=== PATIENT | male | born 1935 | race Caucasian/White ===

== ENCOUNTER → 2016-11-14 | Outpatient (CLI) | payer OTHER ==
[~2016-11-14] MED LIST: ACET-1256 PO; CEPH500C2 PO; HYDRTAB8 PO
[2016-11-14 13:17] LABS: BASO % 0.5 %; BASO ABS # 0.03 K/uL (0-0.2); COMPLETE YES; EOS % 1.6 %; HEMATOCRIT 47.8 % (42-52); IG% 0.2 %; LYMPH % 29.8 %; LYMPH ABS # 1.72 K/uL (1.2-3.4); MEAN CELL VOLUME 91.2 fL (80-100); MEAN CORPUSCULAR HEMOGLOBIN 30.3 pg (25-34); MEAN CORPUSCULAR HGB CONC 33.3 g/dl (32-36); MEAN PLATELET VOLUME 12.1 fL (7.4-10.4); MONO % 10.4 %; NEUT % 57.5 %; PLATELET COUNT 211 K/uL (130-400); RED BLOOD COUNT 5.24 M/uL (4.7-6.1); WHITE BLOOD COUNT 5.77 K/uL (4.8-10.8)
[2016-11-14 13:31] LABS: ALT/SGPT 19 U/L (12-78); BLOOD UREA NITROGEN 30 mg/dl (7-18); BUN/CREATININE RATIO 30.3 (10-20); CALCIUM 9.4 mg/dl (8.5-10.1); CARBON DIOXIDE 27 mmol/L (21-32); CHLORIDE 106 mmol/L (98-107); ESTIMATED AVERAGE GLUCOSE 123 mg/dl; GLUCOSE 147 mg/dl (70-99); HA1C FLAG Normal (Normal); POTASSIUM 4.5 mmol/L (3.5-5.1); SODIUM 142 mmol/L (136-145)
[2016-11-14 13:34] LABS: ALB/GLOB RATIO 1.3 (0.9-2); ALKALINE PHOSPHATASE 66 U/L (45-117); AST/SGOT 13 U/L (15-37)
== END | disposition home or self-care (01) ==
LOC: C.LABSPEC 12:40
PROVIDERS: ATTEND Internal Medicine
DX: R73.9 Hyperglycemia, unspecified (principal); M25.511 Pain in right shoulder

== ENCOUNTER → 2016-11-15 | Outpatient (CLI) | payer OTHER ==
--- NOTE | 2016-11-15 10:09 | DIAGNOSTIC IMAGING REPORT ---
RIGHT SHOULDER MIN 2 VIEWS ROUTINE CLINICAL HISTORY: Right shoulder pain. COMPARISON: None FINDINGS: Alignment of the right shoulder is anatomic. There is moderate AC joint arthritis and mild glenohumeral joint arthritis. No fracture or suspicious lesion is identified on this examination. IMPRESSION: 1. Moderate arthritis of the right acromioclavicular joint and mild arthritis of the glenohumeral joint. 2. No acute fracture or dislocation of the right shoulder. Electronically signed by: Ector Westfall M.D. 11/15/2016 10:07 AM Dictated Date/Time: 11/15/2016 10:06 AM
== END | disposition home or self-care (01) ==
LOC: C.RAD 09:17
PROVIDERS: ATTEND Internal Medicine
DX: M19.011 Primary osteoarthritis, right shoulder (principal)

== ENCOUNTER → 2016-11-28 | Day surgery (SDC) | payer OTHER ==
[2016-11-14 14:17] VITALS: Ht 177.8 cm; Wt 109.1 kg
--- NOTE | 2016-11-15 07:39 | CONSULTATION REPORT ---
DATE OF CONSULTATION: 11/14/2016 PREOPERATIVE CONSULTATION NOTE An 81-year-old male scheduled to undergo a right cataract surgery on 11/28/2016. He came in today for preoperative examination. MEDICAL PROBLEMS: Include: 1. 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 2. Left inguinal hernia repair on 12/23/2011. 3. Appendectomy in the remote past. 4. Nephrolithiasis with a stone at the right ureterovesicular junction, requiring intervention. 5. Osteoarthritis. 6. Crush injury of the left foot with IP dislocation and fracture of the distal phalanx. 7. History of colonic polyp. Last colonoscopy in 2011. 8. Left cataract surgery in 2011. CURRENT MEDICATIONS: Include Aleve on a p.r.n. basis. He is doing quite well. He denied any headache. No dizziness, no lightheadedness. Decreased vision right eye, scheduled for cataract surgery; he is status post left. He does have dentures. No earache, sore throat or neck pain. No chest pain, pressure or tightness. No shortness of breath. No abdominal pain, no nausea, no vomiting. No problem with his bowel movements. No problem urinating. He is complaining of right shoulder pain, this has been going on since last fall, he was doing a lot of raking. Denied any ankle edema. PHYSICAL EXAMINATION: GENERAL: Well developed, in no distress. Weight 242 pounds, height 70 inches, BMI 34.72. VITAL SIGNS: Blood pressure 148/86, pulse 80 and regular, temperature 97.9. SKIN: Warm and dry. No rash. HEENT: Wears glasses. Decreased vision right eye. Has dentures. No mucosal abnormalities in his nose, mouth or throat. NECK: Supple. Nontender. No adenopathy, no thyromegaly. No JVD. No bruit. HEART: Regular heart sounds without any murmur, rub or gallop. LUNGS: Clear. No wheezing, no rhonchi. ABDOMEN: Soft, nontender, without organomegaly or masses. Surgical scars. BACK: No spinal tenderness. EXTREMITIES: No edema, clubbing or cyanosis. Right shoulder tenderness with range of motion but the range of motion is not limited. Absent left dorsalis pedis pulse. NEUROLOGIC: He is alert and oriented. There is no evidence of any deficit. LABORATORY TESTS: 1. Electrocardiogram showed a normal sinus rhythm. First-degree AV block. No other abnormalities noted. 2. Laboratory tests which were done today included CBC with WBC count 5770, hemoglobin 15.9, hematocrit 47.8, platelet count 211,000. Sodium 142, potassium 4.5, chloride 106, CO2 of 27, BUN 30, creatinine 1.0, glucose 147, this is not fasting, hemoglobin A1c 5.9%, calcium 9.4, total bilirubin 0.5, AST 13, ALT 19, alkaline phosphatase 66, total protein 7.0, albumin 3.9. ASSESSMENT: 1. Right cataract. Scheduled for surgery. 2. Right shoulder pain, most likely osteoarthritic in nature. 3. History of left cataract surgery. 4. History of nephrolithiasis. 5. History of retropubic prostatectomy. 6. Osteoarthritis. 7. History of colonic polyp which was hyperplastic. PLAN: 1. Overall, he is doing well. 2. All his laboratory tests were done and reviewed. 3. I did order an x-ray of his right shoulder. We will get that done. 4. I do not see any contraindication to his anticipated right cataract surgery.
[~2016-11-28] VITALS: Ht 177.8 cm; Wt 109.1 kg
[~2016-11-28] MED LIST changes: +500ML BSS 0.3ML EPI 1:1000PF IRRIG ONE; -ACET-1256 PO; +ACETAMINOPHEN 325 MG TAB PO PRN; +AMVISC PLUS 0.8ML SYRINGE INT OCU ONE; +ATROPINE SULFATE 0.1 MG/ML 5ML SYR IV PRN; +BSS FLUSH ONE; -CEPH500C2 PO; +EpHEDrine SULFATE INJ 50 MG/ML AMP IV PRN; +EpINEphrine INJ 1MG/ML AMP 1 MG/ML AMP ONE; -HYDRTAB8 PO; +LACTATED RINGER'S 1000ML 500 ML IV SCH; +LIDOCAINE 3.5% OPH GEL PER APPLICATION CHARGE ONE; +LIDOCAINE HCL 1% MPF 2 ML VIAL ONE; +MIDAZOLAM HCL 1 MG/ML 2ML VIAL ONE; +MIX: 4ML BSS 1ML EPI 1:1000 PF INSTIL ONE; +NURSING VERBAL MED ORDER ONE; +OCUCOAT 1 ML SOLN IO ONE; +PHENYLEPHRINE HCL 10% OP SOLN PER DROP CHARGE OPR SCH; +POVIDONE-IODINE OP SOLN 30 ML BTL ONE; +PROPARACAINE 0.5% OP SOLN PER DROP CHARGE OPR SCH; +TOBRAMYCIN/DEXAMETHASONE OPH OINT PER APPLN CHARGE ONE
[2016-11-28] MEDS: PHENYLEPHRINE HCL 2.5% OP SOLN PER DROP CHARGE OPR SCH ×2 (06:51→06:56)
[2016-11-28] MEDS: TROPICAMIDE 1% OP SOLN PER DROP CHARGE OPR SCH ×2 (06:52→06:57)
[2016-11-28] MEDS: CYCLOPENTOLATE HCL 1% OP SOLN PER DROP CHARGE OPR SCH ×2 (06:53→06:58)
[2016-11-28] MEDS: KETOROLAC 0.5% OP SOLN PER DROP CHARGE OPR SCH ×2 (06:54→06:59)
[2016-11-28] MEDS: GATIFLOXACIN OP SOLN PER DROP CHARGE OPR SCH ×2 (06:55→07:05)
--- NOTE | 2016-11-28 06:57 | History & Physical Bridge - [place] ---
H&P Re-Evaluation Bridge Note: I have examined the patient, reviewed the History & Physical and in the interval since the performance of the History & Physical I have noted the following changes of clinical significance: No changes noted
--- NOTE | 2016-11-28 07:52 | Discharge Instructions-SurgCtr ---
Discharge Instructions Visit Reason for Visit: Cataract Right Eye Discharge Discharge Diagnosis / Problem: cataract Discharge Goals Goal(s): Improve function Activity Recommendations Activity Limitations: per Instructions/Follow-up section Anesthesia . Post Anesthesia Instructions: If you have had General Anesthesia or IV Sedation: * Do not drive today. * Resume driving when surgeon permits. * Do not make important decisions or sign legal documents today. * Call surgeon for: 1. Temperature elevations greater than 101 degrees F. 2. Uncontrollable pain. 3. Excessive bleeding. 4. Persistent nausea and vomiting. 5. Medication intolerance (nausea, vomiting or rash). * For nausea and vomiting use only clear liquids such as: tea, soda, bouillon until nausea subsides, then gradually increase diet as tolerated. * If you have any concerns or questions, call your surgeon's office. If physician is unavailable and it is an emergency, call 911 or go to the nearest emergency room. . Instructions / Follow-Up Instructions / Follow-Up ACTIVITY RECOMMENDATIONS: * No strenuous lifting, jogging or running for 4 days * No swimming or yard work for 1 week. * Limited bending is permitted, such as putting on shoes. RETURN TO SCHOOL/WORK: No work until seen by physician in office. MEDICATIONS: Resume previous medications unless instructed otherwise by your surgeon. This includes eye drops for glaucoma. Zymaxid/Gatifloxacin (hernandez cap) - one drop every 2 hours until bedtime Nevanac/Ilevro/Prolensa/Ketorolac (tarango cap) - one drop every 4 hours until bedtime Prednisolone (white/pink cap, SHAKE WELL) - one drop every 2 hours until bedtime Starting tomorrow - all 3 drops every 4 hours until seen in the office Optive drops - as needed for discomfort SPECIAL CARE INSTRUCTIONS: * Wear eyeshield when sleeping, for four nights. * You may wear your own glasses or sunglasses while awake. * You may read or watch TV * You may shower and wash your face, but be gentle around the eye and pat dry. * Blurry vision and mild irritation are normal. * Call office if pain is more severe or vision becomes dark at . FOLLOW UP VISIT: Follow-up with Dr Nelson tomorrow. Diet Recommendations Home Diet: resume previous diet Procedures Procedures Performed: Right Cataract Phacoemulsification With Intraocular Lens Implant Pending Studies Studies pending at discharge: no Medical Emergencies . Who to Call and When: Medical Emergencies: If at any time you feel your situation is an emergency, please call 911 immediately. . Non-Emergent Contact Non-Emergency issues call your: Administrator Pesticide . . "Provider Documentation" section prepared by Guilherme Nelson.
--- NOTE | 2016-11-28 07:53 | [facility] Operative Report ---
Operative Report 1. PREOPERATIVE DIAGNOSIS: Cataract of the right eye. 2. POSTOPERATIVE DIAGNOSIS: Same. 3. PROCEDURE: Phacoemulsification with intraocular lens implantation of the right eye. SURGEON: Dr. Guilherme Nelson. ANESTHESIA: Topical Lidocaine gel, 1% Non- Preserved intracameral Lidocaine, and monitored intravenous sedation. INDICATIONS FOR THE PROCEDURE: The patient is a 81 - year-old male with a history of cataract of the right eye causing significant visual impairment. The details of the proposed procedure were explained to the patient who asked appropriate questions and following discussion of all risks, benefits and alternatives agreed to have the procedure done. The patient had a know history of taking of flomax. 4. OPERATION AND FINDINGS: DESCRIPTION OF PROCEDURE: After informed consent was obtained, the patient was brought to the Operating Room at the [facility]. The patient was placed in a supine position and then the right eye was prepped and draped in the usual sterile fashion for intraocular surgery. A drop of topical Lidocaine gel was placed in the operative eye. A wire lid speculum was then placed in the fornices. A corneal paracentesis was then created temporally. The Non-Preserved Lidocaine was then instilled into the anterior chamber. Epinephrine with a 1:4 dilution was instilled into the anterior chamber. The anterior chamber was then pressurized with viscoelastic. A 2.0 mm clear corneal incision was then created temporally. A cystotome was inserted into the anterior chamber and used to create a tear in the anterior lens capsule. This capsular tear was then used to create a small flap and the flap was dragged in a counterclockwise direction in order to create a continuous curvilinear capsulorrhexis. Hydrodissection was accomplished with balanced salt solution. Phacoemulsification of the lens nucleus was then performed in a standard [id number] technique. The phaco time was 28 seconds with an average power of 10 %. The remaining cortical material was removed using irrigation aspiration. The capsular bag was then filled with viscoelastic. A Bausch [employer] Lomb MI60L +22.0 diopters lens was then loaded into the injector and injected into the capsular bag. The remaining viscoelastic was removed with the irrigation aspiration handpiece. The wound was hydrated and then checked and found to be watertight. The intraocular pressure was checked and found to be adequate. The wire lid speculum was removed and the patient's face was cleaned and dried. TobraDex ointment was placed in the inferior fornix. The patient was discharged to the Recovery Room having tolerated the procedure well. There were no complications. The patient will be seen tomorrow in the office for follow-up. I attest to the content of the Intraoperative Record and any orders documented therein. Any exceptions are noted below.
[2016-11-28 08:03] VITALS: TEMP 36.4
--- NOTE | 2016-11-28 08:03 | Anesthesia Progress Nt - [facility] ---
Anesthesia Post Op Note Date & Time Nov 28, 2016 at 08:03 Vital Signs Pain Intensity: 0 Vital Signs Past 12 Hours Date Time Temp Pulse Resp B/P Pulse Ox O2 Delivery O2 Flow Rate FiO2 11/28/16 06:40 36.8 77 18 170/91 94 Room Air Notes Mental Status: alert / awake / arousable, participated in evaluation Pt Amnestic to Procedure: Yes Nausea / Vomiting: adequately controlled Pain: adequately controlled Airway Patency, RR, SpO2: stable & adequate BP & HR: stable & adequate Hydration State: stable & adequate Anesthetic Complications: no major complications apparent
[2016-11-28 08:13] VITALS: BP 149/87; PULSE 64; O2SAT 97
== END | disposition home or self-care (01) ==
LOC: X.SURG 06:36
PROVIDERS: ATTEND Ophthalmology
DX: H26.9 Unspecified cataract (principal); H54.7 Unspecified visual loss

== ENCOUNTER → 2017-02-07 | Outpatient (CLI) | payer OTHER ==
--- NOTE | 2017-02-07 15:26 | DIAGNOSTIC IMAGING REPORT ---
ORBIT RADIOGRAPHS 3 VIEWS HISTORY: pre-MRI screening. COMPARISON: None. FINDINGS: There are no radiopaque foreign bodies identified within the orbits. IMPRESSION: No radiopaque foreign bodies identified within the orbits. Electronically signed by: Leighton Masterson M.D. 02/07/2017 3:24 PM Dictated Date/Time: 02/07/2017 3:24 PM
--- NOTE | 2017-02-07 17:26 | DIAGNOSTIC IMAGING REPORT ---
MRI right shoulder pain CLINICAL HISTORY: RIGHT SHOULDER Pain; r/o ROTATOR TEAR Right TECHNIQUE: Multiaxial MRI acquisition COMPARISON STUDY: None FINDINGS: Generalized atrophy and deterioration of the glenohumeral and acromioclavicular joints. Moderate hypertrophic change of the acromioclavicular joint with mild impingement. Hill-Sachs type deformity of the posterior lateral aspect humeral head. Degenerative change of the articular services of the glenohumeral joint. Full-thickness tear supraspinatus tendon. General maceration and deterioration of the supraspinatus musculotendinous complex. No significant musculotendinous retraction. Moderate subscapularis tendinitis. The infraspinatus tendon is intact. Moderate edematous change with superimposed biceps tendinitis. Focal tear anterior glenoid labrum. Remainder the glenoid labrum shows mild degenerative substance change. IMPRESSION: 1. Full-thickness tear supraspinatus tendon with no significant musculotendinous retraction. 2. Subscapularis tendinitis with considerable biceps tendinitis. 3. Tear anterior glenoid labrum. 4. Generalized degenerative changes of the articular services the glenohumeral region with hypertrophic change acromioclavicular joint. 5. Hill-Sachs type deformity posterior lateral aspect humeral head Electronically signed by: Reji Morse M.D. 02/07/2017 5:23 PM Dictated Date/Time: 02/07/2017 5:20 PM
== END | disposition home or self-care (01) ==
LOC: C.RADBC 15:05
PROVIDERS: ATTEND Orthopaedic Surgery
DX: M75.91 Shoulder lesion, unspecified, right shoulder (principal); M19.011 Primary osteoarthritis, right shoulder; M75.21 Bicipital tendinitis, right shoulder; M75.101 Unspecified rotator cuff tear or rupture of right shoulder, not specified as traumatic

== ENCOUNTER → 2017-07-18 | Outpatient (CLI) | payer OTHER ==
[2017-07-18 17:51] LABS: BASO % 0.5 %; BASO ABS # 0.03 K/uL (0-0.2); COMPLETE YES; EOS % 2.2 %; HEMATOCRIT 46.3 % (42-52); IG% 0.3 %; LYMPH % 25.8 %; LYMPH ABS # 1.64 K/uL (1.2-3.4); MEAN CORPUSCULAR HEMOGLOBIN 30.8 pg (25-34); MEAN CORPUSCULAR HGB CONC 33.9 g/dl (32-36); MEAN PLATELET VOLUME 11.9 fL (7.4-10.4); MONO % 10.5 %; NEUT % 60.7 %; PLATELET COUNT 230 K/uL (130-400); RED BLOOD COUNT 5.09 M/uL (4.7-6.1); WHITE BLOOD COUNT 6.36 K/uL (4.8-10.8)
[2017-07-18 18:07] LABS: ALT/SGPT 19 U/L (12-78); AST/SGOT 13 U/L (15-37); BLOOD UREA NITROGEN 19 mg/dl (7-18); CALCIUM 8.8 mg/dl (8.5-10.1); CARBON DIOXIDE 29 mmol/L (21-32); CHLORIDE 106 mmol/L (98-107); CHOLESTEROL 173 mg/dl (0-200); GLUCOSE 95 mg/dl (70-99); POTASSIUM 4.4 mmol/L (3.5-5.1); SODIUM 140 mmol/L (136-145)
[2017-07-18 18:18] LABS: ALB/GLOB RATIO 1.1 (0.9-2); ALKALINE PHOSPHATASE 69 U/L (45-117); CHOLESTEROL/HDL RATIO 3.9; HDL CHOLESTEROL 44 mg/dl; TRIGLYCERIDES 134 mg/dl (0-150); VERY LOW DENSITY LIPOPROT CALC 27 mg/dl
[2017-07-19 07:21] LABS: ESTIMATED AVERAGE GLUCOSE 126 mg/dl; HA1C FLAG Normal (Normal)
== END | disposition home or self-care (01) ==
LOC: C.LABSPEC 17:28
PROVIDERS: ATTEND Internal Medicine
DX: E78.5 Hyperlipidemia, unspecified (principal); R53.83 Other fatigue; R73.9 Hyperglycemia, unspecified

== ENCOUNTER → 2017-07-21 | Outpatient (CLI) | payer OTHER | END | disposition home or self-care (01) | LOC: C.LABSPEC 14:56 | PROVIDERS: ATTEND Internal Medicine | DX: Z12.11 Encounter for screening for malignant neoplasm of colon (principal) ==

== ENCOUNTER 2023-08-27 08:26 | Observation (INO) ==
--- NOTE | 2023-08-21 14:39 | Anesthesiology Consultation ---
Date of Service August 21, 2023 Assessment & Plan (1) Encounter for pre-operative examination: - Infectious disease screening: Per professor of law on 08/21/23: No known infectious disease contacts or current infectious disease symptoms. - Outpatient joint assessment: Pt currently scheduled for inpatient pathway. If surgeon requests review for outpatient joint pathway, patient is not recommended candidate for outpatient joint program from anesthesia standpoint. - Surgery was originally scheduled for 08/20/23 but postponed as patient arrived for surgery but did not follow NPO guidelines per communication note from that day (per , he ate few pieces of dry cereal approximately 0530 prior to noticing/instructing him to stop). Spoke with patient's (Nupur) 08/21/23- reinforced NPO after midnight before surgery instructions. She indicates that she/patient are aware to follow NPO guidelines strictly prior to rescheduled surgery. Chart Review Chart Review: Acceptable Risk for Surgery and Patient seen in Pre Admission Testing (07/25/23) History Surgery Operation Date: 08/27/23 13:15 Proposed Procedures p Right Total Knee Arthroplasty - Sean Moreno MD Height/Weight Height: 5 ft 10 in Weight: 111.584 kg Allergies Allergy/AdvReac Type Severity Reaction Status Date / Time No Known Allergies Allergy Verified 08/21/23 14:17 Medications Home Medications Medication Instructions Recorded Confirmed Last Taken aspirin 81 mg tablet,delayed 81 mg PO DAILY 03/19/21 08/21/23 Unknown release furosemide 40 mg tablet 40 mg PO BID 03/19/21 08/21/23 Unknown lisinopril 10 mg tablet 10 mg PO QAM 03/19/21 08/21/23 Unknown potassium chloride 10 mEq 10 meq PO DAILY 03/19/21 08/21/23 Unknown capsule,extended release allopurinol 200 mg tablet 200 mg PO QAM 07/23/23 08/21/23 Unknown naproxen sodium 220 mg tablet 220 mg PO BID PRN Pain 07/23/23 08/21/23 Unknown Past Medical History Medical History Pre-diabetes CKD (chronic kidney disease), stage III HTN (hypertension) Gout Right knee DJD History of melanoma in situ History of SCC (squamous cell carcinoma) of skin History of basal cell carcinoma Past Family History Family History Other No pertinent family history Past Surgical History Surgical History Hx of squamous cell carcinoma excision Hx of basal cell carcinoma excision Hx of melanoma excision Hx of colonoscopy History of prostate surgery History of hernia repair Multiple (including Right inguinal) History of cataract surgery R/L Social History Smoking Status: Never smoker Do You Dip or Chew Tobacco: Yes (advised) Hx Alcohol Use: No Hx Substance Use: No substance use type: does not use Lab Results Anesthesia Preop Results Results Anesthesia Widget: WBC 4.24 K/ul (4.8-10.8) L 07/25/23 Hgb 13.9 g/dl (14.0-18.0) L 07/25/23 Hct 42.7 % (42.0-52.0) 07/25/23 Plt 209 K/uL (130-400) 07/25/23 Na 138 mmol/L (136-145) 07/25/23 K 4.8 mmol/L (3.5-5.1) 07/25/23 Cl 105 mmol/L (98-107) 07/25/23 CO2 30 mmol/L (21-32) 07/25/23 BUN 22 mg/dl (6-23) 07/25/23 Creat 1.10 mg/dl (0.6-1.4) 07/25/23 Glucose Level 112 mg/dl (70-99(Fasting)) H 07/25/23 PT 10.7 Seconds (9.0-12.0) 07/25/23 PTT 27.8 Seconds (21.0-31.0) 07/25/23 INR 1.0 (0.9-1.1) 07/25/23 Urine Color Yellow 07/25/23 Urine Appearance Clear (Clear) 07/25/23 Urine pH 6.0 (4.5-7.5) 07/25/23 Urine Specific Grant 1.019 (1.000-1.030) 07/25/23 Urine Protein Negative (Negative) 07/25/23 Urine Glucose (UA) Negative (Negative) 07/25/23 Urine Ketones Negative (Negative) 07/25/23 Urine Blood Negative (Negative) 07/25/23 Urine Nitrite Negative (Negative) 07/25/23 Urine Bilirubin Negative (Negative) 07/25/23 Urine Urobilinogen Negative (Negative) 07/25/23 Urine Leukocyte Esterase Negative (Negative) 07/25/23 Blood Type A Positive 07/25/23 Antibody Screen NEGATIVE 07/25/23 Testing Electrocardiogram Date: 07/25/23 SB with first degree AVB at 55bpm. "Otherwise normal ECG" Chest X-Ray Date: 07/25/23 FINDINGS: PA and lateral chest radiographs are compared to study dated 03/19/2021. The heart is enlarged noting atherosclerotic calcification of the thoracic aorta. The pulmonary vasculature is noncongested. Chronic interstitial thickening similar to previous. Scarring/atelectasis is noted at the lung bases. The lungs and pleural spaces are otherwise clear. There is no pneumothorax. The skeletal structures are osteopenic. The bony thorax appears intact. IMPRESSION: Cardiomegaly with no active disease in the chest. Echocardiogram Date: 10/25/20 EF 55-60%. No regional wall motion abnormality. Borderline concentric LVH. No significant valvular disease. Grade I DD.
--- NOTE | 2023-08-25 17:39 | History & Physical Report ---
Date of Service August 25, 2023 Assessment & Plan (1) Primary osteoarthritis of right knee: Plan: Treatment options discussed with the patient. He has failed conservative measures and would like to proceed with surgery. Risks, benefits and alternatives to surgery including but not limited to infection, DVT, pain, stiffness, need for revision surgery, damage to blood vessels, damage to nerves, PE, , were discussed with the patient and they wish to proceed. Plan on right total knee arthroplasty scheduled for 08/27/23 at [facility] with Dr. Moreno. Plan on aspirin 81mg twice daily for 1 mo post op for DVT prophylaxis. Plan on outpatient physical therapy. All questions answered. Patient will follow up post op. History of Present Illness Chief Complaint: Right knee pain Primary Care Provider: Brian Ramirez MD 88yo male with PMHx significant for HTN, gout, CKD who presents with ongoing right knee pain. Pain is interfering with his daily activity. He has failed conservative measures and would like to proceed with surgery. Patient denies headaches, sweats, fevers, chills, double vision, blurred vision, cough, sore throat, dysphagia, chest pain, sob, wheezing, n/v/d/c, numbness, tingling, fatigue, urinary symptoms, mood disorders. ROS positive for right knee pain and stiffness. Allergies Allergy/AdvReac Type Severity Reaction Status Date / Time No Known Allergies Allergy Verified 08/21/23 14:17 Home Medications Medication Instructions Recorded Confirmed Type aspirin 81 mg tablet,delayed 81 mg PO DAILY 03/19/21 08/21/23 History release furosemide 40 mg tablet 40 mg PO BID 03/19/21 08/21/23 History lisinopril 10 mg tablet 10 mg PO QAM 03/19/21 08/21/23 History potassium chloride 10 mEq 10 meq PO DAILY 03/19/21 08/21/23 History capsule,extended release allopurinol 200 mg tablet 200 mg PO QAM 07/23/23 08/21/23 History naproxen sodium 220 mg tablet 220 mg PO BID PRN Pain 07/23/23 08/21/23 History Past Med/Surg History Medical History Pre-diabetes CKD (chronic kidney disease), stage III HTN (hypertension) Gout Right knee DJD History of melanoma in situ History of SCC (squamous cell carcinoma) of skin History of basal cell carcinoma Surgical History Hx of squamous cell carcinoma excision Hx of basal cell carcinoma excision Hx of melanoma excision Hx of colonoscopy History of prostate surgery History of hernia repair Multiple (including Right inguinal) History of cataract surgery R/L Family History Other No pertinent family history Social History Smoking Status: Never smoker Tobacco Type: Smokeless Tobacco (Dip or Chew) Second Hand Exposure: No; Do You Dip or Chew Tobacco: Yes (advised); Tobacco Cessation Education Requested by Patient: No Hx Alcohol Use: No Hx Substance Use: No Preferred Language: Thai Communication Ability: Effective 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 Beliefs That Will Affect Care: None Current Living Situation: Spouse Other Information That Helps Us Care for You: No Feels Safe at Home: Yes Safety Concerns: Feels Safe At This Time Assistive Devices: Brace/Splint/Immobilizer, Cane, Denture - Upper, Denture - Lower and Glasses Assistive Devices Comment: reading glasses prn Review of Systems All systems reviewed & are unremarkable except as noted in HPI & below Physical Exam Constitutional: well developed and well nourished; no acute distress Eyes: PERRL, conjunctivae normal, anicteric sclerae ENMT: external ear and nose normal, oropharynx normal Neck: trachea midline, no thyromegaly Respiratory: normal respiratory effort, lungs clear to auscultation Cardiovascular: RRR, no murmur, no edema Musculoskeletal: Right knee: Varus alignment. Medial joint line tenderness. Positive Zachary's. ROM 10-110 degrees. Stable to valgus and varus stress. Skin: no rashes, warm and dry Neurologic: patellar DTR's 2+ bilat, sensation intact Psychiatric: A+Ox3, euthymic affect Results & Data Diagnostic Findings Right knee radiographs: End-stage osteoarthritis right knee, [id number] medial compartment. There is defect of the medial femoral condyle, could be area of osteonecrosis versus collapse insufficiency fracture.
[~2023-08-27 08:26] MED LIST changes: -500ML BSS 0.3ML EPI 1:1000PF IRRIG ONE; -ACETAMINOPHEN 325 MG TAB PO PRN; +ACETAMINOPHEN 500 MG TAB PO SCH; -AMVISC PLUS 0.8ML SYRINGE INT OCU ONE; -ATROPINE SULFATE 0.1 MG/ML 5ML SYR IV PRN; -BSS FLUSH ONE; +CeleBREX 200 MG CAP PO SCH; -EpHEDrine SULFATE INJ 50 MG/ML AMP IV PRN; -EpINEphrine INJ 1MG/ML AMP 1 MG/ML AMP ONE; +FAMOTIDINE 20 MG TAB PO SCH; +GABAPENTIN 300 MG CAP PO SCH; -LACTATED RINGER'S 1000ML 500 ML IV SCH; -LIDOCAINE 3.5% OPH GEL PER APPLICATION CHARGE ONE; -LIDOCAINE HCL 1% MPF 2 ML VIAL ONE; +LR 500ML BOLUS, THEN 15ML/HR IV SCH; +LR 60ML/HR IV SCH; +METOCLOPRAMIDE HCL 10 MG TABLET PO SCH; -MIDAZOLAM HCL 1 MG/ML 2ML VIAL ONE; -MIX: 4ML BSS 1ML EPI 1:1000 PF INSTIL ONE; -NURSING VERBAL MED ORDER ONE; -OCUCOAT 1 ML SOLN IO ONE; -PHENYLEPHRINE HCL 10% OP SOLN PER DROP CHARGE OPR SCH; -POVIDONE-IODINE OP SOLN 30 ML BTL ONE; -PROPARACAINE 0.5% OP SOLN PER DROP CHARGE OPR SCH; +ROPIVACAINE 0.5% 5 MG/ML 30 ML VIAL ONE; +ROPIVACAINE 0.5% HCL/PF 150 MG, BUPIVACAINE 0.75% MPF 20 ML, EPINEPHrine 30MG/30ML (OR ... INSTIL SCH; -TOBRAMYCIN/DEXAMETHASONE OPH OINT PER APPLN CHARGE ONE; +TRANEXAMIC ACID 1,000 MG **IV Intra-op IV SCH; +TRANEXAMIC ACID 1,000 MG **IV Pre-op IV SCH; +ceFAZolin 2000MG 2,000 MG/15 ML SYR IV SCH; +dexAMETHasone 4 MG TAB PO SCH
[2023-08-27] MEDS ORDERED: PROPOFOL IV EMULSION 10 MG/ML 20 ML VIAL IV ONE ×3 (09:02→12:56)
[2023-08-27] MEDS ORDERED: LIDOCAINE 2% 2 ML VIAL/AMP(20MG/ML) INFIL ONE (09:02)
[2023-08-27] MEDS ORDERED: ePHEDrine sulfate 50 MG/ML AMP IV PRN (09:08)
[2023-08-27] MEDS ORDERED: ONDANSETRON INJ 2 MG/ML 2 ML VIAL IV PRN ×2 (09:08→17:06)
[2023-08-27] MEDS ORDERED: HYDROmorphone INJ 1 MG/ML SYRINGE IV PRN (09:08)
[2023-08-27] MEDS ORDERED: ATROPINE SULFATE 0.1 MG/ML 10ML SYR IV PRN (09:08)
[2023-08-27] MEDS ORDERED: fentaNYL citrate PF 100 MCG/2 ML VIAL ONE (09:41)
[2023-08-27] MEDS ORDERED: MIDAZOLAM HCL 1 MG/ML 2ML VIAL ONE (09:41)
--- NOTE | 2023-08-27 09:59 | History & Physical Bridge Note ---
Date of Service August 27, 2023 History & Physical Bridge Note I have examined the patient, reviewed the History & Physical and in the interval since the performance of the History & Physical I have noted the following changes of clinical significance: no changes noted
[2023-08-27] MEDS ORDERED: ORTHO JOINT ANESTHETIC ONE (10:01)
--- NOTE | 2023-08-27 13:18 | Post Operative Brief Note ---
Immediate Post Op Note v1 Date of Surgery August 27, 2023 Pre & Post Diagnosis Operation Date: 08/27/23 10:05 Pre-Op Diagnosis: Right Knee Osteoarthritis Post-Op Diagnosis: Right Knee Osteoarthritis I identified the patient and participated in the time-out.: Yes Procedure Operation Date: 08/27/23 10:05 Actual Procedures p Right Total Knee Arthroplasty(Right), roly and Acticoat superficial wound VAC application- Sean Moreno MD Surgeon Sean Moreno MD Rnfa Junaid MIRAMONTES Estimated Blood Loss 5 Findings Consistent with Post-Op Diagnosis Specimens Bone cuts Drains Davila Catheter (16F placed, 10cc balloon) Anesthesia Type MAC Spinal Regional Complications none Disposition Disposition: Recovery Room Overlapping Procedure I was immediately available: during the entire case.
--- NOTE | 2023-08-27 13:32 | Operative Report ---
Post Operative Report Pre & Post Diagnosis Operation Date: 08/27/23 10:05 Pre-Op Diagnosis: Right Knee Osteoarthritis Post-Op Diagnosis: Right Knee Osteoarthritis I identified the patient and participated in the time-out.: Yes Procedure Operation Date: 08/27/23 10:05 Actual Procedures p Right Total Knee Arthroplasty(Right) application manisha and Acticoat superficial wound VAC- Sean Moreno MD Surgeon Sean Moreno MD Wiping Rag Washer Junaid MIRAMONTES Estimated Blood Loss 5 Findings Consistent with Post-Op Diagnosis Specimens Bone cuts Drains 2 Hemovac and a Davila catheter Anesthesia Type MAC Spinal Regional Complications none Disposition Disposition: Recovery Room Indications Very active 88-year-old male with severe end-stage osteoarthritis right knee with varus knee some bone loss in the medial compartment. Description of Procedure Patient taken to the operating room the size under spinal MAC regional block anesthesia. Patient was placed supine on the operating table. A pneumatic tourniquet was placed about the right upper thigh. The right lower extremity was prepped and draped in sterile fashion. Knee exam demonstrated moderately large knee effusion a 10 degree flexion contracture with flexion to 120 degrees with no pseudolaxity tight varus knee and some chronic edema below the knee pretibial and ankle area . The leg was elevated exsanguinated with an Esmarch bandage and pneumatic tourniquet was raised to 325 millimeters of mercury. Skin incised sharply in longitudinal fashion. Subcutaneous flaps elevated. Incision was made through the medial retinaculum extending up in the mid third of the quadriceps tendon and down to the medial tibial tubercle. Intra-articular findings demonstrated severe medial compartment osteoarthritis with bone loss some of the medial tibial plateau with grade 4 arthritic changes medial compartment. Chronic medial meniscus tear. Moderate patellofemoral osteoarthritis. Some relatively scarred synovium in the suprapatellar pouch. The Floqlon total knee arthroplasty system was used. To expose the knee the infrapatellar fat pad was resected. The meniscal remnants and cruciate ligaments were resected. The anterior fat pad over the femur in the area of the location of the anterior flange of the femoral component was resected. The lateral synovial bands were released. The femur was exposed. An intramedullary drill hole was made into the canal. A guide denise was placed. Distal femoral cutting guide was adjusted to resect a 5 degree valgus cut with 10 millimeters distal femur resected. Bone quality was extremely hard and this was noted throughout the rest of the cuts throughout the the procedure. The knee was extended and a subperiosteal peel lateral release was performed around the patella. Patella width was measured and width was reproduced using a freehand cut technique and a 36 x 10 symmetrical patella component. The 3 drill holes were made and the excess lateral facet was beveled off to prevent any impingement. Attention was taken back to the femur which was exposed with retractors and the femoral sizing guide was pinned in position. The drill holes were placed in 3 of external rotation to match the epicondylar axis. The femur sized for a 7 component. The 4-in-1 cutting block was placed and then the anterior posterior and chamfer cuts are made. The tibia was then subluxed. The external tibial cutting guide was adjusted to make a perpendicular cut to the long axis of the tibia below the most deficient bone loss side. Cut was adjusted for slope. A lamina speech therapist technician was used and the flexion extension gaps were balanced. Medial releases were required including pie crusting MCL. All posterior osteophytes removed. All meniscal remnants were resected. The tibia exposed and the trial tibial component size 6 was externally rotated in line with the tibial tubercle and pinned in position. The punch for stem was used. The notch cutting device was centered appropriately and the femoral notch cut was made. The femoral trial was inserted. Trial tibial inserts were placed and size 13 gave balanced ligaments through flexion and extension. Patella tracking was assessed. The patella tracked centrally. The trial components were then removed and the orthomix anesthetic cocktail was injected per protocol. The knee was then copiously irrigated with pulsatile lavage saline solution. Final components were then cemented with Refobacin cement. Final components were triathlon size 7 right posterior stabilized femoral component, 6 primary tibial baseplate, 13 mm X.3 polyethylene tibial posterior stabilized bearing insert, 36 x 10 mm symmetrical polyethylene patella X.3 polyethylene. After the cement cur ed the Betadine soak was used for 3 minutes. Further pulsatile lavage irrigation was then performed and 2 Hemovac drains were brought out laterally. The quadriceps tendon and medial retinaculum were closed with figure of 8 #1 Vicryl sutures. The knee was taken through full range of motion and the repair was secure. Knee range of motion was 0 through 130 degrees. The subcutaneous tissues were closed with 2-0 Vicryl sutures. Skin was closed with maribell. Manisha and Acticoat superficial wound VAC was applied. The patient tolerated the procedure well. Junaid MIRAMONTES was my physician radiology physician assistant who participated as residential living assistant and was involved in all aspects of the procedure including patient positioning prepping and draping,leg positioning ,soft tissue retraction and instrument management and participated in the closing and application of superficial wound VAC and will participate in postoperative care of the patient. The patient tolerated the procedure well. I attest to the content of the Intraoperative Record and any orders documented therein. Any exceptions are noted below.
--- NOTE | 2023-08-27 14:05 | Anesthesiology Progress Note ---
Date of Service August 27, 2023 Anesthesia Post Procedure Vital Signs Vital Signs: Temp Pulse Pulse Resp BP Pulse Ox O2 Del Method 08/27/23 13:45 50 L 14 138/66 100 Nasal Cannula 08/27/23 13:35 54 L 14 134/72 100 Nasal Cannula 08/27/23 13:25 64 14 145/63 H 98 Nasal Cannula 08/27/23 13:16 36.4 C L 61 16 115/66 99 Nasal Cannula 08/27/23 08:53 37 C 68 18 174/79 H 98 Room Air O2 Flow Rate 08/27/23 13:45 2 08/27/23 13:35 3 08/27/23 13:25 3 08/27/23 13:16 3 08/27/23 08:53 Transfer of Care Handoff Completed per policy Notes Mental Status: alert / awake / arousable Patient Amnestic to Procedure: Yes Nausea / Vomiting: adequately controlled Pain: adequately controlled Airway Patency, RR, SpO2: stable & adequate BP & HR: stable & adequate Hydration State: stable & adequate Anesthetic Complications: no major complications apparent
--- NOTE | 2023-08-27 14:18 | XRay Report ---
TWO VIEWS RIGHT KNEE CLINICAL HISTORY: Postoperative examination. FINDINGS: AP and crosstable lateral portable views of the right knee are obtained. A right knee arthr oplasty is in near anatomic alignment. There has been undersurface remodeling of the patella. No acut e fracture is seen. There are expected postoperative changes around the knee including skin clips, a surgical drain, soft tissue edema, and subcutaneous gas. There is atherosclerotic calcification of th e popliteal artery. IMPRESSION: Expected postoperative changes status post right knee arthroplasty. No acute fracture is seen. ACT 112: Negative or not required by law. Electronically signed by: August Al M.D. 08/27/2023 2:16 PM
[2023-08-27] MEDS ORDERED: METOCLOPRAMIDE HCL INJ 5 MG/ML 2 ML VIAL IV PRN (17:06)
[2023-08-27] MEDS ORDERED: MAGNESIUM HYDROXIDE SUSP 30 ML UDC PO PRN (17:06)
[2023-08-27] MEDS ORDERED: bisacodyL 10 MG SUPP PR PRN (17:06)
[2023-08-27] MEDS ORDERED: HYDROmorphone INJ 0.5 MG/0.5 ML SYR IV PRN (17:06)
[2023-08-27] MEDS ORDERED: NALOXONE HCL 0.4 MG/1 ML VIAL/CARP IV PRN (17:06)
[2023-08-27] MEDS: SODIUM CHLORIDE 0.9% 1,000 ML IV SCH (17:14)
[2023-08-27] MEDS: ACETAMINOPHEN 500 MG TAB PO SCH (17:45)
[2023-08-27] MEDS: ceFAZolin 2000MG 2,000 MG/15 ML SYR IV SCH (19:46)
--- NOTE | 2023-08-27 20:15 | Hospitalist Consultation ---
Date of Consultation August 27, 2023 Assessment & Plan (1) S/P total knee arthroplasty: 88 M with PMH hypertension, CKD 3, gout, and severe right osteoarthritis, now POD#0 s/p right TKA. S/p right TKA/right knee osteoarthritis -Tolerated well without complications. Currently stable. * Continue pain control regimen: Scheduled Tylenol 1000 mg every 8 hours, p.o. oxycodone 5 mg every 4 hours as needed, IV hydromorphone 0.5 mg every 4 hours as needed * Continue cefazolin 2 g every 8 hours * Trend a.m. labs. Replete electrolytes as indicated CKD 3 -Chronic. On lisinopril 10 mg. * Continue Gout -Chronic. On allopurinol 200 mg. * Continue Code: Full code Dispo: Med-Surg FEN/GI: Regular DVT Prophylaxis: Holding, postop (2) Primary osteoarthritis of right knee: (3) CKD (chronic kidney disease), stage III: (4) HTN (hypertension): (5) Gout: Supervising Physician Co-Signing Physician Notes Attending addendum: I have physically seen this patient, have supervised the medical residents activities, and agree with the H&P unless as otherwise noted. Assessment and Plan: Status post right total knee arthroplasty- Seen postoperatively is medically stable Pain control per primary service CKD stage III/chronic lower extremity edema- On lisinopril as outpatient, Can continue as long as renal profile remains stable Continue furosemide and potassium for Renal function panel and magnesium every morning History of Present Illness Attending Physician: Sean Moreno MD History of Present Illness Star is an 88-year-old man with a history of hypertension, CKD 3, gout (on allopurinol) and severe right knee osteoarthritis, is now s/p right TKA. Hospitalist service consulted for med management. Allergies Allergy/AdvReac Type Severity Reaction Status Date / Time No Known Allergies Allergy Verified 08/27/23 08:45 Home Medications Medication Instructions Recorded Confirmed Type furosemide 40 mg tablet 40 mg PO BID 03/19/21 08/27/23 History lisinopril 10 mg tablet 10 mg PO QAM 03/19/21 08/27/23 History potassium chloride 10 mEq 10 meq PO DAILY 03/19/21 08/27/23 History capsule,extended release allopurinol 200 mg tablet 200 mg PO QAM 07/23/23 08/27/23 History acetaminophen 500 mg tablet 1,000 mg (2 x 500 mg) PO Q8 #60 08/29/23 Rx (Tylenol Extra Strength) tabs aspirin 81 mg tablet,delayed 81 mg PO BID #60 tabs 08/29/23 Rx release oxycodone 5 mg tablet 5 - 10 mg (1 - 2 x 5 mg) PO 08/29/23 Rx .Q4h-6h PRN pain #30 tabs Patient History Medical History (Updated 08/27/23 @ 20:31 by Josh Alamo MD) Pre-diabetes CKD (chronic kidney disease), stage III HTN (hypertension) Gout Right knee DJD History of melanoma in situ History of SCC (squamous cell carcinoma) of skin History of basal cell carcinoma Surgical History (Updated 08/27/23 @ 20:18 by Josh Alamo MD) Hx of squamous cell carcinoma excision Hx of basal cell carcinoma excision Hx of melanoma excision Hx of colonoscopy History of prostate surgery History of hernia repair Multiple (including Right inguinal) History of cataract surgery R/L Family History Other No pertinent family history Social History Smoking Status: Never smoker Tobacco Type: Smokeless Tobacco (Dip or Chew) Second Hand Exposure: No; Do You Dip or Chew Tobacco: Yes (advised); Hx Alcohol Use: No Hx Substance Use: No Preferred Language: Congolese Communication Ability: Effective Switchboard Clerk Required: No Beliefs That Will Affect Care: None Current Living Situation: Spouse Feels Safe at Home: Yes Assistive Devices: Cane Review of Systems Review of Systems: All systems reviewed & are unremarkable except as noted in HPI & below Physical Exam Physical Exam: General: No acute distress Respiratory: Normal respiratory effort, CTABL. Cardiovascular: RRR without murmurs, gallops, or rubs. No pedal edema. GI: Soft abdomen with normal bowel sounds heard on auscultation. Nontender x4 quadrants Extremity (right): knee is covered in dressing. Dressing is clean, dry and intact. Neuro: Alert and oriented x3. Results & Data Results & Data Vital Signs (Past 12 Hours) Vital Signs Temp Pulse Pulse Resp BP Pulse Ox O2 Del Method 08/27/23 18:27 36.6 C 71 16 165/71 H 96 Room Air 08/27/23 17:33 75 16 157/79 H 94 Room Air 08/27/23 17:15 Room Air 08/27/23 17:04 36.5 C 67 16 158/76 H 95 Room Air 08/27/23 16:40 36.5 C 77 17 158/71 H 96 Room Air 08/27/23 15:45 36.4 C L 61 16 148/71 H 100 Room Air 08/27/23 14:45 36.4 C L 67 15 157/91 H 100 Nasal Cannula 08/27/23 14:15 36.4 C L 48 L 18 135/66 100 Nasal Cannula 08/27/23 13:45 50 L 14 138/66 100 Nasal Cannula 08/27/23 13:35 54 L 14 134/72 100 Nasal Cannula 08/27/23 13:25 64 14 145/63 H 98 Nasal Cannula 08/27/23 13:16 36.4 C L 61 16 115/66 99 Nasal Cannula 08/27/23 08:53 37 C 68 18 174/79 H 98 Room Air O2 Flow Rate 08/27/23 18:27 08/27/23 17:33 08/27/23 17:15 08/27/23 17:04 08/27/23 16:40 08/27/23 15:45 0 08/27/23 14:45 2 08/27/23 14:15 2 08/27/23 13:45 2 08/27/23 13:35 3 08/27/23 13:25 3 08/27/23 13:16 3 08/27/23 08:53 Resident Activity Tracking Resident Involvement: Resident Care Provided Care Provided: Adult Hospital Medicine (1) S/P total knee arthroplasty Laterality: right Qualified Code(s): Z96.651 - Presence of right artificial knee joint (3) CKD (chronic kidney disease), stage III Chronic kidney disease stage 3 subtype: unspecified whether 3a or 3b Qualified Code(s): N18.30 - Chronic kidney disease, stage 3 unspecified (4) HTN (hypertension) Hypertension type: unspecified Qualified Code(s): I10 - Essential (primary) hypertension (5) Gout Chronicity: unspecified Laterality: unspecified laterality
[2023-08-27] MEDS: CeleBREX 200 MG CAP PO SCH (20:22)
[2023-08-27] MEDS: FUROSEMIDE 40 MG TAB PO SCH (20:22)
[2023-08-27] MEDS: ASPIRIN 81 MG ECTAB PO SCH (20:22)
[2023-08-27] MEDS ORDERED: DOCUSATE SODIUM 100 MG CAP PO SCH (21:00)
[2023-08-27] MEDS ORDERED: SENNA 8.6 MG TAB PO SCH (21:00)
[2023-08-28] MEDS: ceFAZolin 2000MG 2,000 MG/15 ML SYR IV SCH (03:16)
[2023-08-28] MEDS: SODIUM CHLORIDE 0.9% 1,000 ML IV SCH (04:19)
[2023-08-28] MEDS: ACETAMINOPHEN 500 MG TAB PO SCH ×3 (05:54→21:32)
--- NOTE | 2023-08-28 07:40 | Orthopedic Progress Note ---
Date of Service August 28, 2023 Assessment & Plan (1) Primary osteoarthritis of right knee: Plan: Postop day #1 right total knee arthroplasty -PT/OT -Pain management as written -DVT prophylaxis: SCDs, teds, aspirin 81 mg twice daily -A.m. labs are pending -Discharge planning: Plan on discharge home with home health when stable. Currently Hemovac over 200 last shift. Will monitor Hemovac output throughout the day and likely discharge home tomorrow. Admission and Anticipated Discharge Date Admission Date: August 27, 2023 Subjective Patient is postop day 1 right total knee. He is doing well this morning. Pain is controlled. No other complaints. Denies chest pain, shortness of breath, nausea/vomiting/diarrhea, headaches or dizziness. He did have an episode overnight in which she attempted to go to the bathroom by himself with a cane. Nursing staff assisted him back to bed. Review of Systems Review of Systems: All systems reviewed & are unremarkable except as noted in Subjective Physical Exam Physical Exam: Right knee: Dressing is clean, dry, intact. Toes are mobile with good dorsiflexion. No calf tenderness. Patient is able to straight leg raise With no extensor lag. Constitutional: WD/WN, vitals as above Results & Data Vital Signs (Past 12 Hours) Vital Signs Temp Pulse Resp BP Pulse Ox O2 Del Method 08/28/23 07:14 36.7 C 62 16 161/81 H 95 Room Air 08/28/23 02:54 36.5 C 67 18 160/75 H 96 Room Air 08/28/23 01:30 36.5 C 75 20 160/82 H 95 Room Air 08/27/23 23:15 36.5 C 66 18 133/66 96 Room Air 08/27/23 20:00 Room Air 08/27/23 20:00 36.4 C L 78 20 174/89 H 96 Room Air
[2023-08-28] MEDS: CeleBREX 200 MG CAP PO SCH (07:51)
[2023-08-28] MEDS: ASPIRIN 81 MG ECTAB PO SCH ×2 (07:51→21:32)
[2023-08-28] MEDS: FUROSEMIDE 40 MG TAB PO SCH ×2 (07:51→17:19)
[2023-08-28] MEDS: allopurinoL 100 MG TAB PO SCH (07:52)
[2023-08-28] MEDS: lisinopril 10 MG TAB PO SCH (07:52)
[2023-08-28] MEDS: POTASSIUM CHLORIDE 10 MEQ TABCR PO SCH (07:53)
[2023-08-28] MEDS: MULTIVITAMIN TAB PO SCH (07:53)
[2023-08-28 08:13] LABS: Hemoglobin 13.4 g/dl (14.0-18.0); Mean Corpuscular Hemoglobin 30.5 pg (25.0-34.0); Mean Corpuscular Hgb Conc 33.5 g/dL (32.0-36.0); Mean Corpuscular Volume 91.1 fL (80.0-100.0); Mean Platelet Volume 10.8 fL (9.4-12.4); Platelet Count 202 K/uL (130-400); RDW Coefficient of Variation 12.9 % (11.5-14.5); RDW Standard Deviation 42.5 fL (36.4-46.3); Red Blood Count 4.39 M/uL (4.70-6.10); White Blood Count 11.37 K/ul (4.8-10.8)
[2023-08-28 08:43] LABS: BUN Creatinine Ratio 20.2 (10-20); Calcium 8.5 mg/dl (8.6-10.3); Creatinine Clr Calc Pharmacy 49.2 ml/min; Est GFR (African American) 57.4 ml/min; Est GFR (Non-African American) 49.5 ml/min; Magnesium 1.7 mg/dl (1.7-2.4); Phosphorus 2.8 mg/dl (2.5-4.9); Potassium 4.3 mmol/L (3.5-5.1)
--- NOTE | 2023-08-28 19:11 | Hospitalist Progress Note ---
Date of Service August 28, 2023 Assessment & Plan (1) Primary osteoarthritis of right knee: Plan: Postop day #1right total knee arthroplasty Pain is fairly managed, possible discharge tomorrow according to orthopedic note - (2) Gout: Plan: Continue allopurinol (3) HTN (hypertension): Plan: Blood pressure is fairly managed with the current treatment (4) CKD (chronic kidney disease), stage III: Plan: Stable Admission and Anticipated Discharge Date Admission Date: August 27, 2023 Subjective I spoke to the patient, the pain is fairly managed, patient has a LEIGHANN drain, complaining of dribbling, stating that this has been going on since he had prostatectomy Physical Exam Physical Exam: Right knee: Dressing is clean, dry, intact. Toes are mobile with good dorsiflexion. No calf tenderness. Patient is able to straight leg raise With no extensor lag. Constitutional: WD/WN, vitals as above well developed and well nourished; no acute distress Eyes: PERRL, conjunctivae normal, anicteric sclerae ENMT: Mouth: + dentures Mallampati Class: I Neck: trachea midline, no thyromegaly normal visual inspection Respiratory: normal respiratory effort, lungs clear to auscultation normal respiratory effort Auscultation: lungs clear to auscultation bilaterally Cardiovascular: RRR, no murmur, no edema Rate/Rhythm: regular rate and regular rhythm Skin: no rashes, warm and dry Neurologic: patellar DTR's 2+ bilat, sensation intact Psychiatric: A+Ox3, euthymic affect Results & Data Results & Data Vital Signs (Past 12 Hours) Vital Signs Temp Pulse Resp BP Pulse Ox O2 Del Method 08/28/23 14:41 36.6 C 63 16 127/68 97 Room Air 08/28/23 08:21 Room Air 08/28/23 07:14 36.7 C 62 16 161/81 H 95 Room Air PG Care Time/CCT Total # of Minutes Spent Total Time Spent with Patient: Total time spent is greater than 50% in coordination of care (as documented) at patient's floor/unit and/or counseling patient: Coding Level of Care Code 31844 SUB INP/OBS CARE 2/35MIN Diagnoses Primary osteoarthritis of right knee M17.11 Gout M10.9 Chronicity: unspecified Laterality: unspecified laterality Hypertension, unspecified type I10 Hypertension type: unspecified Stage 3 chronic kidney disease, unspecified whether stage 3a or 3b CKD N18.30 Chronic kidney disease stage 3 subtype: unspecified whether 3a or 3b (2) Gout Chronicity: unspecified Laterality: unspecified laterality (3) HTN (hypertension) Hypertension type: unspecified Qualified Code(s): I10 - Essential (primary) hypertension (4) CKD (chronic kidney disease), stage III Chronic kidney disease stage 3 subtype: unspecified whether 3a or 3b Qualified Code(s): N18.30 - Chronic kidney disease, stage 3 unspecified
[2023-08-28] MEDS: POLYETHYLENE (MIRALAX) 17 GM PACK PO PRN (21:36)
[2023-08-29] MEDS: oxyCODONE HCL IR 5 MG TAB (IMMEDIATE RELEASE) PO PRN ×2 (00:03→10:54)
[2023-08-29] MEDS: ACETAMINOPHEN 500 MG TAB PO SCH (06:06)
--- NOTE | 2023-08-29 07:09 | Orthopedic Progress Note ---
Date of Service August 29, 2023 Assessment & Plan (1) Primary osteoarthritis of right knee: Plan: Postop day #2 right total knee arthroplasty -PT/OT -Pain management as written -DVT prophylaxis: SCDs, teds, aspirin 81 mg twice daily -AM labs from POD#1 demonstrate mild leukocytosis likely reactive due to surgical stress vs perioperative steroids. Patient is asymptomatic. Only mild drop in Hgb from 13.9 preop to 13.4. -Discharge planning: Plan on discharge home with home health today. Admission and Anticipated Discharge Date Admission Date: August 27, 2023 Subjective Patient resting in bed, easily awoken. Doing well. Pain controlled. Hemovac d/c early this AM. Ambulating well. No current complatins. Denies chest pain, sob, dizziness, headaches. Review of Systems Review of Systems: All systems reviewed & are unremarkable except as noted in Subjective Physical Exam Physical Exam: Right knee: Manisha dressing is clean, dry, intact. Mild post operative swelling, no erythema. Toes are mobile with good dorsiflexion. No calf tenderness. Distally n/v status and sensation grossly intact. Constitutional: WD/WN, vitals as above Results & Data Vital Signs (Past 12 Hours) Vital Signs Temp Pulse Resp BP Pulse Ox O2 Del Method 08/28/23 20:42 36.5 C 66 18 128/53 L 95 Room Air Laboratory Results Lab Results 08/28/23 Range/Units 07:54 WBC 11.37 H (4.8-10.8) K/ul RBC 4.39 L (4.70-6.10) M/uL Hgb 13.4 L (14.0-18.0) g/dl Hct 40.0 L (42.0-52.0) % MCV 91.1 (80.0-100.0) fL MCH 30.5 (25.0-34.0) pg MCHC 33.5 (32.0-36.0) g/dL RDW Std Deviation 42.5 (36.4-46.3) fL RDW Coeff of Herbie 12.9 (11.5-14.5) % Plt Count 202 (130-400) K/uL MPV 10.8 (9.4-12.4) fL Sodium 137 (136-145) mmol/L Potassium 4.3 (3.5-5.1) mmol/L Chloride 103 (98-107) mmol/L Carbon Dioxide 30 (21-32) mmol/L Anion Gap 4 (3-11) BUN 26 H (6-23) mg/dl Creatinine 1.29 (0.6-1.4) mg/dl Est Cr Clr Drug Dosing 49.2 ml/min Est GFR ( Amer) 57.4 ml/min Est GFR (Non-Af Amer) 49.5 ml/min BUN/Creatinine Ratio 20.2 H (10-20) Glucose 130 H (70-99(Fasting)) mg/dl Calcium 8.5 L (8.6-10.3) mg/dl Phosphorus 2.8 (2.5-4.9) mg/dl Magnesium 1.7 (1.7-2.4) mg/dl
--- NOTE | 2023-08-29 07:15 | Discharge Summary ---
Date of Service August 29, 2023 Admission HPI Per Admitting Provider 88yo male with PMHx significant for HTN, gout, CKD who presents with ongoing right knee pain. Pain is interfering with his daily activity. He has failed conservative measures and would like to proceed with surgery. Patient denies headaches, sweats, fevers, chills, double vision, blurred vision, cough, sore throat, dysphagia, chest pain, sob, wheezing, n/v/d/c, numbness, tingling, fatigue, urinary symptoms, mood disorders. ROS positive for right knee pain and stiffness. Admission Exam Per Admitting Provider Constitutional: well developed and well nourished; no acute distress Eyes: PERRL, conjunctivae normal, anicteric sclerae ENMT: external ear and nose normal, oropharynx normal Neck: trachea midline, no thyromegaly Respiratory: normal respiratory effort, lungs clear to auscultation Cardiovascular: RRR, no murmur, no edema Musculoskeletal: Right knee: Varus alignment. Medial joint line tenderness. Positive Zachary's. ROM 10-110 degrees. Stable to valgus and varus stress. Skin: no rashes, warm and dry Neurologic: patellar DTR's 2+ bilat, sensation intact Psychiatric: A+Ox3, euthymic affect Principal Diagnosis Right knee osteoarthritis Discharge Exam Right knee: Manisha dressing is clean, dry, intact. Mild post operative swelling, no erythema. Toes are mobile with good dorsiflexion. No calf tenderness. Distally n/v status and sensation grossly intact. Constitutional WD/WN, vitals as above Discharge Data Allergies Allergy/AdvReac Type Severity Reaction Status Date / Time No Known Allergies Allergy Verified 08/27/23 08:45 Consultations 08/22/23 16:08 Consult Hospitalist Routine Procedures Performed Operation Date: 08/27/23 10:05 Actual Procedures p Right Total Knee Arthroplasty(Right) - Sean Moreno MD Ordered Studies 08/27/23 05:00 US - OR guided needle placemen Routine Hospital Course (1) Primary osteoarthritis of right knee: Postop day #2 right total knee arthroplasty -PT/OT -Pain management as written -DVT prophylaxis: SCDs, teds, aspirin 81 mg twice daily -AM labs from POD#1 demonstrate mild leukocytosis likely reactive due to surgical stress vs perioperative steroids. Patient is asymptomatic. Only mild drop in Hgb from 13.9 preop to 13.4. -Discharge planning: Plan on discharge home with home health today. Postop day #1 right total knee arthroplasty -PT/OT -Pain management as written -DVT prophylaxis: SCDs, teds, aspirin 81 mg twice daily -A.m. labs are pending -Discharge planning: Plan on discharge home with home health when stable. Currently Hemovac over 200 last shift. Will monitor Hemovac output throughout the day and likely discharge home tomorrow. Lab Results 08/28/23 Range/Units 07:54 WBC 11.37 H (4.8-10.8) K/ul RBC 4.39 L (4.70-6.10) M/uL Hgb 13.4 L (14.0-18.0) g/dl Hct 40.0 L (42.0-52.0) % MCV 91.1 (80.0-100.0) fL MCH 30.5 (25.0-34.0) pg MCHC 33.5 (32.0-36.0) g/dL RDW Std Deviation 42.5 (36.4-46.3) fL RDW Coeff of Herbie 12.9 (11.5-14.5) % Plt Count 202 (130-400) K/uL MPV 10.8 (9.4-12.4) fL Sodium 137 (136-145) mmol/L Potassium 4.3 (3.5-5.1) mmol/L Chloride 103 (98-107) mmol/L Carbon Dioxide 30 (21-32) mmol/L Anion Gap 4 (3-11) BUN 26 H (6-23) mg/dl Creatinine 1.29 (0.6-1.4) mg/dl Est Cr Clr Drug Dosing 49.2 ml/min Est GFR ( Amer) 57.4 ml/min Est GFR (Non-Af Amer) 49.5 ml/min BUN/Creatinine Ratio 20.2 H (10-20) Glucose 130 H (70-99(Fasting)) mg/dl Calcium 8.5 L (8.6-10.3) mg/dl Phosphorus 2.8 (2.5-4.9) mg/dl Magnesium 1.7 (1.7-2.4) mg/dl Total Time Total Time Spent Total Time Spent (In Minutes): 20 Discharge Plan Discharge Items Patient Disposition: Home - Home Health Services Reason For Visit: POST OP Discharge Diagnosis: Right knee osteoarthritis Activity: Per Instructions section Non-emergency contact: Surgeon Call non-emergency contact if: you have any medication questions, your pain is concerning for you, you have a fever, your temperature is above 101, your wound has increased redness and your wound has increased drainage Follow-up/Referrals: Brian Ramirez MD [Primary Care Provider] - Diet: Regular Addtl Attending Provider Instructions: ACTIVITY RECOMMENDATIONS: SELF CARE INSTRUCTIONS AFTER TOTAL KNEE REPLACEMENT A. You may need to continue a physical therapy program after discharge from the hospital. There are several options available to you. Your doctor will assist you in selecting the best one for you. 1. An out-patient facility 2 to 3 times a week for therapy or home therapy. 2. Continue working on all exercises taught to you in the hospital. Your goals should be to increase bending of your knee to 90 degrees and beyond and to fully straighten your knee. B. You may progress at your own pace from walking with a walker or crutches to a cane; then to no assistive devices. C. Make walking a part of your daily routine. Be up as much as comfortable with rest periods throughout the day. Rest with leg elevation is very important. Use the ice wrap frequently for the first 3-4 weeks. D. There are no restrictions on activities. 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 E. Wear the long elastic stockings (PEYTON hose) 20 hours a day for 2 weeks after surgery. They can be removed several times a day for laundering and for a bath. F. You may shower, no tub baths until cleared by your doctor. SPECIAL CARE INSTRUCTIONS: VERY IMPORTANT TO READ AND REVIEW A. There are a few signs you need to watch for after you are home. Call [facility] if you notice any of the followin. Increased severe knee pain. Some pain is expected especially when you exercise. 2. Increased swelling in your leg or knee; pain or swelling of the calf mu scle in either lower leg. 3. Any fluid drainage from the incision. 4. Shortness of breath or chest pain. B. Please call [facility] at if you have any concerns or questions about your operation or recovery. The doctor or his nurse will return your call promptly. C. You must take antibiotics before dental work, bladder, bowel or other surgery. Your doctor will provide you with a permanent care to carry describing this precaution. IMPORTANT: * REMEMBER TO TAKE ASPIRIN, 81 MG, TWICE DAILY FOR 4 WEEKS UNLESS OTHERWISE DIRECTED. THIS IS YOUR BLOOD THINNER. * HIGH RISK PATIENTS MAY BE PRESCRIBED A STRONGER BLOOD THINNER. THIS WILL BE PROVIDED AT DISCHARGE. * CALL IF INCREASED PAIN, REDNESS, DRAINAGE OR FEVER GREATER THAT 101. * WEAR PEYTON HOSE 20 HOURS PER DAY FOR 2 WEEKS. There is a large suction dressing covering your incision. This will help pull any excess drainage from the wound and allow your incision to heal properly. You may shower with this if you can keep the unit outside of the shower. If any bleeding or leakage is noted please call your doctor's office. This will remain on your incision for 7 days and then should be removed. This can be done yourself or by the home nursing staff if applicable. The entire unit is disposable once removed. Once removed, keep incision clean and dry. If redness or drainage is noted, please call your surgeon. IF INCISION IS LEAKING THROUGH DRESSING, CALL THE OFFICE . FOLLOW UP VISIT: If appointment is not already scheduled: Please call [facility] to make a follow-up appointment for 2 weeks after your surgery at . Stand-Alone Forms: My [facility] [employer], Smoking Cessation Medications and DC Order Prescriptions: New acetaminophen [Tylenol Extra Strength] 500 mg Tablet 1,000 mg PO Q8 Qty: 60 0RF aspirin 81 mg Tablet,Delayed Release (Dr/Ec) 81 mg PO BID Qty: 60 0RF oxycodone 5 mg Tablet 5 - 10 mg PO .Q4h-6h MDD 6 PRN (Reason: pain) Qty: 30 0RF Rx Instructions: Ongoing therapy, Dr. Moreno supervising Continued furosemide 40 mg tablet 40 mg PO BID lisinopril 10 mg tablet 10 mg PO QAM potassium chloride 10 mEq capsule, extended release 10 meq PO DAILY allopurinol 200 mg Tablet 200 mg PO QAM Discontinued aspirin [Aspir-Low] 81 mg Tablet,Delayed Release (Dr/Ec) 81 mg PO DAILY naproxen sodium 220 mg Tablet 220 mg PO BID PRN (Reason: Pain) Admission Data Admit Date/Time: 08/27/23 13:20 Attending Provider: Sean Moreno Admit Provider: Sean Moreno Primary Care Provider: Brian Ramirez Other Providers: Mejia Penaloza; Garth Ferguson; [facility]
[2023-08-29] MEDS: ASPIRIN 81 MG ECTAB PO SCH (08:10)
[2023-08-29] MEDS: allopurinoL 100 MG TAB PO SCH (08:11)
[2023-08-29] MEDS: MULTIVITAMIN TAB PO SCH (08:12)
[2023-08-29] MEDS: FUROSEMIDE 40 MG TAB PO SCH (08:12)
[2023-08-29] MEDS: lisinopril 10 MG TAB PO SCH (08:12)
[2023-08-29] MEDS: POTASSIUM CHLORIDE 10 MEQ TABCR PO SCH (08:12)
[2023-08-29] MEDS: POLYETHYLENE (MIRALAX) 17 GM PACK PO PRN (08:17)
--- NOTE | 2023-08-30 19:11 | Billing Data ---
Date of Service August 30, 2023 Coding Level of Care Code 12310 INT INP/OBS CARE
--- OUTSIDE RECORDS SUMMARY | 2023-08-31 10:28 | External Medical Summary | Summary of Care ---
Author Name Unknown Organization [facility] Address [address] [place] [address] Phone [phone] Care Team Providers Care Lathe Tender Name Role Phone Jam Loo DO Primary Care Provider [phone] Reason for Referral * Precert (Within 10 days (routine)) - Authorized Specialty Diagnoses / Procedures Referred By Contac t Referred To Contact Cardiac Studies Diagnoses Enlarged thoracic aorta (HCC) Procedures ECHO, COMPLETE (2D), TRANS-THORACIC Jam Loo DO [address] [place] [address] Referral ID Status Reason Start Date Expiration Date V isits Requested Visits Authorized [id number] Authorized Precert 08/11/2024 999 999 Reason for Visit * Reason Onset Date Comments Appointment 08/11/2023 Encounter Details Date Type Department Care Team (Late st Contact Info) Description 08/11/2023 Telephone Family Practice [address] [place] [address] [place] [address] Jam Loo DO [address], [place] [id number] Appointment Allergies No known active allergiesdocumented as of this encounter (statuses as of 08/20/2023) Medications Medication Sig Dispensed Refills Start Date End Date Status Aspirin 81 MG Tablet Take 1 Tablet by mouth in the morning. 0 Active Diclofenac Sodium 1 % External Gel (Voltaren) Apply topically to affected area 2 g in the morning AND 2 g before bedtime. Apply to bilateral knees. 100 g 3 05/07/2022 Active Allopurinol 100 MG Oral Tablet (Zyloprim)Indication s:Gouty arthropathy Take 2 Tablets by mouth in the morning. 200 Tablet 3 04/01/2023 Active Lisinopril 10 MG Oral Tablet (Prinivil)Indication s:Hypertensive kidney disease with stage 3a chronic kidney disease (HCC),HTN, goal below 140/90 Take 1 Tablet by mouth in the morning. 90 Tablet 3 04/29/2023 Active Potassium Chloride ER 10 MEQ Oral Capsule Extended ReleaseIndications:H ypertensive kidney disease with stage 3a chronic kidney disease (HCC),HTN, goal below 140/90 Take 1 Capsule by mouth in the morning. 90 Capsule 3 04/29/2023 Active Acetaminophen 500 MG Oral Tablet (Tylenol) Take 2 Tablets by mouth every 6 hours as needed for Pain, Moderate. 0 08/04/2023 Active Furosemide 40 MG Oral Tablet (Lasix)Indications:H ypertensive kidney disease with stage 3a chronic kidney disease (HCC) Take 1 Tablet by mouth in the morning. 90 Tablet 1 08/04/2023 Active documented as of this encounter (statuses as of 08/20/2023) Active Problems Problem Noted Date Diagnosed Date Aneurysm of ascending aorta without rupture 07/21 Hypertensive kidney disease with stage 3a chronic kidney disease 12/30/2022 Prediabetes 08/28/2022 Primary osteoarthritis of both knees 04/26/2022 Gouty arthropathy 03/22/2022 Chronic kidney disease, stage 3a 02/25/2022 Overview: Per CKD protocol HTN, goal below 140/90 01/30/2022 Pure hypercholesterolemia 01/30/2022 Inguinal hernia, left 01/07/2012 ADVANCE DIRECTIVE INFORMATION 03/27/2007 Overview: Yes, Patient instructed to provide copy of advance directive for provider to review and to be scanned into Electronic Medical Record Malignant neoplasm of skin 09/30/2002 Overview: ICD-10 update of inactive term Sensorineural hearing loss, bilateral 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 documented as of this encounter (statuses as of 08/20/2023) Resolved Problems Problem Noted Date Diagnosed Date Resolved Date Seborrheic dermatitis 09/30/20022021 Overview: ICD-10 update of inactive term Presbyacusis 01/30/2022 documented as of this encounter (statuses as of 08/20/2023) Immunizations Name Administration Dates Next Due COVID-19 mRNA, LNP-s, No Pre serve, 2-Dose Series (Moderna) 12/27/2020,11/29/2020 COVID-19, mRNA, LNP-s, PF, B ooster, 100mcg/0.5mg (Moderna) 10/10/2021 Pneumococcal Conjugate Vaccine, 20-valent (Prevn ar20) 12/30/2022 Seasonal Influenza Virus Vac cine, Unspecified Formulation 12/09/2015 Seasonal Influenza, Quadrivalent Hd (Fluzone Hd) 08/04/2023,08/28/2022 TDAP (age 10 and older)(Boostrix) 03/12/2022 Zoster Vaccine Recombinant (Shingrix) 08/28/2022 ,03/12/2022 documented as of this encounter Social History Tobacco Use Types Packs/Day Years Used Date Smoking Tobacco: Never Passive Smoke Exposure: Past Smokeless Tobacco: Current Snuff Comments:chew-one can a week Alcohol Use Standard Drinks/Week Comments Yes 0 (1 standard drink = 0.6 oz pur e alcohol) rarely PHQ-2 Answer Date Recorded PHQ Adult Total Score 0 04/29/2023 Hunger Vital Sign Answer Date Recorded Within the past 12 months, y ou worried that your food would run out before you got the money to buy more. Never true 04/29/20 23 Within the past 12 months, t he food you bought just didn't last and you didn't have money to get more. Never true 04/29/2023 Sex and Gender Information Value Date Recorded Sex Assigned at Male 01/30/2022 7:58 AM EDT Gender Identity Male 01/30/2022 7:58 AM EDT Sexual Orientation Straight 01/30/2022 7: 58 AM EDT Job Start Date Occupation Industry Not on file Not on file Not on file documented as of this encounter Miscellaneous Notes * Telephone Encounter - Verenice Stephens OSA - 08/11/2023 3:54 PM EDT Apt scheduled next year. Pt will be contacted closer to that date w details. * Telephone Encounter - Josiane Slater LPN - 08/11/2023 3:13 PM EDT Spoke to , aware and will comply. Please schedule in one year * Telephone Encounter - Josiane Slater LPN - 08/11/2023 3:10 PM EDT ----- Message from Jam Loo DO sent at 08/08/2023 12:56 PM EDT ----- Thoracic aorta is enlarged Repeat Echo in 1 year documented in this encounter Plan of Treatment Upcoming Encounters Date Type Department Care Team (Late st Contact Info) Description 09/01/2023 4:00 PM EST Office Visit Family Practice [address] [facility] [address] [place] [address] Jam Loo DO [address] [place] [address] 08/11/2024 8:30 AM EDT Cardiac Studies Cardiac Studies, [facility] [address] [facility] [place] [address] Scheduled Orders Name Type Priority Associated Diagnoses Orde r Schedule ECHO, COMPLETE (2D), TRANS-THORACIC Echocardiology Routine Enlarged thoracic aorta (HCC) Expected: 08/11/2024, Expires: 09/11/2025 Health Maintenance Due Date Last Done Comments COVID-19 Vaccine ( season) 2023 10/10/2021, 12/27/2020, 11/29/2020 Albumin/Creatinine Ratio 08/28/2023 08/28/2022 CKD HGB USE SMARTSET 28148 04/29/202404/29, 04/29/2023, 03/06/2022, Additional history exists CKD PHOS USE SMARTSET 94393 04/29/2024 04/29/2023, 0 03/22/2022 Depression Screening 04/29/2024 04/29/2023 HbA1c 04/29/2024 04/29/2023, 12/18, 08/28/2022, Additional history exists DTaP,Tdap,and Td Vaccines (2 - Td or Tdap) 03/12/2032 03/12/2022, 10/20/2012 Zoster Vaccines Completed 08/28/2022, 03/12/2022 Pneumococcal Vaccine: 65+ Years Completed 12/30/2022 Influenza Vaccine (FLU shot) Completed , 08/28/2022, 12/09/2015 GARDASIL-HPV IMMUNIZATION SERIES Aged Out No longer eligible based on patient's age to complete this topic Hepatitis B Aged Out No longer eligi ble based on patient's age to complete this topic MENINGOCOCCAL (MENACTRA/MENVEO) Aged Out No longer eligible based on patient's age to complete this topic documented as of this encounter Medical Devices Not on filedocumented as of this encounter Visit Diagnoses Diagnosis Enlarged thoracic aorta (HCC)- Primary Thoracic aortic ectasia documented in this encounter Care Teams Lathe Tender Relationship Specialty Start Date End Date Jam Loo DO [address] [place] [address] PCP - General Internal Medicine 02/18/22 documented as of this encounter
--- OUTSIDE RECORDS SUMMARY | 2023-08-31 10:29 | External Medical Summary | Summary of Care ---
Author Name Unknown Organization [facility] Address [address] [place] [address] Phone [phone] Care Team Providers Care Shipping/Receiving Manager Name Role Phone Jam Loo DO Primary Care Provider [phone] Reason for Visit * Reason Comments Follow Up Encounter Details Date Type Department Care Team Description 04/29/2023 Office Visit Family Practice [address] [place] [address] [place] [address] Jam Loo DO [address] [place] [address] Hypertensive kidney disease with stage 3a chronic kidney disease (HCC)*; Prediabetes; Primary osteoarthritis of both knees; Gouty arthropathy; Sensorineural hearing loss, bilateral; HTN, goal below 140/90 Allergies No known active allergiesdocumented as of this encounter (statuses as of 04/29/2023) Medications Medication Sig Dispensed Refills Start Date End Date Status Naproxen Sodium 220 MG Oral Capsule Take 1 Capsule by mouth as needed. 0 Active Aspirin 81 MG Tablet Take 1 Tablet by mouth in the morning. 0 Active Diclofenac Sodium 1 % External Gel (Voltaren) Apply topically to affected area 2 g in the morning AND 2 g before bedtime. Apply to bilateral knees. 100 g 3 05/07/2022 Active Furosemide 40 MG Oral Tablet (Lasix) Take by mouth 1 Tablet in the morning. 90 Tablet 3 05/20/2022 Active Allopurinol 100 MG Oral Tablet (Zyloprim)Indica tions:Gouty arthropathy Take 2 Tablets by mouth in the morning. 200 Tablet 3 04/01/2023 Active Lisinopril 10 MG Oral Tablet (Prinivil)Indica tions:Hypertensi ve kidney disease with stage 3a chronic kidney disease (HCC),HTN, goal below 140/90 Take 1 Tablet by mouth in the morning. 90 Tablet 3 04/29/2023 Active Potassium Chloride ER 10 MEQ Oral Capsule Extended ReleaseIndicatio ns:Hypertensive kidney disease with stage 3a chronic kidney disease (HCC),HTN, goal below 140/90 Take 1 Capsule by mouth in the morning. 90 Capsule 3 04/29/2023 Active Lisinopril 10 MG Oral Tablet (Prinivil)Indica tions:HTN, goal below 140/90 Take by mouth 1 Tablet in the morning. 90 Tablet 3 04/10/2022 04/29/20 23 Discontinued(Ref ill) Potassium Chloride ER 10 MEQ Oral Capsule Extended ReleaseIndicatio ns:HTN, goal below 140/90 Take by mouth 1 Capsule in the morning. 90 Capsule 3 04/10/2022 04/29/20 23 Discontinued(Ref ill) Sodium Hyaluronate 60 MG/3ML Intra-articular Prefilled Syringe (NOLA J&B) Inject 1 syringe into the joint of right knee once 3 mL 0 12/25/2022 04/29/20 23 Discontinued documented as of this encounter (statuses as of 04/29/2023) Active Problems Problem Noted Date Hypertensive kidney disease with stage 3 a chronic kidney disease 12/30/2022 Prediabetes 08/28/2022 Primary osteoarthritis of both knees 05/2022 Gouty arthropathy 03/22/2022 Chronic kidney disease, stage 3a 022 Overview: Per CKD protocol HTN, goal below [...] as of this encounter (statuses as of 04/29/2023) Resolved Problems Problem Noted Date Resolved Date Seborrheic dermatitis 09/30/2002 01/30/2022 Overview: ICD-10 update of inactive term Presbyacusis 01/30/2022 documented as of this encounter (statuses as of 04/29/2023) Immunizations Name Administration Dates Next Due COVID-19 mRNA, LNP-s, No Pre serve, 2-Dose Series (Moderna) 12/27/2020,11/29/2020 Covid-19 Mrna, Lnp-s, No Preserve, Booster (Mode rna) 10/10/2021 Pneumococcal Conjugate Vaccine, 20-valent (Prevn ar20) 12/30/2022 Seasonal Influenza Virus Vac cine, Unspecified Formulation 12/09/2015 Seasonal Influenza, Quadrivalent Hd (Fluzone Hd) 08/28/2022 TDAP (age 10 and older)(Boostrix) 03/12/2022 Zoster Vaccine Recombinant (Shingrix) 08/28/2022 ,03/12/2022 documented as of this encounter Social History Tobacco Use Types Packs/Day Years Used Date Smoking Tobacco: Never Passive Smoke Exposure: Past Smokeless Tobacco: Current Snuff Tobacco Cessation:Ready to Q uit: No; Counseling Given: Yes Comments:chew-one can a week Alcohol Use Standard Drinks/Week Comments Yes 0 (1 standard drink = 0.6 oz pur e alcohol) rarely Food Insecurity Answer Date Recorded Within the past 12 months, y ou worried that your food would run out before you got money to buy more. Never true 04/29/2023 Within the past 12 months, t he food you bought just didn't last and you didn't have money to get more. Never true 04/29/2023 Sex Assigned at Date Recorded Male 01/30/2022 7:58 AM E DT Job Start Date Occupation Industry Not on file Not on file Not on file documented as of this encounter Last Filed Vital Signs Vital Sign Reading Time Taken Comments Blood Pressure 136/80 04/29/2023 3:44 PM EDT Pulse 90 04/29/2023 3:44 PM EDT Temperature 36.7 C (98.1 F) 04/29/2023 3:44 PM ED T Respiratory Rate 14 04/29/2023 3:44 PM EDT Oxygen Saturation 96% 04/29/2023 3:44 PM EDT Inhaled Oxygen Concentration - - Weight 111.9 kg (246 lb 9.6 oz) 04/29/2023 3:44 PM EDT Height 175.3 cm (5' 9") 04/29/2023 3:44 PM EDT Body Mass Index 36.42 04/29/2023 3:44 PM EDT documented in this encounter Progress Notes * Jam Loo, DO - 04/29/2023 3:57 PM EDT SUBJECTIVE: Star Macario is a 88 year old male. Chief Complaint Patient presents with Follow Up HPI: Patient is an 88 year old male with a history of HTN, Hyperlipidemia, CKD stage III, Prediabetes, Gout, bilateral leg edema and right knee osteoarthritis that is seen for follow up. No chest pain or shortness of breath is present. Appetite is good and weight is stable. He continues to work 40 hoursa week. Right knee pain has not improved he is wearing a knee brace and walking with a cane. Patient Active Problem List Diagnosis Code Malignant neoplasm of skin C44.90 ADVANCE DIRECTIVE INFORMATION Sensorineural hearing loss, bilateral H90.3 Pulsatile tinnitus H93.A9 Degeneration of cervical intervertebral disc M50.30 Inguinal hernia, left K40.90 HTN, goal below 140/90 I10 Pure hypercholesterolemia E78.00 Chronic kidney disease, stage 3a (HCC) N18.31 Gouty arthropathy M10.9 Primary osteoarthritis of both knees M17.0 Prediabetes R73.03 Hypertensive kidney disease with stage 3a chronic kidney disease (HCC) I12.9, N18.31 Current Outpatient Medications Medication Sig Dispense Refill Naproxen Sodium 220 MG Oral Capsule Take 1 Capsule by mouth as needed. Aspirin 81 MG Tablet Take 1 Tablet by mouth in the morning. Diclofenac Sodium 1 % External Gel (Voltaren) Apply topically to affected area 2 g in the morning AND 2 g before bedtime. Apply to bilateral knees. 100 g 3 Furosemide 40 MG Oral Tablet (Lasix) Take by mouth 1 Tablet in the morning. 90 Tablet 3 Allopurinol 100 MG Oral Tablet (Zyloprim) Take 2 Tablets by mouth in the morning. 200 Tablet 3 Lisinopril 10 MG Oral Tablet (Prinivil) Take 1 Tablet by mouth in the morning. 90 Tablet 3 Potassium Chloride ER 10 MEQ Oral Capsule Extended Release Take 1 Capsule by mouth in the morning. 90 Capsule 3 No current facility-administered medications for this visit. The patient's medication list was reviewed and updated as needed. Past Medical History: Diagnosis Date Degeneration of cervical intervertebral disc 2005 Gouty arthropathy 03/22/2022 HTN, goal below 140/90 01/30/2022 Other malignant neoplasm of skin, site unspecified Squamous Cell Carcinoma of Skin Prediabetes 08/28/2022 Presbyacusis 2005 Primary osteoarthritis of both knees 04/26/2022 Pulsatile tinnitus 2005 Pure hypercholesterolemia 01/30/2022 Seborrheic dermatitis, unspecified Seborrheic Dermatitis Sensorineural hearing loss, bilateral 2005 Past Surgical History: Procedure Laterality Date REMOVAL OF APPENDIX age 12-14 REMOVAL OF KIDNEY STONE 2006 REMOVE CATARACT, INSERT LENS PROSTH Bilateral Dr. Nelson REPAIR INITIAL INGUINAL HERNIA REDUCIBLE AGE 6 OR MORE Repair initial hernia ,left inguinal hernia [facility] Dr Galindo 12/23/11 Review of patient's allergies indicates: No Known Allergies Review of Systems Constitutional: Negative for appetite change, fatigue and unexpected weight change. Respiratory: Negative for cough, shortness of breath and wheezing. Cardiovascular: Negative for chest pain, palpitations and leg swelling. Gastrointestinal: Negative for abdominal pain, blood in stool, constipation, diarrhea, nausea and vomiting. Genitourinary: Negative for dysuria and hematuria. Musculoskeletal: Positive for arthralgias and gait problem. Right knee pain has worsened Neurological: Negative for dizziness, syncope and headaches. Psychiatric/Behavioral: Negative for confusion, decreased concentration and sleep disturbance. OBJECTIVE: BP 136/80 | Pulse 90 | Temp 36.7 C (98.1 F) | Resp 14 | Ht 1.753 m (5' 9") | Wt 111.9 kg (246 lb 9.6 oz) | SpO2 96% | BMI 36.42 kg/m | BSA 2.33 m Physical Exam Vitals and nursing note reviewed. Constitutional: General: He is not in acute distress. Appearance: Normal appearance. He is not toxic-appearing. HENT: Head: Normocephalic and atraumatic. Cardiovascular: Rate and Rhythm: Normal rate and regular rhythm. Heart sounds: Normal heart sounds. No murmur heard. No gallop. Pulmonary: Effort: Pulmonary effort is normal. Breath sounds: Normal breath sounds. No wheezing, rhonchi or rales. Abdominal: General: Bowel sounds are normal. There is no distension. Palpations: Abdomen is soft. Tenderness: There is no abdominal tenderness. Musculoskeletal: Right lower leg: No edema. Left lower leg: No edema. Neurological: Mental Status: He is alert and oriented to person, place, and time. Mental status is at baseline. Motor: No weakness. Gait: Gait abnormal. Psychiatric: Mood and Affect: Mood normal. Behavior: Behavior normal. Thought Content: Thought content normal. Results for orders placed or performed in visit on 12/30/22 HEMOGLOBIN A1C Result Value Ref Range Hemoglobin A1C 6.3 (H) 4.0 - 5.6 % Estimated Average Glucose 134 (H) <126 mg/dL PLAN AND ASSESSMENT: Hypertensive kidney disease with stage 3a chronic kidney disease (HCC) (Primary) - Renew Lisinopril 10 MG Oral Tablet (Prinivil); Take 1 Tablet by mouth in the morning. - Renew Potassium Chloride ER 10 MEQ Oral Capsule Extended Release; Take 1 Capsule by mouth in the morning. - BASIC METABOLIC PANEL; Future; Expected date: 04/29/2023 - CBC WITH WBC DIFFERENTIAL; Future; Expected date: 04/29/2023 - PHOSPHORUS; Future; Expected date: 04/29/2023 Prediabetes - HEMOGLOBIN A1C; Future; Expected date: 04/29/2023 Primary osteoarthritis of both knees Continue to follow with orthopedics Gouty arthropathy Continue Allopurinol Sensorineural hearing loss, bilateral HTN, goal below 140/90 - Lisinopril 10 MG Oral Tablet (Prinivil); Take 1 Tablet by mouth in the morning. - Potassium Chloride ER 10 MEQ Oral Capsule Extended Release; Take 1 Capsule by mouth in the morning. Follow Up: Return in about 4 months (around 08/30/2023), or if symptoms worsen or fail to improve. Jam Loo DO 3:57 PM 04/29/2023 documented in this encounter Nursing Notes * Josiane Slater LPN - 04/29/2023 3:43 PM EDT Patient presents for follow up, voices no complaints. documented in this encounter Plan of Treatment Upcoming Encounters Date Type Specialty Care Team Description 09/01/2023 Office Visit Family Medicine Jam Loo, DO [address] [facility] [place] [address] Pending Results Name Type Priority Associated Diagnoses Date /Time BASIC METABOLIC PANEL Lab Routine Hypertensive kidney disease with stage 3a chronic kidney disease (HCC) 04/29/2023 4:02 PM EDT CBC WITH WBC DIFFERENTIAL Lab Routine Hypertensive kidney disease with stage 3a chronic kidney disease (HCC) 04/29/2023 4:02 PM EDT HEMOGLOBIN A1C Lab Routine Prediabetes 04/29/2023 4:02 PM EDT PHOSPHORUS Lab Routine Hypertensive kidney disease with stage 3a chronic kidney disease (HCC) 04/29/2023 4:02 PM EDT CBC Lab Routine Hypertensive kidney disease with stage 3a chronic kidney disease (HCC) 04/29/2023 4:02 PM EDT DIFFERENTIAL, AUTOMATED Lab Routine Hypertensive kidney disease with stage 3a chronic kidney disease (HCC) 04/29/2023 4:02 PM EDT Scheduled Orders Name Type Priority Associated Diagnoses Orde r Schedule BASIC METABOLIC PANEL Lab Routine Hypertensive kidney disease with stage 3a chronic kidney disease (HCC) Expected: 04/29/2023 (Approximate), Expires: 04/28/2024 CBC WITH WBC DIFFERENTIAL Lab Routine Hypertensive kidney disease with stage 3a chronic kidney disease (HCC) Expected: 04/29/2023 (Approximate), Expires: 04/29/2024 HEMOGLOBIN A1C Lab Routine Prediabetes Expected: 04/29/2023 (Approximate), Expires: 04/28/2024 PHOSPHORUS Lab Routine Hypertensive kidney disease with stage 3a chronic kidney disease (HCC) Expected: 04/29/2023 (Approximate), Expires: 04/28/2024 Health Maintenance Due Date Last Done Comments COVID-19 Vaccine (4 - Moderna series) 12/05/2021 10/10/2021, 12/27/2020, 11/29/2020 CKD HGB USE SMARTSET 90816 03/06/202303/06, 03/06/2022, 02/07/2022, Additional history exists CKD PHOS USE SMARTSET 32062 03/22/2023 03/22/2022 Influenza Vaccine (FLU shot) (#1) 2023 08/28/2022, 12/09/2015 Albumin/Creatinine Ratio 08/28/2023 08/28/2022 Depression Screening, Annual for Pts 12 and Over 12/31/2023 12/30/2022 HbA1c 12/31/2023 12/30/2022, 11/06/2022, 04/26/2022 DTaP,Tdap,and Td Vaccines (2 - Td or Tdap) 03/12/2032 03/12/2022 Zoster Vaccines Completed 08/28/2022, 03/12/2022 Pneumococcal Vaccine: 65+ Years Completed 12/30/2022 GARDASIL-HPV IMMUNIZATION SERIES Aged Out No longer [...] as of this encounter Visit Diagnoses Diagnosis Hypertensive kidney disease with stage 3a chronic kidney disease (HCC)- Primary Prediabetes Other abnormal glucose Primary osteoarthritis of both knees Primary localized osteoarthrosis, lower leg Gouty arthropathy Gouty arthropathy, unspecified Sensorineural hearing loss, bilateral HTN, goal below 140/90 Unspecified essential hypertension documented in this encounter Care Teams Shipping/Receiving Manager Relationship Specialty Start Date End Date Jam Loo, [address] [place] [address] PCP - General Internal Medicine 02/18/22 documented as of this encounter
--- OUTSIDE RECORDS SUMMARY | 2023-08-31 10:29 | External Medical Summary | Summary of Care ---
Author Name Unknown Organization [facility] Address [address] [place] [address] Phone [phone] Care Team Providers Care Control Systems Designer Name Role Phone Jam Loo DO Primary Care Provider [phone] Reason for Visit * Reason Onset Date Comments Medication Refill 04/01/2023 Encounter Details Date Type Department Care Team Description 04/01/2023 Refill Family Practice [address], [place] [address] [place] [address] Jam Loo DO [address] [place] [address] Gouty arthropathy Allergies No known active allergiesdocumented as of this encounter (statuses as of 04/01/2023) Medications Medication Sig Dispensed Refills Start Date End Date Status Naproxen Sodium 220 MG Oral Capsule Take 1 Capsule by mouth as needed. 0 Active Aspirin 81 MG Tablet Take 1 Tablet by mouth in the morning. 0 Active Lisinopril 10 MG Oral Tablet (Prinivil)Indicat ions:HTN, goal below 140/90 Take by mouth 1 Tablet in the morning. 90 Tablet 3 04/10/2022 Active Potassium Chloride ER 10 MEQ Oral Capsule Extended ReleaseIndication s:HTN, goal below 140/90 Take by mouth 1 Capsule in the morning. 90 Capsule 3 04/10/2022 Active Diclofenac Sodium 1 % External Gel (Voltaren) Apply topically to affected area 2 g in the morning AND 2 g before bedtime. Apply to bilateral knees. 100 g 3 05/07/2022 Active Furosemide 40 MG Oral Tablet (Lasix) Take by mouth 1 Tablet in the morning. 90 Tablet 3 05/20/2022 Active Sodium Hyaluronate 60 MG/3ML Intra-articular Prefilled Syringe (Durolane) Inject 1 syringe into the joint of right knee once 3 mL 0 12/25/2022 Active Allopurinol 100 MG Oral Tablet (Zyloprim)Indicat ions:Gouty arthropathy Take 2 Tablets by mouth in the morning. 200 Tablet 3 04/01/2023 Active Allopurinol 100 MG Oral Tablet (Zyloprim)Indicat ions:Gouty arthropathy Take 2 Tablets by mouth in the morning. 200 Tablet 3 03/31/2023 04/01/2023 Discontinue d(Refill) documented as of this encounter (statuses as of 04/01/2023) Active Problems Problem Noted Date Hypertensive kidney [...] as of this encounter (statuses as of 04/01/2023) Resolved Problems Problem Noted Date Resolved Date Seborrheic dermatitis 09/30/2002 01/30/2022 Overview: ICD-10 update of inactive term Presbyacusis 01/30/2022 documented as of this encounter (statuses as of 04/01/2023) Immunizations Name Administration Dates Next Due COVID-19 [...] Packs/Day Years Used Date Smoking Tobacco: Never Smokeless Tobacco: Current Snuff Comments:chew-one can a week Alcohol Use Standard Drinks/Week Comments Yes 0 (1 standard drink = 0.6 oz pur e alcohol) rarely Food Insecurity Answer Date Recorded Within the past 12 months, y ou worried that your food would run out before you got money to buy more. Never true 12/30/2022 Within the past 12 months, t he food you bought just didn't last and you didn't have money to get more. Never true 12/30/2022 Sex Assigned at Date Recorded Male 01/30/2022 7:58 AM E DT Job Start Date Occupation Industry Not on file Not on file Not on file documented as of this encounter Miscellaneous Notes * Telephone Encounter - Jam Loo DO - 04/01/2023 4:56 PM EDTSigned Prescriptions: Disp Refills Allopurinol 100 MG Oral Tablet (Zyloprim) 200 Ta*3 Sig: Take 2 Tablets by mouth in the morning.Authorizing Provider: JAM LOO * Telephone Encounter - Josiane Slater LPN - 04/01/2023 4:54 PM EDTPending Prescriptions: Disp Refills Allopurinol 100 MG Oral Tablet (Zyloprim) 200 Ta*3 Sig: Take 2 Tablets by mouth in the morning. * Telephone Encounter - Josiane Slater LPN - 04/01/2023 4:54 PM EDT Please sign * Telephone Encounter - JUDE Oliver - 04/01/2023 4:21 PM EDT Pharmacy say they do not have Pending Prescriptions: Disp Refills Allopurinol 100 MG Oral Tablet (Zyloprim) 200 Ta*3 Sig: Take 2 Tablets by mouth in the morning. Last Visit: 12/30/2022 (in office), Visit date not found (telemedicine) Next Visit: 04/29/2023 Last date the medication was ordered: Patient Active Problem List Diagnosis Code Malignant [...] 3a chronic kidney disease (HCC) I12.9, N18.31 Labs: Lab Results Component Value Date/Time CREATININE - [facility] 1.5 (H) 08/28/2022 09:04 AM CREATININE - [facility] 0.8 12/12/2011 10:35 AM CREATININE, RANDOM URINE - [facility] 22 08/28/2022 09:04 AM CREATININE-[facility] 1.49 (A) 03/19/2021 12:00 AM Lab Results Component Value Date/Time POTASSIUM - [facility] 4.8 08/28/2022 09:04 AM POTASSIUM - [facility] 4.4 12/12/2011 10:35 AM POTASSIUM-[facility] 4.3 03/19/2021 12:00 AM No results found for: TSH Lab Results Component Value Date/Time LDL (DIRECT MEASURE)-[facility] 113 11/23/2019 12:00 AM LDL CHOLESTEROL (CALCULATED) - [facility] 138 (H) 08/28/2022 09:04 AM Lab Results Component Value Date/Time ALT - [facility] 15 08/28/2022 09:04 AM ALT - [facility] 11 12/12/2011 10:35 AM Hemoglobin AIC Results: Lab Results Component Value Date/Time HEMOGLOBIN A1C - [facility] 6.3 (H) 12/30/2022 09:08 AM HEMOGLOBIN A1C - [facility] 6.0 (H) 08/28/2022 09:04 AM HEMOGLOBIN A1C - [facility] 6.6 (H) 04/26/2022 08:34 AM documented in this encounter Plan of Treatment Upcoming Encounters Date Type Specialty Care Team Description 04/29/2023 Office Visit Family Medicine Jam Loo, DO [address] [place] [address] Health Maintenance Due Date Last Done Comments COVID-19 Vaccine (4 - Moderna series) 12/05/2021 10/10/2021, 12/27/2020, 11/29/2020 CKD HGB USE SMARTSET 50769 03/06/202303/06, 03/06/2022, 02/07/2022, Additional history exists CKD PHOS USE SMARTSET 19878 03/22/2023 03/22/2022 Albumin/Creatinine Ratio 08/28/2023 08/28/2022 Depression Screening, Annual for Pts 12 and Over 12/31/2023 12/30/2022 HbA1c 12/31/2023 12/30/2022, 11/0 06/2022, 04/26/2022 DTaP,Tdap,and Td Vaccines (2 - Td or Tdap) 03/12/2032 03/12/2022 Influenza Vaccine (FLU shot) Completed 08/28/2022, 12/09/2015 Zoster Vaccines Completed 08/28/2022, 03/12/2022 Pneumococcal Vaccine: [...] as of this encounter Visit Diagnoses Diagnosis Gouty arthropathy Gouty arthropathy, unspecified documented in this encounter Care Teams Control Systems Designer Relationship Specialty Start Date End Date Jam Loo, DO [address] [place] [address] PCP - General Internal Medicine 02/18/22 documented as of this encounter
--- OUTSIDE RECORDS SUMMARY | 2023-08-31 10:29 | External Medical Summary | Summary of Care ---
Author Name Unknown Organization [facility] Address [address] [place] [address] Phone [phone] Care Team Providers Care Cattle Manager Name Role Phone Jam Loo DO Primary Care Provider [phone] Reason for Visit * Reason Comments eRx-Medication Refill Encounter Details Date Type Department Care Team Description 03/31/2023 Refill Family Practice [address] [place] [address] [place] [address] Jam Loo DO [address] [place] [address] Gouty arthropathy Allergies No known active allergiesdocumented as of this encounter (statuses as of 04/01/2023) Medications Medication Sig Dispensed Refills Start Date End Date Status Naproxen Sodium 220 MG Oral Capsule Take 1 Capsule by mouth as needed. 0 Active Aspirin 81 MG Tablet Take 1 Tablet by mouth in the morning. 0 Active Lisinopril 10 MG Oral Tablet (Prinivil)Indication s:HTN, goal below 140/90 Take by mouth 1 Tablet in the morning. 90 Tablet 3 04/10/2022 Active Potassium Chloride ER 10 MEQ Oral Capsule Extended ReleaseIndications:H TN, goal below 140/90 Take by mouth 1 [...] 12/25/2022 Active Allopurinol 100 MG Oral Tablet (Zyloprim)Indication s:Gouty arthropathy Take 2 Tablets by mouth in the morning. 200 Tablet 3 03/31/2023 Active documented as of this encounter (statuses [...] encounter Miscellaneous Notes * Telephone Encounter - Tutu Coronado RPh - 04/01/2023 3:59 PM EDTRefused Prescriptions: Disp Refills Allopurinol 100 MG Oral Tablet (Zyloprim) 80 Tab*0 Sig: TAKE 2 TABLETS BY MOUTH IN THE MORNINGRefused By: TUTU CORONADO for Refusal: Duplicate Request---- documented in this encounter Plan of Treatment Upcoming Encounters Date Type Specialty Care Team Description 04/29/2023 Office Visit Family Medicine Jam Loo, DO [address] [facility] [place] [address] Health Maintenance Due Date Last Done Comments COVID-19 Vaccine (4 - Moderna series) 12/05/2021 10/10/2021, 12/27/2020, 11/29/2020 CKD HGB USE SMARTSET 08321 03/06/202303/06, 03/06/2022, 02/07/2022, Additional history exists CKD PHOS USE SMARTSET 36197 03/22/2023 03/22/2022 Albumin/Creatinine Ratio 08/28/2023 08/28/2022 Depression [...] unspecified documented in this encounter Care Teams Cattle Manager Relationship Specialty Start Date End Date Jam Loo, DO [address] [place] [address] PCP - General Internal Medicine 02/18/22 documented as of this encounter
--- OUTSIDE RECORDS SUMMARY | 2023-08-31 10:29 | External Medical Summary | Summary of Care ---
Author Name Unknown Organization [facility] Address [address] [place] [address] Phone [phone] Care Team Providers Care Rivet Tosser Name Role Phone Jam Loo DO Primary Care Provider Encounter Details Date Type Department Care Team Description 04/29/2023 Refill Family Practice [address], [place] [address] [place] [address] Jam Loo DO [address] [place] [address] HTN, goal below 140/90 Allergies No known [...] 05/20/2022 Active Allopurinol 100 MG Oral Tablet (Zyloprim)Indication [...] the morning. 90 Capsule 3 04/29/2023 Active documented as of this encounter (statuses [...] Miscellaneous Notes * Telephone Encounter - Verenice Stephens, JUDE - 04/29/2023 3:23 PM EDT Pending Prescriptions: Disp Refills Potassium Chloride ER 10 MEQ Oral Capsule*90 Cap*3 Sig: Take 1 Capsule by mouth in the morning. Lisinopril 10 MG Oral Tablet (Prinivil) 90 Tab*3 Sig: Take 1 Tablet by mouth in the morning. Last Visit: 12/30/2022 (in office), Visit date not found (telemedicine) Next Visit: 04/29/2023 Last date the medication was ordered: 04.10.23 Patient Active Problem List Diagnosis Code Malignant [...] Visit Family Medicine Jam Loo, DO [address] [place] [address] Health Maintenance Due Date Last Done Comments COVID-19 Vaccine (4 - Moderna series) 12/05/2021 10/10/2021, 12/27/2020, 11/29/2020 CKD HGB USE SMARTSET 01220 03/06/202303/06, 03/06/2022, 02/07/2022, Additional history exists CKD PHOS USE SMARTSET 23116 03/22/2023 03/22/2022 Influenza Vaccine (FLU shot) (#1) [...] as of this encounter Visit Diagnoses Diagnosis HTN, goal below 140/90 Unspecified essential hypertension documented in this encounter Care Teams Rivet Tosser Relationship Specialty Start Date End Date Jam Loo, DO [address] [place] [address] PCP - General Internal Medicine 02/18/22 documented as of this encounter
--- OUTSIDE RECORDS SUMMARY | 2023-08-31 10:29 | External Medical Summary | Summary of Care ---
Author Name Unknown Organization [facility] Address [address] [place] [address] Phone [phone] Care Team Providers Care Poiser Balance Name Role Phone Moriah Loo DO Primary Care Provider [phone] Reason for Visit * Reason Comments eRx-Medication Refill Encounter Details Date Type Department Care Team Description 06/16/2023 Refill Family Practice [address], [place] [address] [place] [address] Moriah Loo DO [address] [place] [address] Allergies No known active allergiesdocumented as of this encounter (statuses as of 06/17/2023) Medications Medication Sig Dispensed Refills Start Date [...] 05/07/2022 Active Allopurinol 100 MG Oral Tablet (Zyloprim)Indicat ions:Gouty arthropathy Take 2 Tablets by mouth in the morning. 200 Tablet 3 04/01/2023 Active Lisinopril 10 MG Oral Tablet (Prinivil)Indicat ions:Hypertensive kidney disease with stage 3a chronic kidney disease (HCC),HTN, goal below 140/90 Take 1 Tablet by mouth in the morning. 90 Tablet 3 04/29/2023 Active Potassium Chloride ER 10 MEQ Oral Capsule Extended ReleaseIndication s:Hypertensive kidney disease with stage 3a chronic kidney disease (HCC),HTN, goal below 140/90 Take 1 Capsule by mouth in the morning. 90 Capsule 3 04/29/2023 Active Furosemide 40 MG Oral Tablet (Lasix) TAKE 1 TABLET BY MOUTH IN THE MORNING 90 Tablet 1 06/17/2023 Active Furosemide 40 MG Oral Tablet (Lasix) Take by mouth 1 Tablet in the morning. 90 Tablet 3 05/20/2022 3 Discontinued documented as of this encounter (statuses as of 06/17/2023) Active Problems Problem Noted Date Hypertensive kidney [...] as of this encounter (statuses as of 06/17/2023) Resolved Problems Problem Noted Date Resolved Date Seborrheic dermatitis 09/30/2002 01/30/2022 Overview: ICD-10 update of inactive term Presbyacusis 01/30/2022 documented as of this encounter (statuses as of 06/17/2023) Immunizations Name Administration Dates Next Due COVID-19 [...] encounter Miscellaneous Notes * Telephone Encounter - Gillian Ferreira RPh - 06/17/2023 1:43 PM EDTSigned Prescriptions: Disp Refills Furosemide 40 MG Oral Tablet (Lasix) 90 Tab*1 Sig: TAKE 1 TABLET BY MOUTH IN THE MORNINGAuthorizing Provider: MORIAH LOO AOrdering User: GILLIAN FERREIRA------ documented in this encounter Plan of Treatment Upcoming Encounters Date Type Specialty Care Team Description 09/01/2023 Office Visit Family Medicine Moriah Loo, DO [address] [place] [address] Health Maintenance Due Date Last Done Comments COVID-19 Vaccine (4 - Moderna series) 12/05/2021 10/10/2021, 12/27/2020, 11/29/2020 Influenza Vaccine (FLU shot) (#1) 2023 08/28/2022, 12/09/2015 Albumin/Creatinine Ratio 08/28/2023 08/28/2022 CKD HGB USE SMARTSET 41077 04/29/202404/29, 04/29/2023, 03/06/2022, Additional history exists CKD PHOS USE SMARTSET 88866 04/29/2024 04/29/2023, 0 03/22/2022 Depression Screening, Annual for Pts 12 and Over 04/29/2024 04/29/2023 HbA1c 04/29/2024 04/29/2023, 12/18, 08/28/2022, [...] Not on filedocumented as of this encounter Care Teams Poiser Balance Relationship Specialty Start Date End Date Moriah Loo, [address] [place] [address] PCP - General Internal Medicine 02/18/22 documented as of this encounter
--- OUTSIDE RECORDS SUMMARY | 2023-08-31 10:29 | External Medical Summary ---
Author Name Unknown Address Unknown Organization K01:[facility] - [address] [place] [address] Laboratory Report Ordering Provider Test Date Status YONY MAJOR 04/29/2023 16:02:03 Final Observation Date Value Abnormality Reference (Units ) Status Phosphate 04/29/2023 16:02:03 2.6 2.5-4.8 (m g/dL) Final Performing Location [facility] - [address] [place] [address]
--- OUTSIDE RECORDS SUMMARY | 2023-08-31 10:29 | External Medical Summary ---
Author Name Unknown Address Unknown Organization K01:[facility] [place] - [address] [place] [address] Laboratory Report Ordering Provider Test Date Status YONY MAJOR 04/29/2023 16:02:03 Final Observation Date Value Abnormality Reference (Units ) Status BUN 04/29/2023 16:02:03 31 Above high normal 6-20 (mg/dL) Final Creatinine 04/29/2023 16:02:03 1.4 Above high normal 0.6-1.2 (mg/dL) Final Glomerular filtration rate/1.73 sq M.predicted [Volume Rate/Area] in Serum, Plasma or Blood by Creatinine-based formula (CKD-EPI) 04/29/2023 16:02:03 50 Below low normal >=60 (mL/min) Final eGFR is calculated based on the CKD-EPI 2020 equation SODIUM 04/29/2023 16:02:03 141 135-146 (m mol/L) Final Potassium 04/29/2023 16:02:03 4.8 3.5-5.1 (m mol/L) Final Cl 04/29/2023 16:02:03 103 98-107 (mm ol/L) Final CO2 04/29/2023 16:02:03 27 22-32 (mmo l/L) Final Anion gap 04/29/2023 16:02:03 11 7-15 (mmol /L) Final Glucose 04/29/2023 16:02:03 85 70-120 (mg /dL) Final Calcium 04/29/2023 16:02:03 9.7 8.4-10.2 ( mg/dL) Final Performing Location [facility] - [address] [place] [address]
--- OUTSIDE RECORDS SUMMARY | 2023-08-31 10:29 | External Medical Summary | Summary of Care ---
Author Name Unknown Organization [facility] Address [address] [place] [address] Phone [phone] Care Team Providers Care Biodiesel Processing Technician Name Role Phone Jam Loo DO Primary Care Provider Reason for Visit * Reason Comments Dosage Adjustment In Person (Anticoag Cl inic) Encounter Details Date Type Department Care Team Description 08/04/2023 Office Visit Family Practice [address] [address] [place], Pharmacist [address] [address] Encounter for pharmacogenetic testing* Allergies No known active allergiesdocumented as of this encounter (statuses as of 08/04/2023) Medications Medication Sig Dispensed Refills Start Date [...] as of this encounter (statuses as of 08/04/2023) Active Problems Problem Noted Date Hypertensive kidney [...] as of this encounter (statuses as of 08/04/2023) Resolved Problems Problem Noted Date Resolved Date Seborrheic dermatitis 09/30/2002 01/30/2022 Overview: ICD-10 update of inactive term Presbyacusis 01/30/2022 documented as of this encounter (statuses as of 08/04/2023) Immunizations Name Administration Dates Next Due COVID-19 [...] on file documented as of this encounter Progress Notes * Carrol Irvin RPh - 08/04/2023 2:07 PM EDT Medication Therapy [facility] - 65 Pharmacogenomics Project 2022 Star Macario is an 88 year old being seen to discuss enrollment in the 65 pharmacogenomics project. Control: If Jaye offered a pharmacogenomics test at no cost in the future, would you be interested? No Carrol Campbell RPh Clinical Pharmacist - Drywall Hanger Helper Medication [facility] 08/04/2023, 2:07 PM documented in this encounter Plan of Treatment Upcoming Encounters Date Type Specialty Care Team Description 08/06/2023 Cardiac Studies Cardiac Studies 08/07/2023 Office Visit Cardiology Bello Springer, [address] [place] [address] 09/01/2023 Office Visit Family Medicine Jam oLo DO [address] [facility] [address] Health Maintenance Due Date Last Done Comments COVID-19 Vaccine ( season) 2023 10/10/2021, 12/27/2020, 11/29/2020 Albumin/Creatinine Ratio 08/28/2023 08/28/2022 CKD HGB USE SMARTSET 90853 04/29/202404/29, 04/29/2023, 03/06/2022, Additional history exists CKD PHOS USE SMARTSET 09664 04/29/2024 04/29/2023, 0 03/22/2022 Depression Screening 04/29/2024 [...] as of this encounter Visit Diagnoses Diagnosis Encounter for pharmacogenetic testing- Primary documented in this encounter Care Teams Biodiesel Processing Technician Relationship Specialty Start Date End Date Jam Loo DO [address] [place] [address] PCP - General Internal Medicine 02/18/22 documented as of this encounter
--- OUTSIDE RECORDS SUMMARY | 2023-08-31 10:29 | External Medical Summary | Summary of Care ---
Author Name Unknown Organization [facility] Address [address] [place] [address] Phone [phone] Care Team Providers Care Supervisor Insulation Name Role Phone Jam Loo DO Primary Care Provider [phone] Reason for Referral * Evaluate & Treat - Unlimited Visits (Within 10 days (routine)) - Authorized Specialty Diagnoses / Procedures Referred By Contact Referred To Contact Cardiovascular Medicine / Cardiology Diagnoses Preoperative general physical examination Cardiomegaly Jam Loo DO [address] [place] [address] Referral ID Status Reason Start Date Expiration Date Visits Requested Visits Authorized [id number] Authorized Specialty Services Required 3 999 999 Question Answer Referral Priority Within 10 days (routine) Where should this appointment be scheduled? [facility] To which of the following clinics are you referring your patient? General Cardiology Clinic * Precert (Within 10 days (routine)) - Authorized Specialty Diagnoses / Procedures Referred By Contac t Referred To Contact Cardiac Studies Diagnoses Hypertensive kidney disease with stage 3a chronic kidney disease (HCC) Cardiomegaly Procedures ECHO, COMPLETE (2D), TRANS-THORACIC Jam Loo DO [address] [place] [address] Referral ID Status Reason Start Date Expiration Date V isits Requested Visits Authorized [id number] Authorized Precert 08/04/2023 999 999 Reason for Visit * Reason Onset Date Comments Medication Administration 08/04/2023 Flu an d/or Pneumo Inj Encounter Details Date Type Department Care Team Description 08/04/2023 Office Visit Family Practice [address], [place] [address] [place] [id number] Jam Loo, DO [address] [place] [address] Preoperative general physical examination*; Hypertensive kidney disease with stage 3a chronic kidney disease (HCC); Pure hypercholesterolemia; Gouty arthropathy; Primary osteoarthritis of both knees; Prediabetes; Sensorineural hearing loss, bilateral; Degeneration of cervical intervertebral disc; Need for prophylactic vaccination and inoculation against influenza; Cardiomegaly Allergies No known active allergiesdocumented as of this encounter (statuses as of 08/08/2023) Medications Medication Sig Dispensed Refills Start Date [...] 08/04/2023 Active Furosemide 40 MG Oral Tablet (Lasix)Indication s:Hypertensive kidney disease with stage 3a chronic kidney disease (HCC) Take 1 Tablet by mouth in the morning. 90 Tablet 1 08/04/2023 Active Naproxen Sodium 220 MG Oral Capsule Take 1 Capsule by mouth as needed. 0 08/04/2023 Discontinue d(Medicatio n List Clean Up) Furosemide 40 MG Oral Tablet (Lasix) TAKE 1 TABLET BY MOUTH IN THE MORNING 90 Tablet 1 06/17/2023 08/04/2023 Discontinue d(Refill) documented as of this encounter (statuses as of 08/08/2023) Active Problems Problem Noted Date Aneurysm of ascending aorta without rupt ure 08/08/2023 Hypertensive kidney disease with stage 3 a [...] as of this encounter (statuses as of 08/08/2023) Resolved Problems Problem Noted Date Resolved Date Seborrheic dermatitis 09/30/2002 01/30/2022 Overview: ICD-10 update of inactive term Presbyacusis 01/30/2022 documented as of this encounter (statuses as of 08/08/2023) Immunizations Name Administration Dates Next Due COVID-19 [...] on file documented as of this encounter Patient Instructions * Patient Instructions* Carrol Irvin RPh - 08/04/2023 1:24 PM EDT ~~PATIENT INSTRUCTIONS FOR FLU SHOT~~ Possible side effects of influenza vaccine, (flu shot), are usually mild and include: 1. Soreness or redness at injection site 2. Low grade fever 3. Body aches You may use Tylenol/Acetaminophen as needed for these symptoms. LET YOUR DOCTOR KNOW IMMEDIATELY IF YOU HAVE DIFFICULTY BREATHING OR SWALLOWING, EXPERIENCE ITCHINGOF FEET OR HANDS, HAVE SWELLING OF EYES, FACE OR INSIDE OF NOSE. documented in this encounter Progress Notes * Jam Loo DO - 08/04/2023 2:42 PM EDT SUBJECTIVE: Star Macario is a 88 year old male. Chief Complaint Patient presents with Medication Administration Flu and/or Pneumo Inj HPI: Patient is an 88 year old male with history of HTN, Hyperlipidemia, CKD Stage III, Prediabetes, Gout, bilateral leg edema that is seen for worsening right knee pain. He is scheduled for right TKA. 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 No chest pain is present. Chronic shortness of breath with exertion is stable. Weight is down and appetite is fair. Cardiomegaly present on CXR. Patient Active Problem List Diagnosis Code Malignant [...] Current Outpatient Medications Medication Sig Dispense Refill Aspirin 81 MG Tablet Take 1 Tablet by mouth in the morning. Diclofenac Sodium 1 % External Gel (Voltaren) Apply topically to affected area 2 g in the morning AND 2 g before bedtime. Apply to bilateral knees. 100 g 3 Allopurinol 100 MG Oral Tablet (Zyloprim) Take 2 Tablets by mouth in the morning. 200 Tablet 3 Lisinopril 10 MG Oral Tablet (Prinivil) Take 1 Tablet by mouth in the morning. 90 Tablet 3 Potassium Chloride ER 10 MEQ Oral Capsule Extended Release Take 1 Capsule by mouth in the morning. 90 Capsule 3 Acetaminophen 500 MG Oral Tablet (Tylenol) Take 2 Tablets by mouth every 6 hours as needed for Pain, Moderate. Furosemide 40 MG Oral Tablet (Lasix) Take 1 Tablet by mouth in the morning. 90 Tablet 1 No current facility-administered medications for this visit. The patient's medication list was reviewed and updated as needed. Past Medical History: Diagnosis Date Degeneration of cervical intervertebral disc 2006 Gouty arthropathy 03/22/2022 HTN, goal below 140/90 [...] change, fatigue and unexpected weight change. Respiratory: Positive for shortness of breath. Negative for cough and wheezing. Cardiovascular: Negative for chest pain, palpitations and leg swelling. Gastrointestinal: Negative for abdominal pain, blood in stool, constipation, diarrhea, nausea and vomiting. Genitourinary: Negative for dysuria and hematuria. Musculoskeletal: Right knee pain continues to worsen Neurological: Negative for dizziness, syncope and headaches. Psychiatric/Behavioral: Negative for confusion, decreased concentration and sleep disturbance. OBJECTIVE: There were no vitals taken for this visit. Physical Exam Vitals and nursing note reviewed. Constitutional: General: He is not in acute distress. Appearance: Normal appearance. He is not toxic-appearing. HENT: Head: Normocephalic and atraumatic. Cardiovascular: Rate and Rhythm: Normal rate and regular rhythm. Heart sounds: Murmur heard. Systolic murmur is present with a grade of 2/6. Pulmonary: Breath sounds: Normal breath sounds. No wheezing, [...] Behavior normal. Thought Content: Thought content normal. Judgment: Judgment normal. Preoperative labs, CXR and ECG done at [facility] on 07/25/2023: BMP, CBC with diff, PT, PTT, and UA are within acceptable range. CXR report reviewed : Cardiomegaly with no active disease in chest ECG: Sinus bradycardia with ist degree AVB. ECHO: 08/06/2023 at [facility] Interpretation Summary The qualitative LV ejection fraction is 55-59% (normal). The LV wall thickness is mildly increased (concentric). The left atrium is mildly enlarged (35-41 ml/m^2). The left ventricular diastolic function is mildly abnormal (grade I). The aortic valve is moderately calcified. There is aortic valve sclerosis without stenosis. Mild aortic valve regurgitation is present. Mild mitral regurgitation is present. Mild tricuspid regurgitation is present. There is no evidence of pulmonary hypertension. The aortic root is mildly enlarged, 4.3 cm. The ascending aorta is mildly enlarged, 4.4 cm. Component Latest Ref Rng 04/29/2023 Hemoglobin A1C 4.0 - 5.6 % 6.2 (H) Estimated Average Glucose <126 mg/dL 131 (H) (H) High PLAN AND ASSESSMENT: Preoperative general physical examination (Primary) - CARDIOLOGY REFERRAL OP Patient is stable for Knee Replacement No further testing needed prior to surgery Hypertensive kidney disease with stage 3a chronic kidney disease (HCC) - Renew Furosemide 40 MG Oral Tablet (Lasix); Take 1 Tablet by mouth in the morning. Continue Lisinopril - ECHO, COMPLETE (2D), TRANS-THORACIC; Future; Expected date: 08/04/2023 Pure hypercholesterolemia Gouty arthropathy Continue Allopurinol Primary osteoarthritis of both knees Prediabetes Last HGBA1c in 6.2 Sensorineural hearing loss, bilateral Degeneration of cervical intervertebral disc Need for prophylactic vaccination and inoculation against influenza - INFLUENZA VACC, QUAD, HIGH DOSE (FLUZONE HD) Cardiomegaly - ECHO, COMPLETE (2D), TRANS-THORACIC; Future; Expected date: 08/04/2023 - CARDIOLOGY REFERRAL OP Follow-up: Return if symptoms worsen or fail to improve. | Check-out note: Schedule Echo / Preop Jam Loo DO 2:42 PM 08/04/2023 * Carrol Irvin, [facility] - 08/04/2023 1:20 PM EDT PRE - ADMINISTRATION DOCUMENTATION Are you experiencing any cold symptoms or fever? No Have you had Guillain-Belleville Syndrome (an illness that causes paralysis) within the last 6 weeks? No Have you had the flu shot in the past? YES Have you ever had a reaction to the flu shot? No Carrol Campbell [facility], 08/04/2023 1:24 PM Immunization Administration Documentation Time Out Procedure Performed: Yes Patient Identified (Ask Name/Date of ): Yes Does the patient have a fever greater than 101 degrees today? No Patient allergic to latex? No VFC Stock: No Immunization(s) verified: Yes, Immunization Name: Flu, VIS Sheet(s) given: Yes Verified Side and Site: Yes Verified Shot(s) with Parent(s)/Patient: Yes documented in this encounter Plan of Treatment Upcoming Encounters Date Type Specialty Care Team Description 09/01/2023 Office Visit Family Medicine Jam Loo, [address] [place] [address] Scheduled Referrals Name Type Priority Associated Diagnoses Orde r Schedule CARDIOLOGY REFERRAL OP Referral Within 10 days (routine) Preoperative general physical examination Cardiomegaly Ordered: 08/04/2023 Health Maintenance Due Date Last Done Comments COVID-19 Vaccine ( season) 2023 10/10/2021, 12/27/2020, 11/29/2020 Albumin/Creatinine Ratio 08/28/2023 08/28/2022 CKD HGB USE SMARTSET 62112 04/29/202404/29, 04/29/2023, 03/06/2022, Additional history exists CKD PHOS USE SMARTSET 81679 04/29/2024 04/29/2023, 0 03/22/2022 Depression Screening 04/29/2024 [...] Not on filedocumented as of this encounter Results * ECHO, COMPLETE (2D), TRANS-THORACIC (08/06/2023 9:31 AM EDT) LEFT VENTRICULAR EJECTION FRACTION 55 % [facility] 08/06/2023 8:53 AM EDT Jam Loo DO [facility] documented in this encounter Visit Diagnoses Diagnosis Preoperative general physical examination- Primary Other specified pre-operative examination Hypertensive kidney disease with stage 3a chronic kidney disease (HCC) Pure hypercholesterolemia Gouty arthropathy Gouty arthropathy, unspecified Primary osteoarthritis of both knees Primary localized osteoarthrosis, lower leg Prediabetes Other abnormal glucose Sensorineural hearing loss, bilateral Degeneration of cervical intervertebral disc Need for prophylactic vaccination and inoculation against influenza Cardiomegaly documented in this encounter Care Teams Supervisor Insulation Relationship Specialty Start Date End Date Jam Loo DO [address] [place] [address] PCP - General Internal Medicine 02/18/22 documented as of this encounter"
--- OUTSIDE RECORDS SUMMARY | 2023-08-31 10:29 | External Medical Summary | Summary of Care ---
Author Name Unknown Organization [facility] Address [address] [place] [address] Phone [phone] Care Team Providers Care Senior Devops Engineer Name Role Phone Jam Loo DO Primary Care Provider [phone] Encounter Details Date Type Department Care Team Description 03/31/2023 Refill Family Practice [address], [place] [address] [place] [address] Jam Loo DO [address] [place] [address] Gouty arthropathy Allergies No known active allergiesdocumented as of this encounter (statuses as of 03/31/2023) Medications Medication Sig Dispensed Refills Start Date [...] the morning. 200 Tablet 3 03/31/2023 Active Allopurinol 100 MG Oral Tablet (Zyloprim)Indicat ions:Gouty arthropathy Take by mouth 2 Tablets in the morning. 200 Tablet 3 03/12/2022 03/31/2023 Discontinue d(Refill) documented as of this encounter (statuses as of 03/31/2023) Active Problems Problem Noted Date Hypertensive kidney [...] as of this encounter (statuses as of 03/31/2023) Resolved Problems Problem Noted Date Resolved Date Seborrheic dermatitis 09/30/2002 01/30/2022 Overview: ICD-10 update of inactive term Presbyacusis 01/30/2022 documented as of this encounter (statuses as of 03/31/2023) Immunizations Name Administration Dates Next Due COVID-19 [...] Telephone Encounter - Jam Loo DO - 03/31/2023 7:46 PM EDTSigned Prescriptions: Disp Refills Allopurinol 100 MG Oral Tablet (Zyloprim) 200 Ta*3 Sig: Take 2 Tablets by mouth in the morning.Authorizing Provider: JAM LOO * Telephone Encounter - Josiane Slater LPN - 03/31/2023 4:39 PM EDTPending Prescriptions: Disp Refills Allopurinol 100 MG Oral Tablet (Zyloprim) 200 Ta*3 Sig: Take 2 Tablets by mouth in the morning. * Telephone Encounter - Verenice Stephens, JUDE - 03/31/2023 3:40 PM EDT Pending Prescriptions: Disp Refills Allopurinol 100 MG Oral Tablet (Zyloprim) 200 Ta*3 Sig: Take 2 Tablets by mouth in the morning. Last Visit: 12/30/2022 (in office), Visit date not found (telemedicine) Next Visit: 04/29/2023 Last date the medication was ordered: 03/12/2022 Patient Active Problem List Diagnosis Code Malignant [...] Visit Family Medicine Jam Loo, DO [address] [place] [address] Health Maintenance Due Date Last Done Comments COVID-19 Vaccine (4 - Moderna series) 12/05/2021 10/10/2021, 12/27/2020, 11/29/2020 CKD HGB USE SMARTSET 24892 03/06/202303/06, 03/06/2022, 02/07/2022, Additional history exists CKD PHOS USE SMARTSET 23694 03/22/2023 03/22/2022 Albumin/Creatinine Ratio 08/28/2023 08/28/2022 Depression [...] unspecified documented in this encounter Care Teams Senior Devops Engineer Relationship Specialty Start Date End Date Jam Loo, DO [address] [place] [address] PCP - General Internal Medicine 02/18/22 documented as of this encounter
--- OUTSIDE RECORDS SUMMARY | 2023-08-31 10:29 | External Medical Summary ---
Author Name Unknown Address Unknown Organization K01:LABORATORY [facility] [place] - [address] [address] Laboratory Report Ordering Provider Test Date Status YONY MAJOR 04/29/2023 16:02:03 Final Observation Date Value Abnormality Reference (Units ) Status WBC, Total 04/29/2023 16:02:03 5.85 4.00-10.80 (K/uL) Final RBC 04/29/2023 16:02:03 4.71 4.50-5.25 (M/uL) Final Hemoglobin 04/29/2023 16:02:03 14.7 14.0-16.8 (g/dL) Final HCT 04/29/2023 16:02:03 45.8 40.0-48.4 (%) Final MCV 04/29/2023 16:02:03 97.2 82.0-99.5 (fL) Final MCH 04/29/2023 16:02:03 31.2 27.0-34.0 (pg) Final MCHC 04/29/2023 16:02:03 32.1 32.0-36.0 (g/dL) Final RDW 04/29/2023 16:02:03 13.0 11.5-15.5 (%) Final Platelets 04/29/2023 16:02:03 226 140-400 (K/uL) Final MPV 04/29/2023 16:02:03 11.7 6.6-11.1 (fL) Final Nucleated erythrocytes/100 leukocytes [Ratio] in Blood by Automated count 04/29/2023 16:02:03 0 <=0 (/100 WBCs) Final Performing Location LABORATORY [facility] - [address] [address]
--- OUTSIDE RECORDS SUMMARY | 2023-08-31 10:29 | External Medical Summary | Summary of Care ---
Author Name Unknown Organization [facility] Address [address] [place] [address] Phone [phone] Care Team Providers Care Merchandise Handler Name Role Phone Jam Loo DO Primary Care Provider [phone] Reason for Visit * Reason Comments Dosage Adjustment In Person (Anticoag Cl inic) Medication Management Encounter Details Date Type Department Care Team Description 08/04/2023 Pharmacy Family Practice [address] [facility] [address] [place] [address] Prado Verde, Pharmacist [address] [address] Encounter for long-term (current) use of medications* Allergies No known active allergiesdocumented as of [...] at Date Recorded Male 01/30/2022 7:58 AM EDT Job Start Date Occupation Industry Not on file Not on file Not on file documented as of this encounter Progress Notes * Carrol Irvni, [facility] - 08/04/2023 2:08 PM EDT Medication Therapy [facility] - Medication Reconciliation Star Macario is an 88 year old being seen for medication reconciliation. Prescription insurance information: YASMIN Silveira Do you have any other prescription coverage: No - pt unsure of income documents. Asked that I call his . Preferred pharmacy: [facility] [x] Problem list reviewed [x] Allergies reviewed and updated if needed [x] Drug interaction check completed [x] HEDIS list addressed Immunizations: Facilitated Administration Of: Influenza Medication Organization/Adherence: Has home care nurse or caregiver: no Patient uses a pill box? Yes, refill(s) completed by spouse When you are at home, how often do you miss doses of medications? Less than once a week How difficult is it for you to pay for your medications? Not difficult at all How often do you experience side effects from your medications? Less than once a week Labs/Vitals/Risk Scores: The ASCVD Risk score (Polo DK, et al., 2019) failed to calculate for the following reasons: The 2019 ASCVD risk score is only valid for ages 40 to 79 BP Readings from Last 3 Encounters: 04/29/23 136/80 12/30/22 140/76 08/28/22 128/64 Recent Labs Units 04/29/23 1602 12/30/22 0908 08/28/22 0904 HEMOGLOBIN A1C - MARYER % 6.2* 6.3* 6.0* Recent Labs Units 04/29/23 1602 08/28/22 0904 02/07/22 1441 ESTIMATED GLOMERULAR FILTRATION RATE - [facility] mL/min 50* 45* 50* Serum creatinine: 1.4 mg/dL (H) 04/29/23 1602 Estimated creatinine clearance: 45.8 mL/min (A) Assessment & Plan: Medication discrepancies identified: no longer taking Aleve. Now taking tylenol instead but doesn'tknow strength. Dose/frequency of medications appropriate for current renal function? yes Other medication problems identified: none Patient education provided: regarding pace Referral pended for follow up management of: N/A Summary- Changes & Recommendations: Med rec completed with patient. He isn't sure of his meds - fills his pill box. Called his and she reports they should by eligible for PACE. Mailed PACE application to them. Repeat med rec visit in 1 year Carrol Campbell RPh Clinical Pharmacist - Chief Orthoptist Medication Therapy Management [facility] 08/04/2023, 2:10 PM documented in this encounter Plan of Treatment Upcoming Encounters Date Type Specialty Care Team Description 08/06/2023 Cardiac Studies Cardiac Studies 08/07/2023 Office Visit Cardiology Bello Springer DO [address] [place] [address] 09/01/2023 Office Visit Family Medicine Jam Loo DO [address] [place] [address] Health Maintenance Due Date Last Done Comments COVID-19 Vaccine ( season) 2023 10/10/2021, 12/27/2020, 11/29/2020 Albumin/Creatinine Ratio 08/28/2023 08/28/2022 CKD HGB USE SMARTSET 09597 04/29/202404/29, 04/29/2023, 03/06/2022, Additional history exists CKD PHOS USE SMARTSET 41033 04/29/2024 04/29/2023, 0 03/22/2022 Depression Screening 04/29/2024 [...] this encounter Visit Diagnoses Diagnosis Encounter for long-term (current) use of medications- Primary Encounter for long-term (current) use of other medications documented in this encounter Care Teams Merchandise Handler Relationship Specialty Start Date End Date Jam Loo, [address] [place] [address] PCP - General Internal Medicine 02/18/22 documented as of this encounter
--- OUTSIDE RECORDS SUMMARY | 2023-08-31 10:29 | External Medical Summary | Summary of Care ---
Author Name Unknown Organization [facility] Address [address] [place] [address] Phone [phone] Care Team Providers Care It Risk And Assurance Manager Name Role Phone Moriah Loo DO Primary Care Provider Reason for Visit * Reason Comments Consultation * Evaluate & Treat - Unlimited Visits (Within 10 days (routine)) - Authorized Specialty Diagnoses / Procedures Referred By Contact Referred To Contact Cardiovascular Medicine / Cardiology Diagnoses Preoperative general physical examination Cardiomegaly Moriah Loo DO [address] [place] [address] Referral ID Status Reason Start Date Expiration Date Visits Requested Visits Authorized [id number] Authorized Specialty Services Required 3 [phone] Encounter Details Date Type Department Care Team Description 08/07/2023 Office Visit Cardiology, [facility] [address] [facility] [place] [address] Bello Srpinger DO [address] [facility] [place] [address] Pre-operative cardiovascular examination*; Aortic valve sclerosis; Aortic root dilatation (HCC); Ascending aorta dilatation (HCC) Allergies No known active allergiesdocumented as of this encounter (statuses as of 08/07/2023) Medications Medication Sig Dispensed Refills Start Date [...] as of this encounter (statuses as of 08/07/2023) Active Problems Problem Noted Date Hypertensive kidney [...] as of this encounter (statuses as of 08/07/2023) Resolved Problems Problem Noted Date Resolved Date Seborrheic dermatitis 09/30/2002 01/30/2022 Overview: ICD-10 update of inactive term Presbyacusis 01/30/2022 documented as of this encounter (statuses as of 08/07/2023) Immunizations Name Administration Dates Next Due COVID-19 [...] Sign Reading Time Taken Comments Blood Pressure 134/74 08/07/2023 11:12 AM EDT Pulse 59 08/07/2023 11:12 AM EDT Temperature - - Respiratory Rate 18 08/07/2023 11:1 2 AM EDT Oxygen Saturation - - Inhaled Oxygen Concentration - - Weight 108.3 kg (238 lb 11.2 oz) 10/19/ 2023 11:12 AM EDT Height - - Body Mass Index 35.25 04/29/2023 3:44 PM EDT documented in this encounter Progress Notes * Bello Springer, - 08/07/2023 11:32 AM EDT Cardiology Consultation [facility] 08/07/2023 PCP: [place] [address] [phone] History of Present Illness: Star Macario is a 88 year old year old male seen in cardiology consultation per the request of in preoperative evaluation prior to proposed right total knee arthroplasty scheduled for 08/20/[address] Moreno at [facility]. The patient is accompanied by his spouse, Nupur, and his daughter, Yesika. 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 His main complaint is ongoing right knee pain which is been refractory to non operative therapy. He is wearing a knee brace, and walks with the assistance of a cane. He notes family describes a stable degree of exertional shortness of breath which is relatively unchanged. He would recently been found to have a mild systolic murmur as well as enlargement of the heart silhouette on a screening chest x-ray. An echocardiogram was therefore performed yesterday with resultsas summarized below. Review of Systems: All systems reviewed & are unremarkable except as noted in HPI & below Cardiovascular: Patient describes a stable degree of exertional shortness of breath, no chest discomfort, no palpitations, no orthopnea Past Medical History: Patient Active Problem List Diagnosis Code Malignant [...] 3a chronic kidney disease (HCC) I12.9, N18.31 Past Surgical History: Procedure Laterality Date REMOVAL OF APPENDIX age 12-14 REMOVAL OF KIDNEY STONE 2006 REMOVE CATARACT, INSERT LENS PROSTH Bilateral Dr. 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 Medications: Current Outpatient Medications Medication Sig Dispense Refill [...] No current facility-administered medications for this visit. OBJECTIVE/PHYSICAL EXAMINATION: BP 134/74 | Pulse 59 | Resp 18 | Wt 108.3 kg (238 lb 11.2 oz) | BMI 35.25 kg/m | BSA 2.3 m General: no acute distress and stated age Eyes: conjunctiva are pink and non-injected, sclera clear Neck: normal jugular venous pulse, no hepatojugular reflux Chest: normal shape and normal respiratory effort Lungs: clear to auscultation and percussion Cardiac Exam: - regular heart sounds, I/ systolic murmur Abdomen: abdomen soft, non-tender, no abnormal masses and no hepatosplenomegaly Musculoskeletal: no gait disturbance, no weakness Extremities: 1+ left lower extremity edema Neuro: grossly normal exam Psych: appropriate affect and insight. Data: EKG performed today 08/07/2023 and interpreted independently: Sinus bradycardia 59 beats per minutewith first-degree AV block, otherwise normal EKG Summary of ttgalileo tseemd 08/06/23: The qualitative LV ejection fraction is 55-59% [...] ascending aorta is mildly enlarged, 4.4 cm. IMPRESSION: 88 year old year old male ICD-10-CM 1. Pre-operative cardiovascular examination Z01.810 2. 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 Aortic root dilatation (HCC) I77.810 4. 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 Preprocedure lab work had already been performed at [facility] on 07/25/2023 with stable renal function which was actually improved compared to his previous panel, creatinine 1.1, EGFR 60 mL/minute per meter squared. As noted, a screening preoperative chest x-ray had been performed with noted enlargement of the cardiac silhouette, this is likely explained by the mild concentric left ventricular hypertrophy, mild left atrial enlargement, and mild aortic root/mild ascending aorta enlargement noted on his echocardiogram. Patient is stable to proceed with upcoming proposed orthopedic surgery without further cardiac testing with an estimated low risk of perioperative cardiac complication. Would recommend repeat echocardiogram at a 1 year. Patient would like to have this performed with his primary care provider and to return to cardiology on an as-needed basis. Bello Springer, DO Cardiology, [address] [place] [address] This chart was completed in part utilizing [employer] Speech Voice Recognition Software. Grammatical errors, random word insertions, prounoun errors, and incomplete sentences are an occasional consequence of this system due to software limitations, ambient noise, and hardware issues. Any formal questions or concerns about the content, text, or information contained within the body of this dictation should be directly addressed to the provider for clarification. documented in this encounter Nursing Notes * Chelsie Baker LPN - 08/07/2023 11:12 AM EDT Examination Room: 10 Name: Star Macario Date of : (1935) Reason for Visit: New patient consult Interim Hospitalization(s): Denies Problems/Concerns: Pre op clearance for Right TKA on 08/20/23 Chest Pain/SOB: Denies My [facility] is a way you can talk to your provider online through e-mail. Would you like to sign up? I can activate it for you? DECLINES Patient was instructed to not get up on the exam table until directed and assisted by their provider; patient is to remain seated in the chair/ wheelchair/ exam table for fall prevention and safety reasons. Patient is aware to have assistance to step down off exam table with personnel. Patient voiced full comprehension of instructions. documented in this encounter Plan of Treatment Upcoming Encounters Date Type Specialty Care Team Description 09/01/2023 Office Visit Family Medicine Moriah Loo DO [address] [place] [address] Scheduled Orders Name Type Priority Associated Diagnoses Orde r Schedule EKG EKG Routine Pre-operative cardiovascular examination Ordered: 08/07/2023 Health Maintenance Due Date Last Done Comments COVID-19 Vaccine ( season) 2023 10/10/2021, 12/27/2020, 11/29/2020 Albumin/Creatinine Ratio 08/28/2023 08/28/2022 CKD HGB USE SMARTSET 04016 04/29/202404/29, 04/29/2023, 03/06/2022, Additional history exists CKD PHOS USE SMARTSET 02587 04/29/2024 04/29/2023, 0 03/22/2022 Depression Screening 04/29/2024 [...] as of this encounter Visit Diagnoses Diagnosis Pre-operative cardiovascular examination- Primary Aortic valve sclerosis Aortic valve disorders Aortic root dilatation (HCC) Thoracic aortic ectasia Ascending aorta dilatation (HCC) Thoracic aortic ectasia documented in this encounter Care Teams It Risk And Assurance Manager Relationship Specialty Start Date End Date Moriah Loo, [address] [place] [address] PCP - General Internal Medicine 02/18/22 documented as of this encounter"
--- OUTSIDE RECORDS SUMMARY | 2023-08-31 10:29 | External Medical Summary | Summary of Care ---
Author Name Unknown Organization [facility] Address [address] [place] [address] Phone [phone] Care Team Providers Care Admitting Representative Name Role Phone Jam Loo DO Primary Care Provider [phone] Reason for Visit * Reason Onset Date Comments Test Results 04/30/2023 Encounter Details Date Type Department Care Team Description 04/30/2023 Telephone Family Practice [address] [place] [address] [place] [address] Jam Loo DO [address] [place] [address] Test Results Allergies No known active allergiesdocumented as of this encounter (statuses as of 04/30/2023) Medications Medication Sig Dispensed Refills Start Date [...] as of this encounter (statuses as of 04/30/2023) Active Problems Problem Noted Date Hypertensive kidney [...] as of this encounter (statuses as of 04/30/2023) Resolved Problems Problem Noted Date Resolved Date Seborrheic dermatitis 09/30/2002 01/30/2022 Overview: ICD-10 update of inactive term Presbyacusis 01/30/2022 documented as of this encounter (statuses as of 04/30/2023) Immunizations Name Administration Dates Next Due COVID-19 [...] encounter Miscellaneous Notes * Telephone Encounter - Neeta Ahn LPN - 04/30/2023 10:23 AM EDT Pt's aware and verbalized understanding. * Telephone Encounter - Neeta Ahn LPN - 04/30/2023 10:21 AM EDT ----- Message from Jam Loo DO sent at 04/30/2023 9:42 AM EDT ----- Labs are good. Continue current medications. documented in this encounter Plan of Treatment Upcoming Encounters Date Type Specialty Care Team Description 09/01/2023 Office Visit Family Medicine Jam Loo DO [address] [place] [address] Health Maintenance Due Date Last Done Comments COVID-19 Vaccine (4 - Moderna series) 12/05/2021 10/10/2021, 12/27/2020, 11/29/2020 Influenza Vaccine (FLU shot) (#1) 2023 08/28/2022, 12/09/2015 Albumin/Creatinine Ratio 08/28/2023 08/28/2022 CKD HGB USE SMARTSET 59728 04/29/202404/29, 04/29/2023, 03/06/2022, Additional history exists CKD PHOS USE SMARTSET 36536 04/29/2024 04/29/2023, 0 03/22/2022 Depression Screening, Annual [...] filedocumented as of this encounter Care Teams Admitting Representative Relationship Specialty Start Date End Date Jam Loo, [address] [place] [address] PCP - General Internal Medicine 02/18/22 documented as of this encounter
--- OUTSIDE RECORDS SUMMARY | 2023-08-31 10:29 | External Medical Summary ---
Author Name Unknown Address Unknown Organization K01:LABORATORY [facility] - [address] [facility] [place] [address] Laboratory Report Ordering Provider Test Date Status YONY MAJOR 04/29/2023 16:02:03 Final Observation Date Value Abnormality Reference (Units ) Status SYNC LEUKOCYTES IN BLOOD BY AUTOMATED COUNT 04/29/2023 16:02:03 5.85 4.00-10.80 (K/uL) Final Segs 04/29/2023 16:02:03 71.0 40.0-75.0 (%) Final Lymphs % 04/29/2023 16:02:03 15.0 Below low normal 18.0-42.0 (%) Final Monos 04/29/2023 16:02:03 12.0 Above high normal 1.0-11.0 (%) Final Eosinophils 04/29/2023 16:02:03 1.5 0.0-6.0 (%) Final Basos 04/29/2023 16:02:03 0.3 0.0-2.0 (%) Final Immature Granulocyte, Percent 04/29/2023 16:02:03 0.2 0.0-2.0 (%) Final Absolute Segs 04/29/2023 16:02:03 4.15 1.80-7.70 (K/uL) Final Lymphs, absolute 04/29/2023 16:02:03 0.88 Below low normal 1.00-4.80 (K/ul) Final Monos, Abs 04/29/2023 16:02:03 0.70 0.00-1.10 (K/uL) Final Eos, Abs 04/29/2023 16:02:03 0.09 0.00-0.70 (K/uL) Final Basos, Abs 04/29/2023 16:02:03 0.02 0.00-0.20 (K/uL) Final Immature Granulocytes, Number 04/29/2023 16:02:03 0.01 0.00-0.20 (K/uL) Final Performing Location LABORATORY [facility] - [facility] [place] [address]
--- OUTSIDE RECORDS SUMMARY | 2023-08-31 10:29 | External Medical Summary ---
Author Name Unknown Address Unknown Organization K01:[facility] [place] [place] [address] [facility] [address] Laboratory Report Ordering Provider Test Date Status YONY MAJOR 04/29/2023 16:02:03 Final Observation Date Value Abnormality Reference (Units ) Status HbA1C 04/29/2023 16:02:03 6.2 Above high normal 4. 0-5.6 (%) Final The use of HbA1c to monitor glycemic status is based on normal hemoglobin and HbA composition. This test should not be used in patients with abnormal hemoglobin that affects the half life of the red blood cell or the in vivo glycation rates. Glucose, estimated average 04/29/2023 16:02:03 131 Above high normal <126 (mg/dL) Rufino coley Performing Location [facility] [address] [facility] [address]
== END 2023-08-29 11:55 | disposition home health service (06) ==
LOC: ASU 08:26 → 3N 08:26
DX: R73.03 Prediabetes; N18.30 Chronic kidney disease, stage 3 unspecified; I12.9 Hypertensive chronic kidney disease with stage 1 through stage 4 chronic kidney disease, or unspecified chronic kidney disease; M17.11 Unilateral primary osteoarthritis, right knee; Z79.82 Long term (current) use of aspirin; M10.9 Gout, unspecified; Z79.899 Other long term (current) drug therapy

== ENCOUNTER 2024-11-22 16:22 | Observation (INO) ==
[2024-11-22] MEDS ORDERED: TRANEXAMIC ACID 100 MG/ML 10 ML VIAL IV ONE (17:16)
--- NOTE | 2024-11-22 17:19 | Emergency Department Note ---
Impression & Plan Angioedema ED Provider Note Provider: Naren Lew MD CHIEF COMPLAINT: Lip swelling HISTORY OF PRESENT ILLNESS: Patient is a 89-year-old gentleman history of hypertension, CKD, or gout presenting here referred from the primary doctor's office. Evidently patient noted this morning at 7 AM that his upper lip was swollen. Was awake before then. No other swelling or tongue issues. No other trouble breathing or shortness of breath. Seen at the [facility] office by his primary doctors group and concerned it is angioedema related to his JUAN MANUEL inhibitor. Has been on this for some time and did take it this morning. Referred here for further airway monitoring. Patient again denies any difficulty breathing at this time. No other known allergens or trauma reported. No rash. Did have lunch today. PAST MEDICAL HISTORY: As noted above MEDICATIONS: Reviewed home medications currently includes 10 mg daily lisinopril SOCIAL HISTORY: Lives at home with PHYSICAL EXAM: GENERAL: alert and oriented in no acute distress on stretcher with a prominent upper lip notable. Head: normocephalic and atraumatic other than prominent lip swelling of the upper note without significant erythema or wounds noted. EYES: No injection, discharge or icterus. PERRL, EOMI. NECK: Trachea midline. Supple good range of motion ENT: Mucous membranes pink and moist. Prominent symmetric upper lip swelling. No wounds appreciable. No lower lip swelling. Pharynx without erythema or exudate. No pharyngeal swelling or tongue elevation. LUNGS: Airway patent. No retractions. Breath sounds clear with good air entry bilaterally. HEART: Regular rate and rhythm. No chest wall tenderness ABDOMEN: Soft and non-tender, without guarding or rebound. SKIN: Acyanotic, warm, dry, without rashes EXTREMITIES: Without swelling, tenderness or deformity NEUROLOGICAL: No focal deficits. No aphasia. No facial droop or slurred speech. EK bpm sinus rhythm first-degree heart block. No PVC or PAC. No acute ST segment elevation or depression with a QTc of 382. CONTINUOUS CARDIAC MONITORING: was ordered and showed a heart rate of 60s to 70s bpm in the prescribed heart block Patient's laboratory studies and imaging reviewed. Differential includes Allergic reaction, anaphylaxis, urticaria, Chavez-Mele syndrome, toxic epidermal necrolysis, erythema multiforme, contact dermatitis, cellulitis, as well as other pathologies. IMPRESSION/MEDICAL DECISION MAKING: No other rashes. No respiratory compromise or difficulty swallowing or breathing. No stridor. Appears isolated upper lip swelling. No other new exposures to allergens. Was at PCP and referred here today. Seems likely angioedema and obviously his JUAN MANUEL inhibitor is a high likelihood culprit. No other new medications reported otherwise well. Basic labs and EKG obtained. Given a dose of steroids here as well as some oral cetirizine. During be careful to avoid delirium with large doses of IV antihistamines when their efficacy is questionable if at all and angioedema cases. Will give a dose of IV TXA given there is no history reported of any clotting see if this does help. Will monitor him. Discussed with him and his to recommend given the significance facial swelling of the upper lip and his age that we do monitor him here. If he develops any significant worsening he is immediately available for medical care here. After discussion with and daughter the patient was agreeable with this plan. Discussed with the hospitalist team for further observation. DIAGNOSIS: Angioedemaupper lip DISPOSITION: Hospitalist will evaluate Patient was agreeable with this plan. Past Med/Surg History Problem List (Updated 11/22/24 @ 22:30 by Naren Lwe M.D.) Angioedema (Acute) Angioedema Gout CKD (chronic kidney disease), stage III HTN (hypertension) S/P total knee arthroplasty Primary osteoarthritis of right knee Encounter for pre-operative examination Cellulitis Right knee DJD History of melanoma in situ History of SCC (squamous cell carcinoma) of skin (Acute) History of basal cell carcinoma (Acute) Medical History Pre-diabetes Surgical History Hx of squamous cell carcinoma excision Hx of basal cell carcinoma excision Hx of melanoma excision Hx of colonoscopy History of prostate surgery History of hernia repair Multiple (including Right inguinal) History of cataract surgery R/L Family History Other No pertinent family history Social History Smoking Status: Current some day smoker Tobacco Type: Cigarettes Cigarettes Per Day: 6; Second Hand Exposure: No; Do You Dip or Chew Tobacco: No; Tobacco Cessation Education Requested by Patient: No Hx Alcohol Use: No Hx Substance Use: No Preferred Language: Mauritanian Communication Ability: Effective Casino Manager Required: No Beliefs That Will Affect Care: None Current Living Situation: Spouse Other Information That Helps Us Care for You: No Feels Safe at Home: Yes Safety Concerns: Feels Safe At This Time Assistive Devices: Denture - Upper, Denture - Lower and Glasses Allergies Allergies Allergy/AdvReac Type Severity Reaction Status Date / Time lisinopril Allergy Severe angioedema Verified 11/22/24 18:42 Home Meds Home Medications Medication Instructions Recorded Confirmed furosemide 40 mg tablet 40 mg PO DAILY 03/19/21 11/22/24 potassium chloride 10 mEq 10 meq PO DAILY 03/19/21 11/22/24 capsule,extended release allopurinol 200 mg tablet 200 mg PO QAM 07/23/23 11/22/24 Previous Rx's Medication Instructions Recorded acetaminophen 500 mg tablet 1,000 mg (2 x 500 mg) PO Q8 #60 08/29/23 (Tylenol Extra Strength) tabs aspirin 81 mg tablet,delayed 81 mg PO BID #60 tabs 08/29/23 release Results & Data (ED) Vital Signs Vital Signs - 24 hr 11/22/24 16:37 11/22/24 16:57 11/22/24 16:57 Temperature 36.5 C Temperature Source Temporal Artery Scan Pulse Rate 71 Pulse Rate [Apical] 64 Pulse Rhythm [Apical] Regular Pulse Strength [Apical] Normal Respiratory Rate 18 20 Respiratory Effort / Characteristics Non-Labored Spontaneous Non-Labored Respiratory Depth Normal Normal Blood Pressure 164/92 H Blood Pressure [Left Arm] 163/79 H Blood Pressure Mean 116 Blood Pressure Mean [Left Arm] 107 Pulse Oximetry 96 96 Oxygen Delivery Method Room Air Room Air Room Air Sepsis Recent Fever Within 48 Hours No Sepsis New/Unexplained Change in Mental Status No Sepsis Action Taken by Nursing No Action Required 11/22/24 16:57 11/22/24 17:00 Temperature Temperature Source Pulse Rate 67 Pulse Rate [Apical] Pulse Rhythm [Apical] Pulse Strength [Apical] Respiratory Rate Respiratory Effort / Characteristics Respiratory Depth Blood Pressure Blood Pressure [Left Arm] Blood Pressure Mean Blood Pressure Mean [Left Arm] Pulse Oximetry Oxygen Delivery Method Room Air Sepsis Recent Fever Within 48 Hours Sepsis New/Unexplained Change in Mental Status Sepsis Action Taken by Nursing Laboratory Data 11/22/24 16:54 11/22/24 16:54 Lab Results 11/22/24 Range/Units 16:54 WBC 5.84 (4.8-10.8) K/ul RBC 5.00 (4.70-6.10) M/uL Hgb 15.5 (14.0-18.0) g/dl Hct 47.1 (42.0-52.0) % MCV 94.2 (80.0-100.0) fL MCH 31.0 (25.0-34.0) pg MCHC 32.9 (32.0-36.0) g/dL RDW Std Deviation 46.5 H (36.4-46.3) fL RDW Coeff of Herbie 13.3 (11.5-14.5) % Plt Count 212 (130-400) K/uL MPV 10.8 (9.4-12.4) fL Immature Gran % (Auto) 0.3 % Neut % (Auto) 62.8 % Lymph % (Auto) 22.1 % [place] % (Auto) 12.8 % Eos % (Auto) 1.5 % Baso % (Auto) 0.5 % Neut # (Auto) 3.66 (1.40-6.50) K/uL Lymph # (Auto) 1.29 (1.20-3.40) K/uL [place] # (Auto) 0.75 H (0.11-0.59) K/uL Eos # (Auto) 0.09 (0.00-0.50) K/uL Baso # (Auto) 0.03 (0.00-0.20) K/uL Immature Gran # (Auto) 0.02 (0.01-0.20) K/uL Sodium 138 (136-145) mmol/L Potassium 4.8 (3.5-5.1) mmol/L Chloride 100 (98-107) mmol/L Carbon Dioxide 34 H (21-32) mmol/L Anion Gap 4 (3-11) BUN 30 H (6-23) mg/dl Creatinine 1.24 (0.6-1.4) mg/dl Est Cr Clr Drug Dosing 51.7 ml/min eGFR 55.92 BUN/Creatinine Ratio 24.2 H (10-20) Glucose 116 H (70-99(Fasting)) mg/dl Calcium 9.3 (8.6-10.3) mg/dl Total Bilirubin 0.7 (0.2-1.0) mg/dl AST 14 (13-39) U/L ALT 11 (7-52) U/L Alkaline Phosphatase 78 (34-104) U/L C-Reactive Protein 0.55 H (0-0.5) mg/dl Total Protein 7.1 (6.0-8.3) gm/dl Albumin 4.2 (3.4-5.0) gm/dl Globulin 2.9 (2.5-4.0) gm/dl Albumin/Globulin Ratio 1.4 (0.9-2) Administered Medications Acetaminophen (Acetaminophen 500 Mg Tab) 1,000 mg PO Q8 JOLYNN Stop: 12/22/24 21:59 Last Admin: 11/22/24 21:46 Dose: 1,000 mg Documented By: JULITO Aspirin (Aspirin 81 Mg Ectab) 81 mg PO BID JOLYNN Stop: 12/22/24 21:05 Last Admin: 11/22/24 21:43 Dose: 81 mg Documented By: JLUITO Enoxaparin Sodium (Enoxaparin Inj 40 Mg/0.4 Ml Syr) 40 mg SQ HS JOLYNN Stop: 12/22/24 21:05 Last Admin: 11/22/24 21:42 Dose: 40 mg Documented By: JULITO Sodium Chloride (Nss) 1,000 mls @ 80 mls/hr IV .[id number] JOLYNN Stop: 11/23/24 07:14 Last Admin: 11/22/24 19:06 Dose: 80 mls/hr Documented By: HB Ketoconazole (Ketoconazole 2% Cr 15 Gm Tube) 1 appln EXT BID JOLYNN Stop: 12/02/24 21:05 Last Admin: 11/22/24 21:42 Dose: 1 appln Documented By: DA Discontinued Medications Cetirizine HCl (Cetirizine Hcl 10 Mg Tablet) 10 mg PO NOW ONE Stop: 11/22/24 17:15 Last Admin: 11/22/24 17:28 Dose: 10 mg Documented By: HB Tranexamic Acid (Tranexamic Acid / 0.7% Nacl) 1,000 mg in 100 mls @ 600 mls/hr IV NOW ONE Stop: 11/22/24 17:39 Last Infusion: 11/22/24 17:50 Dose: Infused Documented By: Admin: 11/22/24 17:36 Dose: 600 mls/hr Documented By: MOSHE Methylprednisolone (Methylprednisolone 125 Mg/2 Ml Vial) 60 mg IV NOW STA Stop: 11/22/24 17:15 Last Admin: 11/22/24 17:28 Dose: 60 mg Documented By: MOSHE Methylprednisolone (Methylprednisolone 125 Mg/2 Ml Vial) 40 mg IV ONE ONE Stop: 11/22/24 22:01 Last Admin: 11/22/24 21:45 Dose: 40 mg Documented By: [facility] Discharge Plan Visit Data Chief Complaint: Allergic Reaction Stated Complaint: CUT LIP LACERATION, ED Provider: Naren Lew Discharge Problem: Angioedema Patient Disposition: Admitted As Inpatient Discharge Instructions Interventions: ED Discharge Assessment Last Done: 11/22/24 20:35 Discharge Problem: Angioedema Qualifiers: Encounter type: initial encounter Qualified Code(s): T78.3XXA - Angioneurotic edema, initial encounter
[2024-11-22 17:20] LABS: Basophils # (auto) 0.03 K/uL (0.00-0.20); Basophils % (auto) 0.5 %; Eosinophils # (auto) 0.09 K/uL (0.00-0.50); Eosinophils % (auto) 1.5 %; Hematocrit (blood only) 47.1 % (42.0-52.0); Hemoglobin 15.5 g/dl (14.0-18.0); Immature Granulocytes # (auto) 0.02 K/uL (0.01-0.20); Immature Granulocytes % (auto) 0.3 %; Lymphocytes # (auto) 1.29 K/uL (1.20-3.40); Lymphocytes % (auto) 22.1 %; Mean Corpuscular Hgb Conc 32.9 g/dL (32.0-36.0); Mean Corpuscular Volume 94.2 fL (80.0-100.0); Mean Platelet Volume 10.8 fL (9.4-12.4); Monocytes # (auto) 0.75 K/uL (0.11-0.59); Monocytes % (auto) 12.8 %; Neutrophils # (auto) 3.66 K/uL (1.40-6.50); Neutrophils % (auto) 62.8 %; Platelet Count 212 K/uL (130-400); RDW Coefficient of Variation 13.3 % (11.5-14.5); RDW Standard Deviation 46.5 fL (36.4-46.3); White Blood Count 5.84 K/ul (4.8-10.8)
[2024-11-22] MEDS: methylPREDNISolone 125 MG/2 ML VIAL IV STA (17:28)
[2024-11-22] MEDS: CETIRIZINE HCL 10 MG TABLET PO ONE (17:28)
[2024-11-22] MEDS: TRANEXAMIC ACID / 0.7% NACL 1,000 MG/100 ML BAG IV ONE (17:36)
[2024-11-22 17:38] LABS: Albumin Level 4.2 gm/dl (3.4-5.0); Bilirubin,Total 0.7 mg/dl (0.2-1.0); Calcium 9.3 mg/dl (8.6-10.3); Potassium 4.8 mmol/L (3.5-5.1)
[2024-11-22 17:44] LABS: Albumin Globulin Ratio 1.4 (0.9-2); BUN Creatinine Ratio 24.2 (10-20); Creatinine Clr Calc Pharmacy 51.7 ml/min; Globulin 2.9 gm/dl (2.5-4.0); Total Protein 7.1 gm/dl (6.0-8.3)
[2024-11-22 18:40] LABS: C Reactive Protein 0.55 mg/dl (0-0.5)
--- NOTE | 2024-11-22 18:44 | History & Physical Report ---
Date of Service November 22, 2024 Assessment & Plan (1) Angioedema: (2) HTN (hypertension): (3) CKD (chronic kidney disease), stage III: Plan This is an 89-year-old male who has significant past medical history of HTN, HLD, prediabetes, ascending aortic aneurysm, CKD stage III, gout, Alzheimer's, depression and tobacco use who presents to ED secondary to swelling of his upper lip. #Angioedema - suspected related to Lisinopril admit to PCU airway intact, cont pulse ox Received 60 mg IV Solu-Medrol in ED, will give additional 40 mg IV this evening Start prednisone orally 40 mg daily, recommend discharge on taper if remains stable Zyrtec 10 mg once daily stop lisinopril soft diet until swelling resolves gentle IVF x 1 L #HTN: chronic, BP elevated in ED, will need to monitor closely off lisinopril as he may need additional agent. Currently only on lasix #HLD: chronic, stable on statin #CKD-3 - baseline cr 1.1, bun/cr stable, avoid nephrotoxic agents #Gout: chronic, on allopurinol #Chronic use of chewing tobacco: encourage cessation, declines nicotine patch #Seborrheic dermatitis of facial hair region: ketoconazole cream bid #DVT ppx: SQ Lovenox FULL CODE PCP: Cinda Dispo: admit to PCU for close airway monitoring Pt was seen and examined in collaboration with Dr. Villalba, please see addendum I spent a total of 60 minutes coordinating, documenting and providing care for this patient excluding time spent in the performance of separately billed se rvices or time spent by another provider/QHP. History of Present Illness Chief Complaint: Upper lip swelling x 1 day. Primary Care Provider: Jam Loo, This is an 89-year-old male who has significant past medical history of HTN, HLD, prediabetes, ascending aortic aneurysm, CKD stage III, gout, Alzheimer's, depression and tobacco use who presents to ED secondary to swelling of his upper lip. Daughter is at bedside who helps elicit history. was on the phone and also helped elicit history. Patient states he woke up this morning in his normal state of health. Approximately 30 minutes to 1 hour after taking his mor dipak medications he noticed swelling and tingling to his upper lip. It progressed to the point he felt his upper lip was numb. When he looked in the mirror he saw significant swelling to the upper lip. At that time he denied any shortness of breath, drooling, inability to handle his own secretions. He did have difficulty eating noodles today but that was due to the swelling of his lip, not because he felt he had difficulty swallowing. He denies ever having similar symptoms in the past. The states approximately 3 weeks ago she noticed his upper lip swell, but resolved on its own. He was seen and evaluated by PCP today who recommended urgent ER evaluation. He had been on lisinopril for many years and it was recommended that he stop this as it could be the result of his angioedema. Otherwise there is no new foods or medications that he started. In ED patient remained hemodynamically stable. He is saturating well on room air. His CBC and CMP was unremarkable. He received IV Solu- Medrol, Zyrtec and tranexamic acid in the ED. He currently chews tobacco, but rarely. He denies any alcohol use. Allergies Allergy/AdvReac Type Severity Reaction Status Date / Time lisinopril Allergy Severe angioedema Verified 11/22/24 18:42 Home Medications Medication Instructions Recorded Confirmed Type furosemide 40 mg tablet 40 mg PO DAILY 03/19/21 11/22/24 History potassium chloride 10 mEq 10 meq PO DAILY 03/19/21 11/22/24 History capsule,extended release allopurinol 200 mg tablet 200 mg PO QAM 07/23/23 11/22/24 History acetaminophen 500 mg tablet 1,000 mg (2 x 500 mg) PO Q8 #60 08/29/23 11/22/24 Rx (Tylenol Extra Strength) tabs aspirin 81 mg tablet,delayed 81 mg PO BID #60 tabs 08/29/23 11/22/24 Rx release Past Med/Surg History Problem List (Updated 11/22/24 @ 18:41 by Thais Ramirez PA-C) Angioedema Gout CKD (chronic kidney disease), stage III HTN (hypertension) S/P total knee arthroplasty Primary osteoarthritis of right knee Encounter for pre-operative examination Cellulitis Right knee DJD History of melanoma in situ History of SCC (squamous cell carcinoma) of skin (Acute) History of basal cell carcinoma (Acute) Medical History Pre-diabetes Surgical History Hx of squamous cell carcinoma excision Hx of basal cell carcinoma excision Hx of melanoma excision Hx of colonoscopy History of prostate surgery History of hernia repair Multiple (including Right inguinal) History of cataract surgery R/L Family History Other No pertinent family history Social History Smoking Status: Never smoker Tobacco Type: Smokeless Tobacco (Dip or Chew) Second Hand Exposure: No; Do You Dip or Chew Tobacco: Yes (advised); Hx Alcohol Use: No Hx Substance Use: No Preferred Language: Belizean Communication Ability: Effective Pool Finisher Required: No Beliefs That Will Affect Care: None Current Living Situation: Spouse Feels Safe at Home: Yes Assistive Devices: Cane Review of Systems Review of Systems: All systems reviewed & are unremarkable except as noted in HPI & below Physical Exam Physical Exam: constitutional: WD/WN, elderly, M, vitals as above, NAD, sitting up in bed, pleasant, conversing easily Head: Normocephalic, Atraumatic Eyes: PERRL, conjunctivae normal, anicteric sclerae ENMT: external ear and nose normal, oropharynx normal + angioedema of the upper lip Neck: trachea midline, no thyromegaly normal visual inspection Respiratory: normal respiratory effort, lungs clear to auscultation, no wheeze, rales, rhonchi. Normal insp/exp effort, no accessory muscle use Cardiovascular: RRR, no murmur, no edema Vessels: no JVD or carotid bruit Chest: normal inspection of chest Abdomen: normal bowel sounds, soft, nontender, no hepatosplenomegaly Musculoskeletal: no cyanosis or clubbing, extremities motor strength 5/5 Skin: +seborrheic dermatitis of facial hair region, no rashes, warm and dry normal turgor Neurologic: PERRL, EOMI, accommodation nl, no face palsy, no dysarthria CN's II-XI intact bilaterally and moves all extremities Psychiatric: A+Ox3, euthymic affect Lymphatic: no cervical or axillary lymphadenopathy : deferred Results & Data Results & Data Vital Signs (Past 12 Hours) Vital Signs Temp Pulse Pulse Resp BP BP Pulse Ox 11/22/24 17:00 67 11/22/24 16:57 11/22/24 16:57 11/22/24 16:57 64 20 163/79 H 96 11/22/24 16:37 36.5 C 71 18 164/92 H 96 O2 Del Method 11/22/24 17:00 11/22/24 16:57 Room Air 11/22/24 16:57 Room Air 11/22/24 16:57 Room Air 11/22/24 16:37 Room Air Laboratory Results I have independently reviewed and interpreted patient's admitting labs including CBC, CMP, crp Medications Administered Medication List Discontinued Medications Cetirizine HCl (Cetirizine Hcl 10 Mg Tablet) 10 mg PO NOW ONE Stop: 11/22/24 17:15 Last Admin: 11/22/24 17:28 Dose: 10 mg Documented By: MOSHE Tranexamic Acid (Tranexamic Acid / 0.7% Nacl) 1,000 mg in 100 mls @ 600 mls/hr IV NOW ONE Stop: 11/22/24 17:39 Last Infusion: 11/22/24 17:50 Dose: Infused Documented By: Admin: 11/22/24 17:36 Dose: 600 mls/hr Documented By: HB Methylprednisolone (Methylprednisolone 125 Mg/2 Ml Vial) 60 mg IV NOW STA Stop: 11/22/24 17:15 Last Admin: 11/22/24 17:28 Dose: 60 mg Documented By: HB ECG Additional Comments: I have independently reviewed and interpreted patient's admitting EKG which revealed: NSR 70bpm first degree AVB Code Status & VTE Plan Code Status FULL CODE VTE Prophylaxis Plan VTE Prophylaxis will be ordered: Yes Supervising Physician Co-Signing Physician Notes Attending addendum: The patient was seen and examined in emergency room He has been complaining of sudden swelling of the upper lip since this morning He has had similar swelling before but resolved on its own Did not have any other symptoms associated with it He has been on lisinopril for high blood pressure On examination Lying in bed without any apparent distress Hemodynamically stable with blood pressure on the upper side at 163/79 Chest clear to auscultate bilaterally HeartS1-S2, regular Abdomenbenign Extremities1+ edema bilaterally and may have component of lymphedema Upper lipssignificantly swollen without any evidence of tongue swelling and/or throat swelling His labs and imaging studies reviewed Significant swelling of the upper lip likely a variant of angioedema secondary to lisinopril Received steroid with methylprednisone x 2 intravenous doses and getting H H1 deya Agree with assessment and plan as outlined above by Brionna Tripathi PA-C and take the full responsibility of care in the hospital Dr Gray Villalba (2) HTN (hypertension) Hypertension type: unspecified Qualified Code(s): I10 - Essential (primary) hypertension (3) CKD (chronic kidney disease), stage III Chronic kidney disease stage 3 subtype: unspecified whether 3a or 3b Qualified Code(s): N18.30 - Chronic kidney disease, stage 3 unspecified
[2024-11-22] MEDS: SODIUM CHLORIDE 0.9% 1,000 ML IV SCH (19:06)
[2024-11-22] MEDS ORDERED: ONDANSETRON INJ 2 MG/ML 2 ML VIAL IV PRN (21:06)
[2024-11-22] MEDS ORDERED: POLYETHYLENE (MIRALAX) 17 GM PACK PO PRN (21:06)
[2024-11-22] MEDS: ENOXAPARIN INJ 40 MG/0.4 ML SYR SQ SCH (21:42)
[2024-11-22] MEDS: KETOCONAZOLE 2% CR 15 GM TUBE EXT SCH (21:42)
[2024-11-22] MEDS: ASPIRIN 81 MG ECTAB PO SCH (21:43)
[2024-11-22] MEDS: methylPREDNISolone 125 MG/2 ML VIAL IV ONE (21:45)
[2024-11-22] MEDS: ACETAMINOPHEN 500 MG TAB PO SCH (21:46)
--- OUTSIDE RECORDS SUMMARY | 2024-11-23 00:44 | External Medical Summary ---
Author Name Unknown Address Unknown Organization [id number]:[facility] [place] - [address] [place] [address] Laboratory Report Ordering Provider Test Date Status PILAR BRUNNER 07/06/2024 16:02:49 Final Deficient: <20 ng/mL
Ins ufficient: 20-29 ng/mL
Recommended/Optimum:30-50 ng/mL

Vitamin D intoxication is rare. If suspicious of Vitamin D toxicity, evaluation of serum Calcium and PTH is recommended. Observation Date Value Abnormality Reference (Units ) Status 25-OH Vitamin D total 07/06/2024 16:02:49 39 >19 (ng/mL) Final Performing Location [facility] - [address] [place] [address]
--- OUTSIDE RECORDS SUMMARY | 2024-11-23 00:44 | External Medical Summary | Summary of Care ---
Author Name Unknown Organization [facility] Address [address] [place] [address] Phone [phone] Care Team Providers Care Etiquette Teacher Name Role Phone Jam Loo DO Primary Care Provider [phone] Reason for Visit * Reason Onset Date Comments NEW PATIENT Medication Administration 07/06/2024 Flu an d/or Pneumo Inj * Evaluate & Treat - Unlimited Visits (Within 10 days (routine)) - Authorized Specialty Diagnoses / Procedures Referred By Contac t Referred To Contact Neurology Diagnoses Memory loss Jam Loo DO [address] [place] [address] Referral ID Status Reason Start Date Expiration Date Visits Requested Visits Authorized [id number] Authorized Specialty Services Required 06/16/[phone] Encounter Details Date Type Department Care Team (Late st Contact Info) Description 07/06/2024 3:30 PM EDT Office Visit Neurology [facility] [address] [place] [address] Lorenza Hardin PA-C [address] [facility] [place] [address] Mild dementia without behavioral disturbance, psychotic disturbance, mood disturbance, or anxiety, unspecified dementia type (HCC)*; Need for prophylactic vaccination and inoculation against influenza Allergies No known active allergiesdocumented as of this encounter (statuses as of 07/06/2024) Medications Medication Sig Dispensed Refills Start Date End Date Status Aspirin 81 MG Tablet Take 1 Tablet by mouth in the morning. Active Diclofenac Sodium 1 % External Gel (Voltaren) Apply topically to affected area 2 g in the morning AND 2 g before bedtime. Apply to bilateral knees. 100 g 3 05/07/2022 Active Acetaminophen 500 MG Oral Tablet (Tylenol) Take 2 Tablets by mouth every 6 hours as needed for Pain, Moderate. 08/04/2023 Active Furosemide 40 MG Oral Tablet (Lasix)Indications:H ypertensive kidney disease with stage 3a chronic kidney disease (HCC) Take 1 Tablet by mouth in the morning. 90 Tablet 1 04/13/2024 Active Polyethylene Glycol 3350 17 GM/SCOOP Oral Powder (MiraLax)Indications :Slow transit constipation Take 17 g by mouth in the morning. Dissolve one heaping tablespoon in 8 ounces of water or juice.. 510 g 3 06/16/2024 Active Lisinopril 10 MG Oral Tablet (Prinivil)Indication s:Hypertensive kidney disease with stage 3a chronic kidney disease (HCC) Take 1 Tablet by mouth in the morning. 90 Tablet 3 06/16/2024 Active Vitamin B12 500 MCG Oral TabletIndications:B1 2 deficiency Take 1 Tablet by mouth daily. 06/17/2024 Active Allopurinol 100 MG Oral Tablet (Zyloprim)Indication s:Gouty arthropathy Take 2 Tablets by mouth in the morning. 200 Tablet 2 07/06/2024 Active Potassium Chloride ER 10 MEQ Oral Capsule Extended ReleaseIndications:H ypertensive kidney disease with stage 3a chronic kidney disease (HCC),HTN, goal below 140/90 Take 1 Capsule by mouth in the morning. 90 Capsule 2 07/06/2024 Active documented as of this encounter (statuses as of 07/06/2024) Active Problems Problem Noted Date Diagnosed Date Current moderate episode of major depressive disorder without prior episode 01/13/2024 Exudative age-related macula r degeneration, right eye, with active choroidal neovascularization 01/13/2024 Status post total right knee replacement 023 Aneurysm of ascending aorta without rupture 07/21 [...] as of this encounter (statuses as of 07/06/2024) Resolved Problems Problem Noted Date Diagnosed Date Resolved Date Seborrheic dermatitis 09/30/20022021 Overview: ICD-10 update of inactive term Presbyacusis 01/30/2022 documented as of this encounter (statuses as of 07/06/2024) Immunizations Name Administration Dates Next Due COVID-19 mRNA, LNP-s, No Pre serve, 2-Dose Series (Moderna) 12/27/2020,11/29/2020 COVID-19, mRNA, LNP-s, PF, B ooster, 100mcg/0.5mg (Moderna) 10/10/2021 Pneumococcal Conjugate Vaccine, 20-valent (Prevn ar20) 12/30/2022 RSV Vac., Bivalent, Perfusion F, Pf,0.5 Ml (Abry svo) 01/13/2024 Seasonal Influenza Virus Vac cine, Unspecified Formulation 12/09/2015 Seasonal Influenza, High Dos e, Trivalent, PF, IM (Fluzone HD) 07/06/2024 Seasonal Influenza, Quadrivalent Hd (Fluzone Hd) 08/04/2023,08/28/2022 [...] Answer Date Recorded PHQ Adult Total Score 8 09/10/2023 Hunger Vital Sign Answer Date Recorded Within the past 12 months, y ou worried that your food would run out before you got the money to buy more. Never true 09/10/20 23 Within the past 12 months, t he food you bought just didn't last and you didn't have money to get more. Never true 09/10/2023 Childcare Answer Date Recorded Do you feel overwhelmed with taking care of a child, family member or friend? No 09/10/2023 Does your family need help f inding childcare? (Household - for ages 0-17 years) Not on file 09/10/2023 Clothing Answer Date Recorded Have you been unable to get clothing when it was really needed? No 09/10/2023 Is your family able to get c lothes or diapers when needed? (Household - for ages 0-17 years) Not on file 09/10/2023 Personal Safety Answer Date Recorded Do you feel unsafe or have concerns for your saf ety? No 09/10/2023 Do you have concerns for you r family's safety? (Household - for ages 0-17 years) Not on file 09/10/2023 Utilities Answer Date Recorded Do you have trouble paying y our heating, water, or electric bill? No 09/10/2023 Is your family able to pay t he heat, water, or electric bill? (Household - for ages 0-17 years) Not on file 09/10/2023 Does your family have access to good internet? (Household - for ages 0-17 years) Not on file 09/10/2023 Employment Status Answer Date Recorded Are you unemployed or without regular income? No 09/10/2023 Does the household have a re gular source of income? (Household - for ages 0-17 years) Not on file 09/10/2023 Social Connections Answer Date Recorded How often do you feel lonely or isolated from th ose around you? Never 09/10/2023 Financial Resource Strain Answer Date R ecorded Do you have any trouble payi ng for your medications, or do you think you might in the future? No 09/10/2023 Does your family have troubl e paying for medicine? (Household - for ages 0-17 years) Not on file 09/10/2023 Transportation Needs Answer Date Record ed READ ONLY Do you have troubl e getting a ride to medical visits or work? Never True 09/10/2023 Does your family have a hard time getting a ride to doctors visits? (Household - for ages 0-17 years) Not on file 09/10/2023 Has lack of transportation k ept you from medical appointments, meetings, work, or from getting things needed for daily living? Check all that apply. (Adult - for ages 18 years and over) Not on file 09/10/2023 Do you (or your family) have trouble finding or paying for a ride (transportation)? (Household - for ages 0-17 years) Not on file 09/10/2023 Housing Stability Answer Date Recorded Do you currently live in a s helter or have no steady place to sleep at night? No 09/10/2023 READ ONLY Do you think you a re at risk of becoming homeless? No 09/10/2023 Does your family worry about paying for your home or becoming homeless? (Household - for ages 0-17 years) Not on file 1 11/10/2022 Are you homeless or worried that you might be in the future? (Adult - for ages 18 years and over) Not on file Are you (or your family) liban eless or worried that you might be in the future? (Household - for ages 0-17 years) Not on file Food Insecurity Answer Date Recorded Do you need food for this week? No 09/10/2023 Are you able to get enough f ood for your family? (Household - for ages 0-17 years) Not on file 09/10/2023 Does your family need food t his week? (Household - for ages 0-17 years) Not on file 09/10/2023 Do you always have enough fo od for your family? (Household - for ages 0-17 years) Not on file 09/10/2023 Sex and Gender Information Value Date Recorded Sex Assigned at Male 01/30/2022 7:58 AM EDT Gender Identity Male 01/30/2022 7:58 AM EDT Sexual Orientation Straight 01/30/2022 7: 58 AM EDT Job Start Date Occupation Industry Not on file Not on file Not on file documented as of this encounter Last Filed Vital Signs Vital Sign Reading Time Taken Comments Blood Pressure 144/72 07/06/2024 3:08 PM EDT Pulse 91 07/06/2024 3:08 PM EDT Temperature 36.2 C (97.1 F) 07/06/2024 3:08 PM ED T Respiratory Rate 18 07/06/2024 3:08 PM EDT Oxygen Saturation 96% 07/06/2024 3:08 PM EDT Inhaled Oxygen Concentration - - Weight 109 kg (240 lb 6.4 oz) 07/06/2024 3:08 PM EDT Height - - Body Mass Index 35.5 06/16/2024 8:04 AM EDT documented in this encounter Patient Instructions * Patient Instructions* Lorenza Hardin PA-C - 07/06/2024 3:20 PM EDT Images from the original note were not included. ~~PATIENT INSTRUCTIONS FOR FLU SHOT~~ Possible side [...] OF EYES, FACE OR INSIDE OF NOSE. Information on brain health and aging One thing that consistently declines with age is processing speed. The best ways to improve performance are to give yourself adequate time when pursuing cognitive tasks, work with no distractions, and avoid multitasking. Multitasking is in fact rapidly alternating between two activities, not doing two activities simultaneously. While in the past you may have been able to switch rapidly enough to maintain both activities, this can now be a problem for performance. With regards to cognitive exercise, the closer you can get to the real world activity that you wishto improve the more likely it is to carry over into real life. For example, if you want to improve remembering the names of people you meet, play a game with faces on cards that you have to match to names. In addition, theoretically learning a completely new domain of knowledge will stimulate the brain, for example, learning a new language. The online cognitive exercise program with the most evidence based medicine for actually helping reduce risk of cognitive decline is called Brain[employer], which is a pay service. Others programs may be helpful as well. Physical exercise is one of the most important things you can do for your brain health and general health. Do at least 30 minutes every day of moderate intensity cardiovascular exercise (where it is just a little hard to talk during the exercise). Diet: Both the Mediterranean diet and the MIND-DASH diet are recommended for brain and heart health. I. The Mediterranean diet is rich in fish, olive oil, grains, and less fat and red meat has been shown to improve brain and heart health. You can visit their website, https://AirXpanders/, for free recipes! II. The MIND-DASH diet is a modified version of the Mediterranean diet, has also been shown to reduce the risk of dementia. GOOD: Green leafy vegetables (like spinach and salad greens): At least six servings a week Other vegetables: At least one a day Nuts: Five servings a week Berries: Two or more servings a week Beans: At least three servings a week Whole grains: Three or more servings a day Fish: Once a week Poultry (like chicken or turkey): Two times a week [place] oil: Use it as your main cooking oil. Wine: One glass a day AVOID: Red meat: Less than four servings a week Butter and margarine: Less than a tablespoon daily Cheese: Less than one serving a week Pastries and sweets: Less than five servings a week Fried or fast food: Less than one serving a week Alcohol consumption: Alcohol interferes with brain function, not just during drinking or hours after drinking, but medical terminologist it causes negative changes on the brain, such as thinking and memory problems, mood and behavior changes. In addition, it causes imbalance, increases the risk of injury and falls, risk of stroke,heart disease, liver disease, cancer, to name a few. Heavy alcohol use is defined as: For men: drinking > 4 drinks on any day, or >14 drinks per week For women: drinking > 3 drinks on any day, or > 7 drinks per week One standard drink contains 15 grams of pure alcohol. One standard drink is defined as: (https://www.cdc.gov/alcohol/fact-sheets/moderate-drinking.htm). ABV: alcohol by volume. For more information on alcohol consumption and its health effects, visit the National [place] onAlcohol Abuse and Alcoholism (NIAAA) website at: https://www.niaaa.nih.gov/qnlnjywk-cagobhn-nspwpi Talk to your doctor if you are concerned about your drinking and would like help. You can also visit the NIAAA Alcohol Treatment Navigator website at: https://alcoholtreatment.niaaa.nih.gov/ Coffee consumption: In general, 2-3 cups of coffee may be beneficial for brain health. Refrain from 6 cups or more per day. Staying socially active and engaged also stimulates the brain and decreases the risk of dementia. documented in this encounter Progress Notes * Lida Berman LPN - 07/06/2024 3:20 PM EDT PRE - ADMINISTRATION DOCUMENTATION Are you experiencing any cold symptoms or fever? No Have you had Guillain-[place] Syndrome (an illness that causes paralysis) within the last 6 weeks? No Have you had the flu shot in the past? YES Have you ever had a reaction to the flu shot? No Lida Berman LPN, 07/06/2024 3:20 PM Immunization Administration Documentation Time Out Procedure Performed: Yes Patient Identified (Ask Name/Date of ): Yes Does the patient have a fever greater than 101 degrees today? No Patient allergic to latex? No C Stock: No Immunization(s) verified: Yes, Immunization Name: Flu, VIS Sheet(s) given: Yes Verified Side and Site: Yes Verified Shot(s) with Parent(s)/Patient: Yes * Lorenza Hardin PA-C - 07/06/2024 3:08 PM EDT HISTORY & PHYSICAL EXAMINATION - NEUROLOGY Name: Star Macario Date: 07/06/2024 Time: 8:44 AM Chief Complaint Patient presents with NEW PATIENT Medication Administration Flu and/or Pneumo Inj SUBJECTIVE: Star Macario is a 89 year old male with history of HTN, HLD, CKD3, prediabetes, gout who presents today for evaluation of memory loss. Presented to his PCP on 06/16/24 with memory concerns x 6-12 months. TSH normal, HgbA1c 6.3% Vitamin B12 257pg/mL; started supplement He presents today accompanied by his daughter. His daughter notes at least 1 year gradually declining memory. States he will often repeat himself. He is forgetful of conversations and appointments. ADLs are mostly intact however he still needs some reminders from his to shower. 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 Drives with no accidents or near misses, however his coworkers note he has pulled out onto [address] directly in front of other cars. Star does say that people drive "too fast" on [address] and cars are often right on his bumper. His manages his medications and finances. This is not new. Sleeps well. Appetite is good. Lives at home with his . No family history of dementia. No history of smoking or alcohol use. Denies hallucinations, personality changes, getting lost or disoriented, recent falls.. Allergies: Patient has no known allergies. 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 without prior episode (HCC) Exudative age-related macular degeneration, right eye, with active choroidal neovascularization (HCC) Past Medical History: Past Medical History: Diagnosis Date Aneurysm of ascending aorta without rupture (HCC) 08/08/2023 Degeneration of cervical intervertebral disc 2006 Gouty arthropathy 03/22/2022 HTN, goal below 140/90 01/30/2022 Other malignant neoplasm of skin, site unspecified Squamous Cell Carcinoma of Skin Prediabetes 08/28/2022 Presbyacusis 2006 Primary osteoarthritis of both knees 04/26/2022 Pulsatile tinnitus 2006 Pure hypercholesterolemia 01/30/2022 Seborrheic dermatitis, unspecified Seborrheic Dermatitis Sensorineural hearing loss, bilateral 2006 Status post total right knee replacement 09/10/2023 Current Outpatient Medications: Current Outpatient Medications Medication Sig Dispense Refill Aspirin 81 MG Tablet Take 1 Tablet by mouth in the morning. Diclofenac Sodium 1 % External Gel (Voltaren) Apply topically to affected area 2 g in the morning AND 2 g before bedtime. Apply to bilateral knees. 100 g 3 Acetaminophen 500 MG Oral Tablet (Tylenol) Take 2 Tablets by mouth every 6 hours as needed for Pain, Moderate. Furosemide 40 MG Oral Tablet (Lasix) Take 1 Tablet by mouth in the morning. 90 Tablet 1 Polyethylene Glycol 3350 17 GM/SCOOP Oral Powder (MiraLax) Take 17 g by mouth in the morning. Dissolve one heaping tablespoon in 8 ounces of water or juice.. 510 g 3 Lisinopril 10 MG Oral Tablet (Prinivil) Take 1 Tablet by mouth in the morning. 90 Tablet 3 Vitamin B12 500 MCG Oral Tablet Take 1 Tablet by mouth daily. Allopurinol 100 MG Oral Tablet (Zyloprim) Take 2 Tablets by mouth in the morning. 200 Tablet 2 Potassium Chloride ER 10 MEQ Oral Capsule Extended Release Take 1 Capsule by mouth in the morning. 90 Capsule 2 No current facility-administered medications for this visit. Family History: Family History Problem Relation Name Age of Onset No Past Hx Mother of natural causes No Past Hx Father accident No Known Problems Brother Seizures Son Eye Problems None Denies family hx of retinal disease Glaucoma None Denies family hx SOCIAL HISTORY: Social History Tobacco Use Smoking status: Never Passive exposure: Past Smokeless tobacco: Current Types: Snuff Tobacco comments: chew-one can a week Vaping Use Vaping status: Never Used Substance Use Topics Alcohol use: Yes Comment: rarely Drug use: No REVIEW OF SYSTEMS: As above OBJECTIVE: Physical Examination: BP 144/72 (BP Site: Left Arm, BP Position: Sitting, BP Cuff Size: Regular) | Pulse 91 | Temp 36.2 C (97.1 F) (Tympanic) | Resp 18 | Wt 109 kg (240 lb 6.4 oz) | SpO2 96% | BMI 35.50 kg/m | BSA 2.3 m General appearance: healthy, alert, no distress Physical Exam: Constitutional: Appearance normally developed,well nourished,no deformities,well groomed Head and face: normocephalic,atraumatic Respiratory: normal effort,clear to auscultation Cardiovascular: normal heart sounds and regular rhythm Psychiatric: normal judgement and insight,normal mood,normal affect NEUROLOGIC EXAMINATION: Answers questions appropriately. Slightly irritable. Speech is normal. Repeats story twice of people "driving too fast" on [address]. What was the mini mental exam score? 22 What is today's date? 0 What is today's year? 1 What is the month? 1 What day is today? 1 What season is it? 1 What is the name of this hospital/clinic? 0 What floor are we on? 1 What town/city are we in? 1 What county are we in? 1 What state are we in? 1 Did the patient repeat ball? 1 Did the patient repeat flag? 1 Did the patient repeat tree? 1 Did the patient respond D? 1 Did the patient respond L? 1 Did the patient respond R? 0 Did the patient respond O? 0 Did the patient respond W? 0 Did the patient respond ball? 0 Did the patient respond flag? 0 Did the patient respond tree? 0 Show the patient a watch and ask what it is. 1 Show the patient a pencil and ask what it is. 1 Ask the patient to repeat No ifs, ands or buts. 1 Patient takes paper in hand 1 Patient folds paper in half [address] paper on the floor 1 Hold card "Close eyes". Ask pt. to read and do what it says 1 Give pt. paper and ask to write a sentence. 1 Show pt. drawing of intersecting pentagons. Ask pt. to draw 1 Cranial Nerves: CN 2,3 - PERRL CN 3, 4, 6 - Extra-ocular Movements Intact,no nystagmus CN 5 - Facial sensation intact and equal bilaterally CN 7 - no facial assymetry CN 8 - hearing grossly intact CN 9, 10, 12 - tongue and uvula midline Coordination: normal to [id number], and rapid alternating movements Gait/station: Gait appears to be normal, no pathological gaits. Muscle exam: Arm Right Left Leg Right Left Deltoid 5/5 5/5 Iliopsoas 5/5 5/5 Biceps 5/5 5/5 Triceps 5/5 5/5 Reflexes: Biceps BR Patellar Achilles Plantars Right 2+ 2+ 0 0 Flexor Left 2+ 2+ 0 0 Flexor Sensation: Intact light touch, vibration and temperature LABORATORY: Results for orders placed or performed in visit on 01/13/24 CBC Result Value Ref Range WBC 5.52 4.00 - 10.80 K/uL RBC 4.63 4.50 - 5.25 M/uL HGB 14.3 14.0 - 16.8 g/dL HCT 44.6 40.0 - 48.4 % MCV 96.3 82.0 - 99.5 fL MCH 30.9 27.0 - 34.0 pg MCHC 32.1 32.0 - 36.0 g/dL RDW 13.7 11.5 - 15.5 % PLT 234 140 - 400 K/uL MPV 11.2 6.6 - 11.1 fL nRBCs 0 <=0 /100 WBCs Results for orders placed or performed in visit on 05/13/24 BASIC METABOLIC PANEL Result Value Ref Range BUN 26 (H) 6 - 20 mg/dL CREATININE 1.2 0.6 - 1.2 mg/dL EGFR 56 (L) >=60 mL/min SODIUM 139 135 - 146 mmol/L POTASSIUM 5.0 3.5 - 5.1 mmol/L CHLORIDE 100 98 - 107 mmol/L CO2 29 22 - 32 mmol/L ANION GAP 10 7 - 15 mmol/L GLUCOSE 86 70 - 120 mg/dL CALCIUM 9.4 8.4 - 10.2 mg/dL Results for orders placed or performed in visit on 01/13/24 LIPID PANEL WITH DIRECT LDL IF TG IS HIGH Result Value Ref Range Triglycerides 81 <=174 mg/dL Cholesterol 172 <200 mg/dL HDL Cholesterol 48 >39 mg/dL Non-HDL Cholesterol 124 <=159 mg/dL LDL Cholesterol 108 <=129 mg/dL Lab Results Component Value Date/Time HEMOGLOBIN A1C - [facility] 6.3 (H) 05/13/2024 10:13 AM HEMOGLOBIN A1C - [facility] 6.2 (H) 01/13/2024 08:31 AM HEMOGLOBIN A1C - [facility] 6.2 (H) 04/29/2023 04:02 PM Lab Results Component Value Date/Time TSH - [facility] 2.25 06/16/2024 08:42 AM Results for orders placed or performed in visit on 06/16/24 VITAMIN B12 Result Value Ref Range Vitamin B12 257 232 - 1,245 pg/mL Review of prior Studies: IMPRESSION: Star Macario is a 89 year old male with history of HTN, HLD, CKD3, prediabetes, gout who presents today for evaluation of memory changes. Clinical picture is consistent with mild dementia. He scores 22/30 on MMSE, although able to write a sentence and draw interlocking pentagons. 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 There is some concern about his driving. On examination he has steady gait, good strength and sensation. Not parkinsonian. ASSESSMENT/PLAN: - B12 supplementation per PCP - Additional labs today - Discussed MRI brain vs CT head however him/his daughter do not believe he will be able to lay flat for the test. - Discussed donepezil; he defers for now - Advised his daughter to drive with him, and consider retest at [facility]. May need to consider Driveable testing at his next visit. - Remain physically and mentally active Follow up in 3 months or sooner if needed. I spent a total of 40 minutes on the date of service in preparation, delivery, and documentation of the care provided to Star Macario. Adrian Aguilera DO available for direct consultation. Lorenza Hardin PA-C, Neurology [facility] [address] [facility] [address] 07/06/2024 4:05 PM documented in this encounter Nursing Notes * Lida Berman LPN - 07/06/2024 3:07 PM EDT Patient verified identity by spelling of last name and date. Chief Complaint Patient presents with NEW PATIENT documented in this encounter Plan of Treatment Upcoming Encounters Date Type Department Care Team (Late st Contact Info) Description 07/19/2024 8:00 AM EDT Office Visit Family Practice [address], [place] [address] [facility] [place] [address] Jam Loo DO [address] [facility] [place] [address] 08/11/2024 8:30 AM EDT Cardiac Studies Cardiac Studies, [facility] [address] [facility] [place] [address] 09/01/2024 4:00 PM EST Office Visit Family Practice [address] [facility], [place] [address] [facility] [place] [address] Jam Loo, [address] [facility] [place] [address] 10/21/2024 1:30 PM EST Office Visit Neurology [facility] [address] [facility] [place] [address] Lorenza Hardin PA-C [address] [facility] [place] [address] Pending Results Name Type Priority Associated Diagnoses Date /Time FOLIC ACID Lab Routine 07/06/2024 4:0 2 PM EDT 25-HYDROXY VITAMIN D Lab Routine MCI (mild cognitive impairment) 07/06/2024 4:02 PM EDT Scheduled Orders Name Type Priority Associated Diagnoses Orde r Schedule 25-HYDROXY VITAMIN D Lab Routine Expe cted: 07/06/2024, Expires: 07/06/2025 Health Maintenance Due Date Last Done Comments Adult Wellness Visit 2002 COVID-19 Vaccine ( season) 2024 10/10/2021, 12/27/2020, 11/29/2020 Depression Monitoring 09/10/2024 09/10/2023 CKD HGB USE SMARTSET 00680 01/12/202501/12, 04/29/2023, 04/29/2023, Additional history exists Albumin/Creatinine Ratio 05/13/2025 05/13/2024, 1106/2022 CKD PHOS USE SMARTSET 87431 05/13/202504/20, 04/29/2023, 03/22/2022 HbA1c 05/13/2025 05/13/2024, 12/19, 04/29/2023, Additional history exists DTap/Tdap Vaccines (2 - Td or Tdap) 03/12/2032 03/12/2022, 10/20/2012 Zoster Vaccines Completed 08/28/2022, 03/12/2022 Pneumococcal Vaccine: 65+ Years Completed 12/30/2022 Influenza Vaccine (FLU shot) Completed , 08/04/2023, 08/28/2022, Additional history exists HPV (Gardasil) Vaccine Aged Out No lo nger eligible based on patient's age to complete this topic Hepatitis B Vaccine Aged Out No longe r eligible based on patient's age to complete this topic MENINGOCOCCAL (MENACTRA/MENVEO) Aged Out No longer eligible based on patient's age to complete this topic documented as of this encounter Medical Devices Not on filedocumented as of this encounter Visit Diagnoses Diagnosis Mild dementia without behavioral disturbance, psychotic disturbance, mood disturbance, or anxiety, unspecified dementia type (HCC)- Primary Need for prophylactic vaccination and inoculation against influenza documented in this encounter Care Teams Etiquette Teacher Relationship Specialty Start Date End Date Jam Loo DO [address] [facility] [place] [address] PCP - General Internal Medicine 05/12/24 documented as of this encounter
--- OUTSIDE RECORDS SUMMARY | 2024-11-23 00:44 | External Medical Summary ---
Author Name Unknown Address Unknown Organization K01:[facility] [address] [place] [address] Laboratory Report Ordering Provider Test Date Status PILAR BRUNNER 07/06/2024 16:02:49 Final Observation Date Value Abnormality Reference (Units ) Status Folic Acid 07/06/2024 16:02:49 13.8 >4.5 (ng/ mL) Final Performing Location [facility] [address] [place] [address]
--- OUTSIDE RECORDS SUMMARY | 2024-11-23 00:44 | External Medical Summary ---
Author Name Unknown Address Unknown Organization K01:[facility] [address] [place] [address] Laboratory Report Ordering Provider Test Date Status YONY MAJOR 07/06/2024 16:02:49 Final Observation Date Value Abnormality Reference (Units ) Status Vitamin B12 07/06/2024 16:02:49 1276 Above high normal 232-1245 (pg/mL) Final Performing Location [facility] [address] [place] [address]
--- OUTSIDE RECORDS SUMMARY | 2024-11-23 00:44 | External Medical Summary | Summary of Care ---
Author Name Unknown Organization [facility] Address [address] [place] [address] Phone [phone] Care Team Providers Care Size Tester Name Role Phone Charleselaine Jam Cuadra DO Primary Care Provider [phone] Encounter Details Date Type Department Care Team (Late st Contact Info) Description 11/11/2024 Population Health External Data Unspecified Department Allergies No known active allergiesdocumented as of this encounter (statuses as of 11/11/2024) Medications Aspirin 81 MG Tablet Take 1 Tablet by mouth in the morning. Active Diclofenac Sodium 1 % External Gel (Voltaren) Apply topically to affected area 2 g in the morning AND 2 g before bedtime. Apply to bilateral knees. 100 g 3 2 Active Additional Information Patient not taking.Reported on 09/01/2024 Acetaminophen 500 MG Oral Tablet (Tylenol) Take 2 Tablets by mouth every 6 hours as needed for Pain, Moderate. 3 Active Furosemide 40 MG Oral Tablet (Lasix)Indicatio ns:Hypertensive kidney disease with stage 3a chronic kidney disease (HCC) Take 1 Tablet by mouth in the morning. 90 Tablet 1 4 Active Polyethylene Glycol 3350 17 GM/SCOOP Oral Powder (MiraLax)Indicat ions:Slow transit constipation Take 17 g by mouth in the morning. Dissolve one heaping tablespoon in 8 ounces of water or juice.. 510 g 3 4 Active Lisinopril 10 MG Oral Tablet (Prinivil)Indica tions:Hypertensi ve kidney disease with stage 3a chronic kidney disease (HCC) Take 1 Tablet by mouth in the morning. 90 Tablet 3 4 Active Vitamin B12 500 MCG Oral TabletIndication s:B12 deficiency Take 1 Tablet by mouth daily. 4 Active Allopurinol 100 MG Oral Tablet (Zyloprim)Indica tions:Gouty arthropathy Take 2 Tablets by mouth in the morning. 200 Tablet 2 4 Active Potassium Chloride ER 10 MEQ Oral Capsule Extended ReleaseIndicatio ns:Hypertensive kidney disease with stage 3a chronic kidney disease (HCC),HTN, goal below 140/90 Take 1 Capsule by mouth in the morning. 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 documented as of this encounter (statuses as of 11/11/2024) Resolved Problems Problem Noted Date Diagnosed Date Resolved Date ADVANCE DIRECTIVE INFORMATION 03/27/2007 08/23/2024 Overview (03/27/2007): Yes, Patient instructed to provide copy of advance directive for provider to review and to be scanned into Electronic Medical Record Seborrheic dermatitis 09/30/20022021 Overview (07/21/2017): ICD-10 update of inactive term Presbyacusis 01/30/2022 documented as of this encounter (statuses as of 11/11/2024) Immunizations Name Administration Dates Next Due COVID-19 mRNA, LNP-s, No Pre serve, 2-Dose Series (Moderna) 12/27/2020,11/29/2020 COVID-19, MRNA-LNP, PF, 30 M CG/0.3 mL, 12 YRS AND ABOVE, IM (PFIZER-Comirnaty) 09/01/2024 COVID-19, mRNA, LNP-s, PF, B ooster, 100mcg/0.5mg [...] Assigned at Male 01/30/2022 7:58 AM EDT Legal Sex Male 7:21 AM EST Gender Identity Male 01/30/2022 7:58 AM EDT Sexual Orientation Straight 01/30/2022 7: 58 AM EDT 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 Not on file Not on file Not on fi le documented as of this encounter Plan of Treatment Upcoming Encounters Date Type Department Care Team (Late st Contact Info) Description 12/14/2024 8:40 AM EST Office Visit Family Practice [address], [place] [address] [place] [address] Jam Loo DO [address] [place] [address] 08/15/2025 8:30 AM EDT Cardiac Studies Cardiac Studies, [facility] [address] [place] [address] Health Maintenance Due Date Last Done Comments Adult Wellness Visit 2002 Depression Monitoring 09/10/2024 09/10/2023 CKD HGB USE SMARTSET 02641 01/12/202501/12, 04/29/2023, 04/29/2023, Additional history exists Albumin/Creatinine Ratio 05/13/2025 05/13/2024, 06/2022 CKD PHOS USE SMARTSET 73978 05/13/202504/20, 04/29/2023, 03/22/2022 HbA1c 05/13/2025 05/13/2024, 12/19, 04/29/2023, Additional history exists DTap/Tdap Vaccines (2 - Td or Tdap) 03/12/2032 03/12/2022, 10/20/2012 Zoster Vaccines Completed 08/28/2022, 03/12/2022 Pneumococcal Vaccine: 50+ Years Completed 12/30/2022 Influenza Vaccine (FLU shot) Completed , 08/04/2023, 08/28/2022, Additional history exists COVID-19 Vaccine Completed 09/01/2024, , 12/27/2020, Additional history exists HPV (Gardasil) Vaccine Aged [...] filedocumented as of this encounter Care Teams Size Tester Relationship Specialty Start Date End Date [facility] [address] [facility] [address] PCP - General Internal Medicine 05/12/24 documented as of this encounter
--- OUTSIDE RECORDS SUMMARY | 2024-11-23 00:44 | External Medical Summary | Summary of Care ---
Author Name Unknown Organization [facility] Address [address] [place] [address] Phone [phone] Care Team Providers Care Supervisor Floor Assembly Name Role Phone Jam Loo DO Primary Care Provider [phone] Reason for Visit * Reason Comments Follow Up Encounter Details Date Type Department Care Team (Late st Contact Info) Description 07/19/2024 8:00 AM EDT Office Visit Family Practice [address] [place] [address] [place] [address] Jam Loo DO [address] [place] [address] Hypertensive kidney disease with stage 3a chronic kidney disease (HCC)*; Pure hypercholesterolemia; Gouty arthropathy; Prediabetes; Aneurysm of ascending aorta without rupture (HCC); Status post total right knee replacement; Memory loss Allergies No known active allergiesdocumented as of this encounter (statuses as of 07/19/2024) Medications Medication Sig Dispensed Refills Start Date [...] as of this encounter (statuses as of 07/19/2024) Active Problems Problem Noted Date Diagnosed Date [...] as of this encounter (statuses as of 07/19/2024) Resolved Problems Problem Noted Date Diagnosed Date Resolved Date Seborrheic dermatitis 09/30/20022021 Overview: ICD-10 update of inactive term Presbyacusis 01/30/2022 documented as of this encounter (statuses as of 07/19/2024) Immunizations Name Administration Dates Next Due COVID-19 [...] Sign Reading Time Taken Comments Blood Pressure 140/76 07/19/2024 8:00 AM EDT Pulse 68 07/19/2024 8:00 AM EDT Temperature 35.9 C (96.7 F) 07/19/2024 8:00 AM ED T Respiratory Rate 16 07/19/2024 8:00 AM EDT Oxygen Saturation - - Inhaled Oxygen Concentration - - Weight 111.4 kg (245 lb 8 oz) 07/19/2024 8:00 AM EDT Height 175.3 cm (5' 9") 07/19/2024 8:00 AM EDT Body Mass Index 36.25 07/19/2024 8:00 AM EDT documented in this encounter Progress Notes * Jam Loo, DO - 07/19/2024 8:33 AM EDT SUBJECTIVE: Star Macario is a 89 year old male. Chief Complaint Patient presents with Follow Up HPI: Patient is an 89 year old male with a history of HTN, Hyperlipidemia, V+CKD stage III, Prediabetes,Gout, right knee replacement, mild dementia, and leg edema that is seen for follow up. No chest pain or shortness of breath is present. Leg swelling is stable. Memory loss is stable. He is following with Neurology for memory loss. Patient Active Problem List Diagnosis Malignant neoplasm [...] right eye, with active choroidal neovascularization (HCC) Current Outpatient Medications Medication Sig Dispense Refill Aspirin 81 MG Tablet Take 1 Tablet by mouth in the morning. Acetaminophen 500 MG Oral Tablet (Tylenol) Take 2 Tablets by mouth every 6 hours as needed for Pain, Moderate. Furosemide 40 MG Oral Tablet (Lasix) Take 1 Tablet by mouth in the morning. 90 Tablet 1 Lisinopril 10 MG Oral Tablet (Prinivil) Take [...] mouth in the morning. 90 Capsule 2 Diclofenac Sodium 1 % External Gel (Voltaren) Apply topically to affected area 2 g in the morning AND 2 g before bedtime. Apply to bilateral knees. 100 g 3 Polyethylene Glycol 3350 17 GM/SCOOP Oral Powder (MiraLax) Take 17 g by mouth in the morning. Dissolve one heaping tablespoon in 8 ounces of water or juice.. 510 g 3 No current facility-administered medications for this visit. The patient's medication list was reviewed and updated as needed. Past Medical History: Diagnosis Date Aneurysm of ascending aorta without rupture (HCC) 08/08/2023 Degeneration of cervical intervertebral disc 2005 Gouty arthropathy 03/22/2022 HTN, goal below 140/90 01/30/2022 Other malignant neoplasm of skin, site unspecified Squamous Cell Carcinoma of Skin Prediabetes 08/28/2022 Presbyacusis 2006 Primary osteoarthritis of both knees 04/26/2022 Pulsatile tinnitus 2006 Pure hypercholesterolemia 01/30/2022 Seborrheic dermatitis, unspecified Seborrheic Dermatitis Sensorineural hearing loss, bilateral 2005 Status post total right knee replacement 09/10/2023 Past Surgical History: Procedure Laterality Date CO ARTHRP KNE CONDYLE&PLATU MEDIAL&LAT COMPARTMENTS Right 08/27/2023 REMOVAL OF APPENDIX age 12-14 REMOVAL OF KIDNEY STONE 2006 REMOVE CATARACT, INSERT LENS PROSTH Bilateral Dr. Nelson REPAIR INITIAL INGUINAL HERNIA REDUCIBLE AGE 5 OR MORE Repair initial hernia ,left inguinal hernia SABIHAS Dr Galindo 12/23/11 Review of patient's allergies indicates: No Known Allergies Review of Systems Constitutional: Negative for appetite change, fatigue and unexpected weight change. Respiratory: Negative for cough, shortness of breath and wheezing. Cardiovascular: Positive for leg swelling. Negative for chest pain and palpitations. Gastrointestinal: Negative for abdominal pain, blood in stool, constipation, diarrhea, nausea and vomiting. Genitourinary: Negative for dysuria and hematuria. Musculoskeletal: Negative for back pain and gait problem. Neurological: Negative for dizziness, syncope and headaches. Psychiatric/Behavioral: Negative for confusion, decreased concentration and sleep disturbance. Memory loss OBJECTIVE: BP 140/76 | Pulse 68 | Temp 35.9 C (96.7 F) | Resp 16 | Ht 1.753 m (5' 9") | Wt 111.4 kg (245 lb 8 oz) | BMI 36.25 kg/m | BSA 2.33 m Physical Exam [...] no abdominal tenderness. Musculoskeletal: Right lower leg: Edema present. Left lower leg: Edema present. Comments: Stable bilateral leg edema Neurological: Mental Status: He is alert and oriented to person, place, and time. Mental status is at baseline. Motor: No weakness. Gait: Gait normal. Comments: MMSE 21/30 Psychiatric: Mood and Affect: Mood normal. Behavior: Behavior normal. Thought Content: Thought content normal. Results for orders placed or performed in visit on 07/06/24 FOLIC ACID Result Value Ref Range Folic Acid 13.8 >4.5 ng/mL Component Latest Ref Rng 05/13/2024 06/16/2024 07/06/2024 BUN 6 - 20 mg/dL 26 (H) CREATININE 0.6 - 1.2 mg/dL 1.2 EGFR >=60 mL/min 56 (L) SODIUM 135 - 146 mmol/L 139 POTASSIUM 3.5 - 5.1 mmol/L 5.0 CHLORIDE 98 - 107 mmol/L 100 CO2 22 - 32 mmol/L 29 ANION GAP 7 - 15 mmol/L 10 GLUCOSE 70 - 120 mg/dL 86 CALCIUM 8.4 - 10.2 mg/dL 9.4 Albumin, Random Urine mg/dL <1.20 Creatinine, Random Urine mg/dL 155 Albumin / Creatinine Ratio, Urine <30 mg/g Creat <8 Hemoglobin A1C 4.0 - 5.6 % 6.3 (H) Estimated Average Glucose <126 mg/dL 134 (H) Phosphorus 2.5 - 4.8 mg/dL 3.4 TSH 0.27 - 4.20 uIU/mL 2.25 Vitamin B12 232 - 1,245 pg/mL 257 1,276 (H) Folic Acid >4.5 ng/mL 13.8 25-Hydroxy Vitamin D >19 ng/mL 39 Legend: (H) High (L) Low PLAN AND ASSESSMENT: Hypertensive kidney disease with stage 3a chronic kidney disease (HCC) (Primary) Continue Lisinopril, Furosemide Pure hypercholesterolemia Gouty arthropathy Continue Allopurinol Prediabetes Repeat Hgab1c in 2 months Aneurysm of ascending aorta without rupture (HCC) Echo scheduled 08/11/2024 Status post total right knee replacement Memory loss - MINI-MENTAL QUESTIONNAIRE SCAN (MMSE) OP Continue to follow with Neurology Follow Up: Return in about 2 months (around 09/18/2024), or if symptoms worsen or fail to improve. Jam Loo DO 8:33 AM 07/19/2024 documented in this encounter Nursing Notes * Josiane Slater LPN - 07/19/2024 7:59 AM EDT Patient presents for follow up, voices no complaints. documented in this encounter Plan of Treatment Upcoming Encounters Date Type Department Care Team (Late st Contact Info) Description 08/11/2024 8:30 AM EDT Card[facility] Studies [facility] [address] [facility] [address] 09/01/2024 4:00 PM EST Office Visit Family Practice [address] [place] [address] [address] [place] [address] Jam Loo DO [address] [place] [address] 09/20/2024 8:00 AM EST Office Visit Family Practice [address] [facility] [address] [place] [address] Jam Loo DO [address] [place] [address] 10/21/2024 1:30 PM EST Office Visit Neurology [facility] [address] [facility] [place] [address] Lorenza Hardin PA-C [address] [place] [address] Health Maintenance Due Date Last Done Comments Adult Wellness Visit 2002 COVID-19 Vaccine ( season) 2024 10/10/2021, 12/27/2020, 11/29/2020 Postponed from 06/20/2024 (Patient Declined After Education) Depression Monitoring 09/10/2024 09/10/2023 CKD HGB USE SMARTSET 60351 01/12/202501/12, 04/29/2023, 04/29/2023, Additional history exists Albumin/Creatinine Ratio 05/13/2025 05/13/2024, 1106/2022 CKD PHOS USE SMARTSET 61673 05/13/202504/20, 04/29/2023, 03/22/2022 HbA1c 05/13/2025 05/13/2024, 12/19, 04/29/2023, Additional history exists DTap/Tdap Vaccines (2 - Td or Tdap) 03/12/2032 03/12/2022, 10/20/2012 Zoster Vaccines Completed 08/28/2022, 03/12/2022 Pneumococcal Vaccine: 65+ Years Completed 12/30/2022 Influenza Vaccine (FLU shot) Completed 07/06/2024, 08/04/2023, 08/28/2022, Additional history exists HPV (Gardasil) [...] stage 3a chronic kidney disease (HCC)- Primary Pure hypercholesterolemia Gouty arthropathy Gouty arthropathy, unspecified Prediabetes Other abnormal glucose Aneurysm of ascending aorta without rupture (HCC) Status post total right knee replacement Memory loss documented in this encounter Care Teams Supervisor Floor Assembly Relationship Specialty Start Date End Date Jam Loo DO [address] [place] [address] PCP - General Internal Medicine 05/12/24 documented as of this encounter
--- OUTSIDE RECORDS SUMMARY | 2024-11-23 00:44 | External Medical Summary | Summary of Care ---
Author Name Unknown Organization [facility] Address [address] [place] [address] Phone [phone] Care Team Providers Care Roof Bolter Name Role Phone Jam Loo DO Primary Care Provider [phone] Reason for Visit * Reason Comments Follow Up Encounter Details Date Type Department Care Team (Late st Contact Info) Description 09/01/2024 4:00 PM EST Office Visit Family Practice [address], [place] [address] [place] [address] Jam Loo DO [address] [place] [address] Hypertensive kidney disease with stage 3a chronic kidney disease (HCC)*; Prediabetes; Gouty arthropathy; Pure hypercholesterolemia; 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 behavioral disturbance, psychotic disturbance, mood disturbance, or anxiety (HCC); Aneurysm of ascending aorta without rupture (HCC); Status post total right knee replacement; Current moderate episode of major depressive disorder without prior episode (HCC); Need for COVID-19 vaccine Allergies No known active allergiesdocumented as of this encounter (statuses as of 09/02/2024) Medications Aspirin 81 MG Tablet Take 1 [...] as of this encounter (statuses as of 09/02/2024) Active Problems Problem Noted Date Diagnosed Date [...] as of this encounter (statuses as of 09/02/2024) Resolved Problems Problem Noted Date Diagnosed Date Resolved Date ADVANCE DIRECTIVE INFORMATION 03/27/2007 08/23/2024 Overview (03/27/2007): Yes, Patient instructed to provide copy of advance directive for provider to review and to be scanned into Electronic Medical Record Seborrheic dermatitis 09/30/20022021 Overview (07/21/2017): ICD-10 update of inactive term Presbyacusis 01/30/2022 documented as of this encounter (statuses as of 09/02/2024) Immunizations Name Administration Dates Next Due COVID-19 [...] 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 Not on file Not on fi le documented as of this encounter Last Filed Vital Signs Vital Sign Reading Time Taken Comments Blood Pressure 142/80 09/01/2024 4:07 PM EST Pulse 63 09/01/2024 4:07 PM EST Temperature 36.4 C (97.5 F) 09/01/2024 4:07 PM ES T Respiratory Rate 14 09/01/2024 4:07 PM EST Oxygen Saturation 97% 09/01/2024 4:07 PM EST Inhaled Oxygen Concentration - - Weight 114.1 kg (251 lb 8 oz) 09/01/2024 4:07 PM EST Height 175.3 cm (5' 9") 09/01/2024 4:07 PM EST Body Mass Index 37.14 09/01/2024 4:07 PM EST documented in this encounter Progress Notes * Jam Loo, DO - 09/02/2024 9:27 AM EST SUBJECTIVE: Star Macario is a 89 year old male. Chief Complaint Patient presents with Follow Up HPI: Patient is an 89 year old male with a history of HTN, Hyperlipidemia, CKD stage III, Prediabetes, Gout, right knee replacement, mild dementia, and leg edema that is seen for follow up. No chest pain or shortness of breath are present. Weight is stable and appetite is good. Bilateral leg swelling isunchanged. 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 Apply to bilateral knees. (Patient not taking: Reported on 09/01/2024) 100 g 3 No current facility-administered medications for [...] 09/10/2023 Past Surgical History: Procedure Laterality Date [place] ARTHRP KNE CONDYLE&PLATU MEDIAL&LAT COMPARTMENTS Right 08/27/2023 [...] appetite change, fatigue and unexpected weight change. HENT: Negative for congestion, sore throat and trouble swallowing. Respiratory: Negative for cough, shortness of breath and wheezing. Cardiovascular: Positive for leg swelling. Negative for chest pain and palpitations. Gastrointestinal: Negative for abdominal pain, blood in stool, constipation, diarrhea, nausea and vomiting. Genitourinary: Negative for dysuria, frequency and hematuria. Musculoskeletal: Negative for back pain and gait problem. Neurological: Negative for dizziness, syncope and headaches. Psychiatric/Behavioral: Negative for confusion, decreased concentration and sleep disturbance. OBJECTIVE: BP 142/80 (BP Site: Left Arm, BP Position: Sitting, BP Cuff Size: Large) | Pulse 63 | Temp 36.4 C(97.5 F) (Tympanic) | Resp 14 | Ht 1.753 m (5' 9") | Wt 114.1 kg (251 lb 8 oz) | SpO2 97% | BMI 37.14 kg/m | BSA 2.36 m Physical Exam Vitals and nursing note [...] Edema present. Left lower leg: Edema present. Neurological: Mental Status: He is alert. Mental status is at baseline. Motor: No weakness. Gait: Gait normal. Psychiatric: Cognition and Memory: Cognition is impaired. Memory is impaired. Component Latest Ref Rng 05/13/2024 06/16/2024 07/06/2024 [...] 86 CALCIUM 8.4 - 10.2 mg/dL 9.4 TSH 0.27 - 4.20 uIU/mL 2.25 Vitamin B12 232 - 1,245 pg/mL 257 1,276 (H) Folic Acid >4.5 ng/mL 13.8 25-Hydroxy Vitamin D >19 ng/mL 39 Legend: (H) High (L) Low PLAN AND ASSESSMENT: Hypertensive kidney disease with stage 3a chronic kidney disease (HCC) (Primary) Continue Lisinopril and Furosemide Prediabetes Gouty arthropathy Continue Allopurinol Pure hypercholesterolemia 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 behavioral disturbance, psychotic disturbance, mood disturbance, or anxiety (HCC) MMSE 21/30 Continue to follow Aneurysm of ascending aorta without rupture (HCC) 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 Jam Loo DO 9:27 AM 09/02/2024 documented in this encounter Nursing Notes * Asha Burciaga LPN - 09/01/2024 4:17 PM EST Pre-Administration Time Out Procedure Performed: Yes Patient Identified (Ask Name/Date of ): Yes Does the patient have a fever greater than 101 degrees today? No Patient allergic to latex? No Has the patient ever fainted after receiving an injection? No VFC Stock: No Immunization(s) verified: Yes, Immunization Name: COVID, VIS Sheet(s) given: Yes Verified Side and Site: Yes Verified Shot(s) with Parent(s)/Patient: Yes * Asha Burciaga LPN - 09/01/2024 4:05 PM EST Patient here for routine follow up visit. States he did fall at [employer] [employer] - no injury. documented in this encounter Plan of Treatment Upcoming Encounters Date Type Department Care Team (Late st Contact Info) Description 10/21/2024 1:30 PM EST Office Visit Neurology [facility] 200 [place] [address] Lorenza Hardin PA-C [address] [facility] [place] [address] 12/14/2024 8:40 AM EST Office Visit Family Practice [address] [place] [address] 293 [place] [address] Jam Loo DO 293 [facility] [address] 08/15/2025 8:30 AM EDT Cardiac Studies Cardiac Studies, [facility] [address] [facility] [place] [address] Health Maintenance Due Date Last Done Comments Adult Wellness Visit 2002 Depression Monitoring 09/10/2024 09/10/2023 CKD HGB USE SMARTSET 56951 01/12/202501/12, 04/29/2023, 04/29/2023, Additional history exists Albumin/Creatinine Ratio 05/13/2025 05/13/2024, 1106/2022 CKD PHOS USE SMARTSET 27406 05/13/202504/20, 04/29/2023, 03/22/2022 HbA1c 05/13/2025 05/13/2024, 12/19, [...] disease (HCC)- Primary Prediabetes Other abnormal glucose Gouty arthropathy Gouty arthropathy, unspecified Pure hypercholesterolemia 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 behavioral disturbance, psychotic disturbance, mood disturbance, or anxiety (HCC) Aneurysm of ascending aorta without rupture (HCC) 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
--- OUTSIDE RECORDS SUMMARY | 2024-11-23 00:44 | External Medical Summary | Summary of Care ---
Author Name Unknown Organization [facility] Address [address] [place] [address] Phone [phone] Care Team Providers Care Shipping Lead Name Role Phone Jam Loo DO Primary Care Provider [phone] Reason for Visit * Reason Comments Outpatient Testing Encounter Details Date Type Department Care Team (Late st Contact Info) Description 07/06/2024 2:20 PM EDT Laboratory Laboratory [facility] [address] [place] [phone] [place], [address] [place] [address] B12 deficiency; MCI (mild cognitive impairment) Allergies No known active allergiesdocumented as of [...] 09/10/2023 Does the household have a re lar source of income? (Household - for ages [...] on file documented as of this encounter Plan of Treatment Upcoming Encounters Date Type Department Care Team (Late st Contact Info) Description 07/19/2024 8:00 AM EDT Office Visit Family Practice [address], [place] 293 [place] [address] Jam Loo, DO 293 [facility] [place] [address] 08/11/2024 8:30 AM EDT Cardiac Studies Cardiac Studies, [facility] [address] [place] [address] 09/01/2024 4:00 PM EST Office Visit Family Practice [address] [place] [address], [place] [address] [place] [address] Jam Loo DO 293 [facility] [place] [address] 10/21/2024 1:30 PM EST Office Visit Neurology [facility] 200 [place] [address] Lorenza Hardin PA-C [address] [facility] [place] [address] Pending Results Name Type Priority Associated Diagnoses Date /Time VITAMIN B12 Lab Routine B12 deficiency 07/06/2024 4:02 PM EDT 25-HYDROXY VITAMIN D Lab Routine MCI (mild cognitive impairment) 07/06/2024 4:02 PM EDT Health Maintenance Due Date Last Done Comments Adult Wellness Visit 2002 COVID-19 Vaccine ( season) 2024 10/10/2021, 12/27/2020, 11/29/2020 Depression Monitoring 09/10/2024 09/10/2023 CKD HGB USE SMARTSET 30118 01/12/202501/12, 04/29/2023, 04/29/2023, Additional history exists Albumin/Creatinine Ratio 05/13/2025 05/13/2024, 06/2022 CKD PHOS USE SMARTSET 99958 05/13/202504/20, 04/29/2023, 03/22/2022 HbA1c 05/13/2025 05/13/2024, 12/19, [...] as of this encounter Visit Diagnoses Diagnosis B12 deficiency Other B-complex deficiencies MCI (mild cognitive impairment) Mild cognitive impairment, so stated documented in this encounter Care Teams Shipping Lead Relationship Specialty Start Date End Date Jam Loo DO 293 [facility] [place] [address] PCP - General Internal Medicine 05/12/24 documented as of this encounter
--- OUTSIDE RECORDS SUMMARY | 2024-11-23 00:44 | External Medical Summary | Summary of Care ---
Author Name Unknown Organization [facility] Address [address] [place] [address] Phone [phone] Care Team Providers Care Equipment Services Associate Name Role Phone Jam Loo DO Primary Care Provider [phone] Reason for Referral * Precert (Diagnostic Medical) (Within 10 days (routine)) - Authorized Specialty Diagnoses / Procedures Referred By Contac t Referred To Contact Cardiac Studies Diagnoses Aneurysm of ascending aorta without rupture (HCC) Procedures ECHO, COMPLETE (2D), TRANS-THORACIC Jam Loo DO [address] [place] [address] Referral ID Status Reason Start Date Expiration Date V isits Requested Visits Authorized [id number] Authorized Precert 08/12/2025 [id number] Encounter Details Date Type Department Care Team (Late st Contact Info) Description 08/12/2024 Telephone Family Practice [address], [place] [address] [place] [phone] Jam Loo DO [address] [place], [place] [phone] Allergies No known active allergiesdocumented as of this encounter (statuses as of 08/12/2024) Medications Medication Sig Dispensed Refills Start Date [...] as of this encounter (statuses as of 08/12/2024) Active Problems Problem Noted Date Diagnosed Date [...] as of this encounter (statuses as of 08/12/2024) Resolved Problems Problem Noted Date Diagnosed Date Resolved Date Seborrheic dermatitis 09/30/20022021 Overview: ICD-10 update of inactive term Presbyacusis 01/30/2022 documented as of this encounter (statuses as of 08/12/2024) Immunizations Name Administration Dates Next Due COVID-19 [...] Telephone Encounter - Verenice Stephens OSA - 08/12/2024 2:21 PM EDT Appt scheduled, pt will be contacted closer to that date to remind of. * Telephone Encounter - Josiane Slater LPN - 08/12/2024 2:17 PM EDT Patient is aware and will comply. Please call and schedule for one year * Telephone Encounter - Josiane Slater LPN - 08/12/2024 2:16 PM EDT ----- Message from Jam Loo DO sent at 08/12/2024 9:32 AM EDT ----- Echo is stable. Repeat Echo in 1 year to follow Aneurysm of thoracic aorta. documented in this encounter Plan of Treatment Upcoming Encounters Date Type Department Care Team (Late st Contact Info) Description 09/01/2024 4:00 PM EST Office Visit Family Practice 65 [facility] 293 [place] [address] Jam Loo DO 293 [place] [address] 09/20/2024 8:00 AM EST Office Visit Family Practice 65 [facility] 293 [facility] [place] [address] Jam Loo DO 293 [place] [address] 10/21/2024 1:30 PM EST Office Visit Neurology [facility] 200 [place] [address] Lorenza Hardin PA-C [address] [place] [address] 08/15/2025 8:30 AM EDT Cardiac Studies Cardiac Studies, [facility] [address] [place] [address] Scheduled Orders Name Type Priority Associated Diagnoses Orde r Schedule ECHO, COMPLETE (2D), TRANS-THORACIC Echocardiology Routine Aneurysm of ascending aorta without rupture (HCC) Expected: 08/12/2025, Expires: 09/12/2026 Health Maintenance Due Date Last Done Comments Adult Wellness Visit 2002 COVID-19 Vaccine ( season) 2024 10/10/2021, 12/27/2020, 11/29/2020 Depression Monitoring 09/10/2024 09/10/2023 CKD HGB USE SMARTSET 74677 01/12/202501/12, 04/29/2023, 04/29/2023, Additional history exists Albumin/Creatinine Ratio 05/13/2025 05/13/2024, 11/0 06/2022 CKD PHOS USE SMARTSET 01330 05/13/20252 02/2024, 04/29/2023, 03/22/2022 HbA1c 05/13/2025 05/13/2024, 12/19, 04/29/2023, [...] as of this encounter Visit Diagnoses Diagnosis Aneurysm of ascending aorta without rupture (HCC)- Primary documented in this encounter Care Teams Equipment Services Associate Relationship Specialty Start Date End Date Jam Loo DO 293 [facility] [place] [address] PCP - General Internal Medicine 05/12/24 documented as of this encounter
--- OUTSIDE RECORDS SUMMARY | 2024-11-23 00:44 | External Medical Summary | Summary of Care ---
Author Name Unknown Organization [facility] Address [address] [place] [address] Phone [phone] Care Team Providers Care Reimbursement Director Name Role Phone Jam Loo DO Primary Care Provider [phone] Reason for Visit * Reason Onset Date Comments Test Results 07/07/202407/07 Encounter Details Date Type Department Care Team (Late st Contact Info) Description 07/07/2024 Telephone Family Practice [address], [place] [address] [place] [phone] Jam Loo DO [address] [place] [address] Test Results (07/07) Allergies No known active allergiesdocumented as of this encounter (statuses as of 07/07/2024) Medications Medication Sig Dispensed Refills Start Date [...] as of this encounter (statuses as of 07/07/2024) Active Problems Problem Noted Date Diagnosed Date [...] as of this encounter (statuses as of 07/07/2024) Resolved Problems Problem Noted Date Diagnosed Date Resolved Date Seborrheic dermatitis 09/30/20022021 Overview: ICD-10 update of inactive term Presbyacusis 01/30/2022 documented as of this encounter (statuses as of 07/07/2024) Immunizations Name Administration Dates Next Due COVID-19 [...] No 09/10/2023 Does the household have a [facility] source of income? (Household - for ages [...] encounter Miscellaneous Notes * Telephone Encounter - Josiane Slater LPN - 07/07/2024 12:57 PM EDT Letter has been sent * Telephone Encounter - Asha Burciaga LPN - 07/07/2024 11:45 AM EDT Call placed to patient - no answer. Message left to return call to [phone]. * Telephone Encounter - Asha Burciaga LPN - 07/07/2024 11:44 AM EDT ----- Message from Jam Loo DO sent at 07/07/2024 7:54 AM EDT ----- B12 level is good. Continue current medications. documented in this encounter Plan of Treatment Upcoming Encounters Date Type Department Care Team (Late st Contact Info) Description 07/19/2024 8:00 AM EDT Office Visit Family [address] 293 [facility] [place] [address] Jam Loo DO [address] [place] [address] 08/11/2024 8:30 AM EDT Cardiac Studies Cardiac Studies, [facility] 132 [facility] [place] [address] 09/01/2024 4:00 PM EST Office Visit [address] 293 [facility] [place] [address] Jam Loo DO [address] [place] [address] 10/21/2024 1:30 PM EST Office Visit [facility] [address] Lorenza Hardin PA-C [address] [place] [address] Health Maintenance Due Date Last Done Comments Adult Wellness Visit 2002 COVID-19 Vaccine ( season) 2024 10/10/2021, 12/27/2020, 11/29/2020 Depression Monitoring 09/10/2024 09/10/2023 CKD HGB USE SMARTSET 39635 01/12/202501/12, 04/29/2023, 04/29/2023, Additional history exists Albumin/Creatinine Ratio 05/13/2025 05/13/2024, 11/0 06/2022 CKD PHOS USE SMARTSET 95494 05/13/2025 0702/2024, 04/29/2023, 03/22/2022 HbA1c 05/13/2025 05/13/2024, 12/19, 04/29/2023, [...] filedocumented as of this encounter Care Teams Reimbursement Director Relationship Specialty Start Date End Date Jam Loo DO [address] [facility] [place] [place] [address] PCP - General Internal Medicine 05/12/24 documented as of this encounter
--- OUTSIDE RECORDS SUMMARY | 2024-11-23 00:45 | External Medical Summary | Summary of Care ---
Author Name Unknown Organization [facility] Address [address] [place] [address] Phone [phone] Care Team Providers Care Kiln Tester Name Role Phone Moriah Loo DO Primary Care Provider [phone] Reason for Visit * Reason Onset Date Comments Medication Refill 07/05/2024 Encounter Details Date Type Department Care Team (Late st Contact Info) Description 07/05/2024 Refill Family Practice [address], [place] [address] [place] [phone] Moriah Loo DO [address] [place], [place] [phone] Gouty arthropathy; Hypertensive kidney disease with stage 3a chronic kidney disease (HCC); HTN, goal below 140/90 Allergies No known [...] 08/04/2023 Active Furosemide 40 MG Oral Tablet (Lasix)Indications :Hypertensive kidney disease with stage 3a chronic kidney disease (HCC) Take 1 Tablet by mouth in the morning. 90 Tablet 1 04/13/2024 Active Polyethylene Glycol 3350 17 GM/SCOOP Oral Powder (MiraLax)Indicatio ns:Slow transit constipation Take 17 g by mouth in the morning. Dissolve one heaping tablespoon in 8 ounces of water or juice.. 510 g 3 06/16/2024 Active Lisinopril 10 MG Oral Tablet (Prinivil)Indicati ons:Hypertensive kidney disease with stage 3a chronic kidney disease (HCC) Take 1 Tablet by mouth in the morning. 90 Tablet 3 06/16/2024 Active Vitamin B12 500 MCG Oral TabletIndications: B12 deficiency Take 1 Tablet by mouth daily. 06/17/2024 Active Allopurinol 100 MG Oral Tablet (Zyloprim)Indicati ons:Gouty arthropathy Take 2 Tablets by mouth in the morning. 200 Tablet 2 07/06/2024 Active Potassium Chloride ER 10 MEQ Oral Capsule Extended ReleaseIndications :Hypertensive kidney disease with stage 3a chronic kidney disease (HCC),HTN, goal below 140/90 Take 1 Capsule by mouth in the morning. 90 Capsule 2 07/06/2024 Active Allopurinol 100 MG Oral Tablet (Zyloprim)Indicati ons:Gouty arthropathy Take 2 Tablets by mouth in the morning. 200 Tablet 3 04/01/2023 4 Discontinue d(Refill) Potassium Chloride ER 10 MEQ Oral Capsule Extended ReleaseIndications :Hypertensive kidney disease with stage 3a chronic kidney disease (HCC),HTN, goal below 140/90 Take 1 Capsule by mouth in the morning. 90 Capsule 3 04/29/2023 4 Discontinue d(Refill) documented as of this encounter [...] encounter Miscellaneous Notes * Telephone Encounter - Monica Staples [facility] - 07/06/2024 9:59 AM EDTSigned Prescriptions: Disp Refills Allopurinol 100 MG Oral Tablet (Zyloprim) 200 Ta*2 Sig: Take 2 Tablets by mouth in the morning. Authorizing Provider: MORIAH LOO Ordering User: MONICA STAPLES Potassium Chloride ER 10 MEQ Oral Capsule *90 Cap*2 Sig: Take 1 Capsule by mouth in the morning. Authorizing Provider: MORIAH LOO Ordering User: MONICA STAPLES ------- * Telephone Encounter - Asha Lewis CPhT - 07/05/2024 8:06 AM EDT Spouse calling to make sure she said Allopurinol too for a refill. Thank you, Asha Lewis CPhT Outdoor Studies Professor [facility] 07/05/2024,8:06 AM * Telephone Encounter - Katie Dumont PHARM Tech - 07/05/2024 8:02 AM EDT Did you pend patient's preferred pharmacy and medication before forwarding?yes Pharmacy: [facility] [address] [address] [place] [place] Pending Prescriptions: Disp Refills Allopurinol 100 MG Oral Tablet (Zyloprim) 200 Ta*3 Sig: Take 2 Tablets by mouth in the morning. Potassium Chloride ER 10 MEQ Oral Capsule*90 Cap*3 Sig: Take 1 Capsule by mouth in the morning. Last Visit: 06/16/2024 (in office), Visit date not found (telemedicine) Next Visit: 07/19/2024 If no future appointments scheduled, and last appointment is greater than a year ago, please schedule patient for a follow-up appointment Last date the medication was ordered: 04-01-23 Is this request for a controlled substance?No Urine Drug Screen:No results found for this or any previous visit. Patient Phone Numbers Labs: Lab Results Component Value Date/Time CREAT 1.2 05/13/2024 10:13 AM CREAT 1.49 (A) 03/19/2021 12:00 AM CREAT 0.8 12/12/2011 10:35 AM POTASSIUM 5.0 05/13/2024 10:13 AM POTASSIUM 4.3 03/19/2021 12:00 AM POTASSIUM 4.4 12/12/2011 10:35 AM TSH 2.25 06/16/2024 08:42 AM LDL 108 01/13/2024 08:31 AM LDL 113 11/23/2019 12:00 AM ALT 14 01/13/2024 08:31 AM ALT 11 12/12/2011 10:35 AM HGBA1C 6.3 (H) 05/13/2024 10:13 AM documented in this encounter Plan of Treatment Upcoming Encounters Date Type Department Care Team (Late st Contact Info) Description 07/06/2024 3:30 PM EDT Office Visit Neurology [facility] 200 [facility] [place] [address] Lorenza Hardin PA-C [address] [place] [address] 07/19/2024 8:00 AM EDT Office Visit [address] [place] [address] Mor[facility]oo DO [facility] [address] 08/11/2024 8:30 AM EDT Cardiac Studies Cardiac Studies, [facility] 132 [facility] [place] [address] 09/01/2024 4:00 PM EST Office Visit Family Practice [address], [place] [address] [place] [address] Moriah Loo DO 293 [place] [address] Health Maintenance Due Date Last Done Comments Adult Wellness Visit 2002 COVID-19 Vaccine ( season) 2024 10/10/2021, 12/27/2020, 11/29/2020 Influenza Vaccine (FLU shot) (#1) 2024 08/04/2023, 08/28/2022, 12/09/2015 Depression Monitoring 09/10/2024 09/10/2023 CKD HGB USE SMARTSET 91140 01/12/202501/12, 04/29/2023, 04/29/2023, Additional history exists Albumin/Creatinine Ratio 05/13/2025 05/13/2024, 1106/2022 CKD PHOS USE SMARTSET 47406 05/13/202504/20, 04/29/2023, 03/22/2022 HbA1c 05/13/2025 05/13/2024, 12/19, 04/29/2023, Additional history exists DTap/Tdap Vaccines (2 - Td or Tdap) 03/12/2032 03/12/2022, 10/20/2012 Zoster Vaccines Completed 08/28/2022, 03/12/2022 Pneumococcal Vaccine: 65+ Years Completed 12/30/2022 HPV (Gardasil) Vaccine Aged Out No lo [...] Diagnoses Diagnosis Gouty arthropathy Gouty arthropathy, unspecified Hypertensive kidney disease with stage 3a chronic kidney disease (HCC) HTN, goal below 140/90 Unspecified essential hypertension documented in this encounter Care Teams Kiln Tester Relationship Specialty Start Date End Date Moriah Loo DO [address] [place] [address] PCP - General Internal Medicine 05/12/24 documented as of this encounter
--- OUTSIDE RECORDS SUMMARY | 2024-11-23 00:45 | External Medical Summary ---
Author Name Unknown Address Unknown Organization K01:[facility]AT[facility] - [address] [place] [address] Laboratory Report Ordering Provider Test Date Status YONY MAJOR 06/16/2024 08:42:18 Final Observation Date Value Abnormality Reference (Units ) Status Vitamin B12 06/16/2024 08:42:18 865 625-2825 (pg/mL) Final Performing Location [facility] - [address] [place] [address]
--- OUTSIDE RECORDS SUMMARY | 2024-11-23 00:45 | External Medical Summary | Summary of Care ---
Author Name Unknown Organization [facility] Address [address] [place] [address] Phone [phone] Care Team Providers Care Overhauler Bus Truck Name Role Phone Jam Loo DO Primary Care Provider [phone] Reason for Referral * Evaluate & Treat - Unlimited Visits (Within 10 days (routine)) - Authorized Specialty Diagnoses / Procedures Referred By Nick dumont Referred To Contact Neurology Diagnoses Memory loss Jam Loo DO [address] [place] [address] Referral ID Status Reason Start Date Expiration Date Visits Requested Visits Authorized [id number] Authorized Specialty Services Required 06/16/[phone] Question Answer Referral Priority Within 10 days (routine) Where should this appointment be scheduled? [facility] Is this referral being placed for insurance purposes ONLY No, patient needs appointment [facility] NEUROLOGY REFERRAL QUESTIONS Memory/Cognition Reason for Visit * Reason Comments Follow Up Encounter Details Date Type Department Care Team (Late st Contact Info) Description 06/16/2024 8:00 AM EDT Office Visit Family Practice 65 [facility] [place] [address] [place] [address] Jam Loo DO [address] [place] [address] Hypertensive kidney disease with stage 3a chronic kidney disease (HCC)*; Memory loss; Pure hypercholesterolemia; Gouty arthropathy; Slow transit constipation; Laxative habit; Prediabetes; Aneurysm of ascending aorta without rupture (HCC); Status post total right knee replacement Allergies No known active allergiesdocumented as of this encounter (statuses as of 06/16/2024) Medications Medication Sig Dispensed Refills Start Date End Date Status Aspirin 81 MG Tablet Take 1 Tablet by mouth in the morning. Active Diclofenac Sodium 1 % External Gel (Voltaren) Apply topically to affected area 2 g in the morning AND 2 g before bedtime. Apply to bilateral knees. 100 g 3 05/07/2022 Active Allopurinol 100 MG Oral Tablet (Zyloprim)Indicati ons:Gouty arthropathy Take 2 Tablets by mouth in the morning. 200 Tablet 3 04/01/2023 Active Potassium Chloride ER 10 MEQ Oral [...] the morning. 90 Tablet 3 06/16/2024 Active Lisinopril 10 MG Oral Tablet (Prinivil)Indicati ons:Hypertensive kidney disease with stage 3a chronic kidney disease (HCC),HTN, goal below 140/90 Take 1 Tablet by mouth in the morning. 90 Tablet 3 04/29/2023 Discontinue d(Refill) documented as of this encounter (statuses as of 06/16/2024) Active Problems Problem Noted Date Diagnosed Date [...] as of this encounter (statuses as of 06/16/2024) Resolved Problems Problem Noted Date Diagnosed Date Resolved Date Seborrheic dermatitis 09/30/20022021 Overview: ICD-10 update of inactive term Presbyacusis 01/30/2022 documented as of this encounter (statuses as of 06/16/2024) Immunizations Name Administration Dates Next Due COVID-19 [...] Current Snuff Tobacco Cessation:Ready to Q uit: Yes; Counseling Given: No Comments:chew-one can a week Alcohol Use Standard [...] Sign Reading Time Taken Comments Blood Pressure 132/70 06/16/2024 8:04 AM EDT Pulse 72 06/16/2024 8:04 AM EDT Temperature 36.6 C (97.9 F) 06/16/2024 8:04 AM ED T Respiratory Rate 14 06/16/2024 8:04 AM EDT Oxygen Saturation 97% 06/16/2024 8:04 AM EDT Inhaled Oxygen Concentration - - Weight 111 kg (244 lb 12.8 oz) 06/16/2024 8:04 A M EDT Height 175.3 cm (5' 9") 06/16/2024 8:04 AM EDT Body Mass Index 36.15 06/16/2024 8:04 AM EDT documented in this encounter Progress Notes * Jam Loo, DO - 06/16/2024 8:34 AM EDT SUBJECTIVE: Star Macario is a 89 year old male. Chief Complaint Patient presents with Follow Up HPI: Patient is an 89 year old male with a history of HTN, Hyperlipidemia, CKD Stage III, Prediabetes, Gout, right knee replacement, and bilateral leg edema that is seen for memory loss. The patient's daughter came to visit today. Family has noticed slow memory loss that has been present for 6-12 monthsand is worsening. He asks the same questions repeatedly and has trouble remembering directions. He has diarrhea and has been using a lot of laxatives due to constipation. N chest pain or shortness ofbreath are present. He continues to work at the [employer]. Patient Active Problem List Diagnosis Malignant neoplasm [...] 1 Tablet by mouth in the morning. Allopurinol 100 MG Oral Tablet (Zyloprim) Take 2 Tablets by mouth in the morning. 200 Tablet 3 Potassium Chloride ER 10 MEQ [...] mouth in the morning. 90 Tablet 3 Diclofenac Sodium 1 % External Gel (Voltaren) Apply topically to affected area 2 g in the morning AND 2 g before bedtime. Apply to bilateral knees. 100 g 3 No current facility-administered medications [...] 09/10/2023 Past Surgical History: Procedure Laterality Date AL ARTHRP KNE CONDYLE&PLATU MEDIAL&LAT COMPARTMENTS Right 08/27/2023 REMOVAL OF APPENDIX age 12-14 REMOVAL OF KIDNEY STONE 2005 REMOVE CATARACT, INSERT LENS PROSTH Bilateral Dr. [...] chest pain, palpitations and leg swelling. Gastrointestinal: Positive for constipation and diarrhea. Negative for abdominal pain, blood in stool, nausea and vomiting. Genitourinary: Negative for dysuria, frequency and hematuria. Musculoskeletal: Positive for back pain. Negative for gait problem. Neurological: Negative for dizziness, syncope and headaches. Psychiatric/Behavioral: Positive for confusion and decreased concentration. Negative for sleep disturbance. OBJECTIVE: BP 132/70 (BP Site: Left Arm, BP Position: Sitting, BP Cuff Size: Large) | Pulse 72 | Temp 36.6 C(97.9 F) (Tympanic) | Resp 14 | Ht 1.753 m (5' 9") | Wt 111 kg (244 lb 12.8 oz) | SpO2 97% | BMI 36.15 kg/m | BSA 2.32 m Physical Exam Vitals and nursing note [...] No weakness. Gait: Gait normal. Comments: MMSE 18/30 Psychiatric: Mood and Affect: Mood normal. Behavior: Behavior normal. PLAN AND ASSESSMENT: Hypertensive kidney disease with stage 3a chronic kidney disease (HCC) (Primary) - Renew Lisinopril 10 MG Oral Tablet (Prinivil); Take 1 Tablet by mouth in the morning. Memory loss - MINI-MENTAL QUESTIONNAIRE SCAN (MMSE) OP - TSH WITH FREE T4 IF INDICATED; Future; Expected date: 06/16/2024 - VITAMIN B12; Future; Expected date: 06/16/2024 - ADULT NEUROLOGY REFERRAL OP MMSE 18/30 Pure hypercholesterolemia Gouty arthropathy Continue Allopurinol Slow transit constipation - Start Polyethylene Glycol 3350 17 GM/SCOOP Oral Powder (MiraLax); Take 17 g by mouth in the morning. Dissolve one heaping tablespoon in 8 ounces of water or juice.. Family will remove all other laxatives from the home Prediabetes Aneurysm of ascending aorta without rupture (HCC) Repeat Echo in 07/2024 Status post total right knee replacement Follow Up: Return in about 1 month (around 07/17/2024), or if symptoms worsen or fail to improve. Jam Loo DO 8:34 AM 06/16/2024 documented in this encounter Nursing Notes * Asha Burciaga LPN - 06/16/2024 7:58 AM EDT Patient here for follow up visit. Pt requesting refill on Lisinopril. Mini mental exam per physician: Score - 18/30 documented in this encounter Plan of Treatment Upcoming Encounters Date Type Department Care Team (Late st Contact Info) Description 07/19/2024 8:00 AM EDT Office Visit [address] 293 [place] [address] Jam Loo DO 293 [facility] [place] [address] 08/11/2024 8:30 AM EDT Cardiac Studies Cardiac Studies, [facility] 132 [facility] [place] [address] 09/01/2024 4:00 PM EST Office Visit [address] 293 [place] [address] Jam Loo, 293 [place] [address] Pending Results Name Type Priority Associated Diagnoses Date /Time TSH WITH FREE T4 IF INDICATED Lab Routine Memory loss 06/16/2024 8:42 AM EDT VITAMIN B12 Lab Routine Memory loss 06/16/2024 8:42 AM EDT Scheduled Orders Name Type Priority Associated Diagnoses Orde r Schedule TSH WITH FREE T4 IF INDICATED Lab Routine Memory loss Expected: 06/16/2024 (Approximate), Expires: 06/16/2025 VITAMIN B12 Lab Routine Memory loss Expected: 06/16/2024 (Approximate), Expires: 06/16/2025 Scheduled Referrals Name Type Priority Associated Diagnoses Orde r Schedule ADULT NEUROLOGY REFERRAL OP Referral Within 10 days (routine) Memory loss Ordered: 06/16/2024 Health Maintenance Due Date Last Done Comments Adult Wellness Visit 06/17/2024 Postpon ed from 2002 (Patient Declined After Education) COVID-19 Vaccine ( season) 2024 10/10/2021, 12/27/2020, 11/29/2020 Postponed from 06/20/2023 (Unavailable) Influenza Vaccine (FLU shot) (#1) 2024 08/04/2023, 08/28/2022, 12/09/2015 Depression Monitoring 09/10/2024 09/10/2023 CKD HGB USE SMARTSET 78582 01/12/202501/12, 04/29/2023, 04/29/2023, Additional history exists Albumin/Creatinine Ratio 05/13/2025 05/13/2024, 11/0 06/2022 CKD PHOS USE SMARTSET 22088 05/13/202504/20, 04/29/2023, 03/22/2022 HbA1c 05/13/2025 05/13/2024, 12/19, [...] stage 3a chronic kidney disease (HCC)- Primary Memory loss Pure hypercholesterolemia Gouty arthropathy Gouty arthropathy, unspecified Slow transit constipation Laxative habit Other, mixed, or unspecified nondependent drug abuse, unspecified Prediabetes Other abnormal glucose Aneurysm of ascending aorta without rupture (HCC) Status post total right knee replacement documented in this encounter Care Teams Overhauler Bus Truck Relationship Specialty Start Date End Date Jam Loo DO [address] [place] [address] PCP - General Internal Medicine 05/12/24 documented as of this encounter
--- OUTSIDE RECORDS SUMMARY | 2024-11-23 00:45 | External Medical Summary | Summary of Care ---
Author Name Unknown Organization [facility] Address [address] [place] [address] Phone [phone] Care Team Providers Care Sheet Rock Taper Helper Name Role Phone Jam Loo DO Primary Care Provider Reason for Referral * Evaluate & Treat - Unlimited Visits (Within 10 days (routine)) - Authorized Specialty Diagnoses / Procedures Referred By Nick dumont Referred To Contact Neurology Diagnoses Memory loss Jam Loo DO [address] [place] [address] Referral ID Status Reason Start Date Expiration Date Visits Requested Visits Authorized [id number] Authorized Specialty Services Required 06/16/[phone] Question Answer Referral Priority Within 10 days (routine) Where should this appointment be scheduled? [facility] Is this referral being placed for insurance purposes ONLY No, patient needs appointment [facility] NEUROLOGY REFERRAL QUESTIONS Memory/Cognition Reason for Visit * Reason Comments Follow Up Encounter Details Date Type Department Care Team (Late st Contact Info) Description 06/16/2024 8:00 AM EDT Office Visit Family Practice 65 [facility] [place] [address] [place] [address] Jam Loo DO [address] [place] [address] Hypertensive kidney disease with stage 3a chronic kidney disease (HCC)*; Memory loss; Pure hypercholesterolemia; Gouty arthropathy; Slow transit constipation; Laxative habit; Prediabetes; Aneurysm of ascending aorta without rupture (HCC); Status post total right knee replacement Allergies No known active allergiesdocumented as of this encounter (statuses as of 06/17/2024) Medications Medication Sig Dispensed Refills Start Date [...] as of this encounter (statuses as of 06/17/2024) Active Problems Problem Noted Date Diagnosed Date [...] as of this encounter (statuses as of 06/17/2024) Resolved Problems Problem Noted Date Diagnosed Date Resolved Date Seborrheic dermatitis 09/30/20022021 Overview: ICD-10 update of inactive term Presbyacusis 01/30/2022 documented as of this encounter (statuses as of 06/17/2024) Immunizations Name Administration Dates Next Due COVID-19 [...] present. He continues to work at the [employer]. Patient Active Problem List Diagnosis Malignant neoplasm [...] 09/10/2023 Past Surgical History: Procedure Laterality Date [place] ARTHRP KNE CONDYLE&PLATU MEDIAL&LAT COMPARTMENTS Right 08/27/2023 [...] Care Team (Late st Contact Info) Description 06/29/2024 9:00 AM EDT Telemedicine Neurology [address] [place] [phone] Miya Hernadez DO [address] [place] [address] Lori Giled [facility] 200 [facility] [place] [address] 07/19/2024 8:00 AM EDT Office Visit Family Practice 65 [facility] [place] 293 [facility] [place] [address] Jam Loo, DO 293 [facility] [place] [address] 08/11/2024 8:30 AM EDT Cardiac Studies Cardiac Studies, [facility] [address] [place] [address] 09/01/2024 4:00 PM EST Office Visit Family Practice [address], [place] 293 [facility] [place] [address] Jam Loo, DO 293 [facility] [place] [address] Scheduled Referrals Name Type Priority Associated Diagnoses [...] Monitoring 09/10/2024 09/10/2023 CKD HGB USE SMARTSET 75594 01/12/202501/12, 04/29/2023, 04/29/2023, Additional history exists Albumin/Creatinine Ratio 05/13/2025 05/13/2024, 11/0 06/2022 CKD PHOS USE SMARTSET 31741 05/13/202504/20, 04/29/2023, 03/22/2022 HbA1c 05/13/2025 05/13/2024, 12/19, [...] Not on filedocumented as of this encounter Procedures Procedure Name Priority Date/Time Associated Diagnosis Comments TSH WITH FREE T4 IF INDICATED Routine 06/16/2024 8:42 AM EDT Memory loss VITAMIN B12 Routine 06/16/2024 8:42 AM EDT Memory loss documented in this encounter Results * VITAMIN B12 (06/16/2024 8:42 AM EDT) Vitamin B12 257 232 - 1,245 pg/mL 06/16/2024 2:39 PM EDT [facility] Blood Venous blood specimen / Unknown Venipuncture / Unknown 06/16/2024 8:42 AM EDT 06/16/2024 8:42 AM EDT Jam Loo DO LAB BLOOD ORDERABLES Performing Organization Address [facility] de Phone Number LABORATORY [facility] [address] [place] [address] * TSH WITH FREE T4 IF INDICATED (06/16/2024 8:42 AM EDT) TSH 2.25 0.27 - 4.20 uIU/mL 06/16/2024 2:39 PM EDT [facility] Blood Venous blood specimen / Unknown Venipuncture / Unknown 06/16/2024 8:42 AM EDT 06/16/2024 8:42 AM EDT Jam Loo DO LAB BLOOD ORDERABLES Performing Organization Address City/[facility] Co de Phone Number LABORATORY [facility] [address] [place] [address] documented in this encounter Visit Diagnoses Diagnosis Hypertensive kidney disease with stage 3a chronic kidney disease (HCC)- Primary Memory loss Pure hypercholesterolemia Gouty arthropathy Gouty arthropathy, unspecified Slow transit constipation Laxative habit Other, mixed, or unspecified nondependent drug abuse, unspecified Prediabetes Other abnormal glucose Aneurysm of ascending aorta without rupture (HCC) Status post total right knee replacement documented in this encounter Care Teams Sheet Rock Taper Helper Relationship Specialty Start Date End Date Jam Loo DO [address] [place] [address] PCP - General Internal Medicine 05/12/24 documented as of this encounter
--- OUTSIDE RECORDS SUMMARY | 2024-11-23 00:45 | External Medical Summary | Summary of Care ---
Author Name Unknown Organization [facility] Address [address] [place] [facility] [place] [address] Phone [phone] Care Team Providers Care Lock Up Worker Name Role Phone Jam Loo DO Primary Care Provider Reason for Visit * Reason Onset Date Comments Advice 06/14/202406/14 Encounter Details Date Type Department Care Team (Late st Contact Info) Description 06/14/2024 Telephone Family Practice [address], [place] [address] [place] [phone] Jam Loo DO [address] [place], [place] [phone] Advice (06/14) Allergies No known active allergiesdocumented as of this encounter (statuses as of 06/14/2024) Medications Medication Sig Dispensed Refills Start Date [...] the morning. 90 Tablet 1 04/13/2024 Active documented as of this encounter (statuses as of 06/14/2024) Active Problems Problem Noted Date Diagnosed Date [...] as of this encounter (statuses as of 06/14/2024) Resolved Problems Problem Noted Date Diagnosed Date Resolved Date Seborrheic dermatitis 09/30/20022021 Overview: ICD-10 update of inactive term Presbyacusis 01/30/2022 documented as of this encounter (statuses as of 06/14/2024) Immunizations Name Administration Dates Next Due COVID-19 [...] encounter Miscellaneous Notes * Telephone Encounter - Bryon Khloe, LPN - 06/14/2024 12:39 PM EDT Called , she has concerns he is taking more than prescribed of colace. Asked if he was eating any fair food? states no. She is concerned he is forgetting. Scheduled Friday AM at 0800. * Telephone Encounter - Verenice Esparza OSA - 06/14/2024 10:47 AM EDT Returned Tammie call Please call back * Telephone Encounter - Josiane Slater LPN - 06/14/2024 9:24 AM EDT Called, left message for patient to return call. * Telephone Encounter - Verenice Esparza OSA - 06/14/2024 8:01 AM EDT Acting funny Taking pills for diarrhea and they are not working Had it everywhere Wants to know what to do? Please advise documented in this encounter Plan of Treatment Upcoming Encounters Date Type Department Care Team (Late st Contact Info) Description 06/16/2024 8:00 AM EDT Office Visit Family [address] [place] [address] Jam Loo, [address] [place] [address] 08/11/2024 8:30 AM EDT Cardiac Studies Cardiac Studies, [facility] 132 [facility] [place] [address] 09/01/2024 4:00 PM EST Office Visit [address] [place] [address] Jam Loo, [address] [place] [address] Health Maintenance Due Date Last Done Comments Adult Wellness Visit 2002 COVID-19 Vaccine ( season) 2023 10/10/2021, 12/27/2020, 11/29/2020 Influenza Vaccine (FLU shot) (#1) 2024 08/04/2023, 08/28/2022, 12/09/2015 Depression Monitoring 09/10/2024 09/10/2023 CKD HGB USE SMARTSET 35395 01/12/202501/12, 04/29/2023, 04/29/2023, Additional history exists Albumin/Creatinine Ratio 05/13/2025 05/13/2024, 11/0 06/2022 CKD PHOS USE SMARTSET 04128 05/13/202504/20, 04/29/2023, 03/22/2022 HbA1c 05/13/2025 05/13/2024, 12/19, 04/29/2023, Additional history exists DTaP,Tdap,and Td Vaccines (2 [...] filedocumented as of this encounter Care Teams Lock Up Worker Relationship Specialty Start Date End Date Jam Loo DO 293 [place] [address] PCP - General Internal Medicine 05/12/24 documented as of this encounter
--- OUTSIDE RECORDS SUMMARY | 2024-11-23 00:45 | External Medical Summary | Summary of Care ---
Author Name Unknown Organization [facility] Address [address] [place] [place] [address] Phone [phone] Care Team Providers Care Clerk Carrier Name Role Phone Jam Loo DO Primary Care Provider [phone] Reason for Visit * Reason Onset Date Comments Test Results 06/17/202406/17 Encounter Details Date Type Department Care Team (Late st Contact Info) Description 06/17/2024 Telephone Family Practice [address], [place] [address] [place] [phone] Jam Loo DO [address] [place] [address] Test Results (06/17) Allergies No known active allergiesdocumented as of [...] 1 Tablet by mouth daily. 06/17/2024 Active documented as of this encounter (statuses [...] No 09/10/2023 Does the household have a [facility] source of income? (Household - for ages [...] encounter Miscellaneous Notes * Telephone Encounter - Asha Burciaga LPN - 06/17/2024 2:35 PM EDT Call placed to daughter Yesika and relayed information from Dr. Loo. Yesika acknowledged understanding. Call also placed to pts Nupur and relayed information. She acknowledged understanding and states she will apple picker Vit B12 and have him take as recommended. Confirmed next OV on 07/19/24. Lab order pended. Medication pended as historical. * Telephone Encounter - Asha Burciaga LPN - 06/17/2024 2:27 PM EDT ----- Message from Jam Loo DO sent at 06/16/2024 8:13 PM EDT ----- TSH is good B 12 is normal but the lower end of normal Start B 12 500 mcg by mouth daily Repeat B12 level in 1 month documented in this encounter Plan of Treatment Upcoming Encounters Date Type Department Care Team (Late st Contact Info) Description 06/29/2024 9:00 AM EDT Telemedicine Neurology N[address] [place] [phone] Miya Hernadez DO [address] [facility] [place] [address] Cart, Telemed [facility] 200 [place] [address] 07/19/2024 8:00 AM EDT Office Visit Family Practice [address] [place] [address] [address] [place] [phone] Jam Loo DO 293 [place] [address] 08/11/2024 8:30 AM EDT Cardiac Studies Cardiac Studies, [facility] 132 [facility] [place] [address] 09/01/2024 4:00 PM EST Office Visit Family Practice [address] [place] [address] [address] [place] [phone] Jam Loo, [address] [place] [address] Scheduled Orders Name Type Priority Associated Diagnoses Orde r Schedule VITAMIN B12 Lab Routine B12 deficiency Expected: 07/18/2024 (Approximate), Expires: 06/17/2025 Health Maintenance Due Date Last Done Comments Adult Wellness Visit 06/17/2024 Postpon ed from 2002 (Patient Declined After Education) COVID-19 Vaccine ( season) 2024 10/10/2021, 12/27/2020, 11/29/2020 Postponed from 06/20/2023 (Unavailable) Influenza Vaccine (FLU shot) (#1) 2024 08/04/2023, 08/28/2022, 12/09/2015 Depression Monitoring 09/10/2024 09/10/2023 CKD HGB USE SMARTSET 79568 01/12/202501/12, 04/29/2023, 04/29/2023, Additional history exists Albumin/Creatinine Ratio 05/13/2025 05/13/2024, 11/06/2022 CKD PHOS USE SMARTSET 40056 05/13/20252 02/2024, 04/29/2023, 03/22/2022 HbA1c 05/13/2025 05/13/2024, [...] of this encounter Visit Diagnoses Diagnosis B12 deficiency- Primary Other B-complex deficiencies documented in this encounter Care Teams Clerk Carrier Relationship Specialty Start Date End Date Jam Loo DO [address] [place] [address] PCP - General Internal Medicine 05/12/24 documented as of this encounter
--- OUTSIDE RECORDS SUMMARY | 2024-11-23 00:45 | External Medical Summary | Summary of Care ---
Author Name Unknown Organization [facility] Address [address] [facility] [place] [address] Phone [phone] Care Team Providers Care Electrical Helper Name Role Phone Jam Loo DO Primary Care Provider [phone] Reason for Visit * Reason Onset Date Comments Advice 06/14/202406/14 Encounter Details Date Type Department Care Team (Late st Contact Info) Description 06/14/2024 Telephone Family Practice [address], [place] [address] [place] [phone] Jam Loo DO 293 [place], [place] [phone] Advice (06/14) Allergies No known active allergiesdocumented [...] Telephone Encounter - Jam Loo DO - 06/14/2024 2:03 PM EDT Noted. * Telephone Encounter - Josiane Slater LPN - 06/14/2024 12:39 PM EDT Called [...] 8:00 AM EDT Office Visit Family Practice [address] [place] [address] [address] [place] [address] Jam Loo, 293 [place] [address] 08/11/2024 8:30 AM EDT Cardiac Studies Cardiac Studies, [address] [place] [address] 09/01/2024 4:00 PM EST Office Visit Family Practice [address] [place] [address] [address] [place] [address] Jam Loo, 293 [place] [address] Health Maintenance Due Date Last Done Comments Adult Wellness Visit 2002 COVID-19 Vaccine ( season) 2023 10/10/2021, 12/27/2020, 11/29/2020 Influenza Vaccine (FLU shot) (#1) 2024 08/04/2023, 08/28/2022, 12/09/2015 Depression Monitoring 09/10/2024 09/10/2023 CKD HGB USE SMARTSET 64332 01/12/202501/12, 04/29/2023, 04/29/2023, Additional history exists Albumin/Creatinine Ratio 05/13/2025 05/13/2024, 11/0 06/2022 CKD PHOS USE SMARTSET 72486 05/13/202504/20, 04/29/2023, 03/22/2022 HbA1c 05/13/2025 05/13/2024, 12/19, [...] filedocumented as of this encounter Care Teams Electrical Helper Relationship Specialty Start Date End Date Jam Loo DO [address] [place] [address] PCP - General Internal Medicine 05/12/24 documented as of this encounter
--- OUTSIDE RECORDS SUMMARY | 2024-11-23 00:45 | External Medical Summary | Summary of Care ---
Author Name Unknown Organization [facility] Address [address] [facility] [place] [address] Phone [phone] Care Team Providers Care Lockstitch Front Maker Name Role Phone Jam Loo DO Primary Care Provider [phone] Reason for Visit * Reason Onset Date Comments Appointment 06/16/2024 Neuro referral Encounter Details Date Type Department Care Team (Late st Contact Info) Description 06/16/2024 Telephone Family Practice [address], [place] [address] [place] [phone] Jam Loo DO 293 [place], [place] [phone] Appointment (Neuro referral) Allergies No known active allergiesdocumented as of this encounter (statuses as of 06/18/2024) Medications Medication Sig Dispensed Refills Start Date [...] the morning. 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 (Household - for ages [...] encounter Miscellaneous Notes * Telephone Encounter - Sheila Díaz OSA - 06/18/2024 9:30 AM EDT Scheduled in Jun * Telephone Encounter - Gladis Everett OSA - 06/16/2024 8:45 AM EDT Pt was referred for new memory. First avial is January. Can pt be seen sooner. Please call mildred at [phone] to set up this appt. documented in this encounter Plan of Treatment Upcoming Encounters Date Type Department Care Team (Late st Contact Info) Description 06/29/2024 9:00 AM EDT Telemedicine Neurology [address] [place] [phone] Miya Hernadez, DO [address] [place] [address] [place], Telemed [facility] 200 [facility] [place] [address] 07/19/2024 8:00 AM EDT Office Visit Family [address] [place] [phone] Jam Loo, DO 293 [facility] [place] [address] 08/11/2024 8:30 AM EDT Cardiac Studies Cardiac Studies, [facility] 132 [facility] [place] [address] 09/01/2024 4:00 PM EST Office Visit [address] [place] [address] Jam Loo, DO 293 [facility] [place] [address] Health Maintenance Due Date Last Done Comments Adult Wellness Visit 2002 COVID-19 Vaccine ( season) 2023 10/10/2021, 12/27/2020, 11/29/2020 Influenza Vaccine (FLU shot) (#1) 2024 08/04/2023, 08/28/2022, 12/09/2015 Depression Monitoring 09/10/2024 09/10/2023 CKD HGB USE SMARTSET 93779 01/12/202501/12, 04/29/2023, 04/29/2023, Additional history exists Albumin/Creatinine Ratio 05/13/2025 05/13/2024, 11/0 06/2022 CKD PHOS USE SMARTSET 77021 05/13/202504/20, 04/29/2023, 03/22/2022 HbA1c 05/13/2025 05/13/2024, 12/19, [...] filedocumented as of this encounter Care Teams Lockstitch Front Maker Relationship Specialty Start Date End Date Jam Loo DO 293 [facility] [place] [address] PCP - General Internal Medicine 05/12/24 documented as of this encounter
--- OUTSIDE RECORDS SUMMARY | 2024-11-23 00:45 | External Medical Summary ---
Author Name Unknown Address Unknown Organization K01:[facility] [place] - [address] [facility] [place] [address] Laboratory Report Ordering Provider Test Date Status YONY MAJOR 06/16/2024 08:42:18 Final Observation Date Value Abnormality Reference (Units ) Status TSH 06/16/2024 08:42:18 2.25 0.27-4.20 (uIU/mL) Final Performing Location [facility] [address] [facility] [address]
--- OUTSIDE RECORDS SUMMARY | 2024-11-23 00:45 | External Medical Summary | Summary of Care ---
Author Name Unknown Organization [facility] Address [address] [place] [address] Phone [phone] Care Team Providers Care Baggage Checker Name Role Phone CharleselaineJam DO Primary Care Provider [phone] Reason for Visit * Reason Onset Date Comments Appointment Canceled 06/28/2024 Encounter Details Date Type Department Care Team (Late st Contact Info) Description 06/28/2024 Telephone Neurology [facility] [address] [place] [address] Specified, Zz No Resource [address] [place] [address] Appointment Canceled Allergies No known active allergiesdocumented as of this encounter (statuses as of 06/28/2024) Medications Medication Sig Dispensed Refills Start Date [...] as of this encounter (statuses as of 06/28/2024) Active Problems Problem Noted Date Diagnosed Date [...] as of this encounter (statuses as of 06/28/2024) Resolved Problems Problem Noted Date Diagnosed Date Resolved Date Seborrheic dermatitis 09/30/20022021 Overview: ICD-10 update of inactive term 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 (Household - for [...] encounter Miscellaneous Notes * Telephone Encounter - Phuong Peterson OSA - 06/28/2024 9:29 AM EDT Lmom to cx and reschedule appt due to a change in the provider schedule, appt has been rescheduled to 06/30 in [facility] at 11:00 for a telemedicine documented in this encounter Plan of Treatment Upcoming Encounters Date Type Department Care Team (Late st Contact Info) Description 06/30/2024 11:00 AM EDT Telemedicine Neurology [facility] [address] [place] [address] Miya Hernadez, DO [address] [facility] [place] [address] [place], Telemed [facility] 200 [facility] [place] [address] 07/19/2024 8:00 AM EDT Office Visit Family [address] [place] [address] Jam Loo, 293 [facility] [address] 08/11/2024 8:30 AM EDT Cardiac Studies Cardiac Studies, [facility] 132 [facility] [place] [address] 09/01/2024 4:00 PM EST Office Visit [address] [place] [address] Jam Loo, 293 [facility] [address] Health Maintenance Due Date Last Done Comments Adult Wellness Visit 2002 COVID-19 Vaccine ( season) 2024 10/10/2021, 12/27/2020, 11/29/2020 Influenza Vaccine (FLU shot) (#1) 2024 08/04/2023, 08/28/2022, 12/09/2015 Depression Monitoring 09/10/2024 09/10/2023 CKD HGB USE SMARTSET [id number] 01/12/202501/12, 04/29/2023, 04/29/2023, Additional history exists Albumin/Creatinine Ratio 05/13/2025 05/13/2024, 11/0 06/2022 CKD PHOS USE SMARTSET 07026 05/13/2025 07/02/2024, 04/29/2023, 03/22/2022 HbA1c 05/13/2025 05/13/2024, 12/19, 04/29/2023, [...] filedocumented as of this encounter Care Teams Baggage Checker Relationship Specialty Start Date End Date Jam Loo DO [address] [place] [address] PCP - General Internal Medicine 05/12/24 documented as of this encounter
--- OUTSIDE RECORDS SUMMARY | 2024-11-23 00:45 | External Medical Summary | Summary of Care ---
Author Name Unknown Organization [facility] Address [address] [place] [address] Phone [phone] Care Team Providers Care Photographer'S Model Name Role Phone Moriah Loo DO Primary Care Provider [phone] Reason for Visit * Reason Comments eRx-Medication Refill Encounter Details Date Type Department Care Team (Late st Contact Info) Description 06/15/2024 Refill Family Practice [address], [place] [address] [place] [phone] Moriah Loo DO 293 [place] [address] Hypertensive kidney disease with stage 3a chronic [...] the morning. 90 Tablet 1 04/13/2024 Active Lisinopril 10 MG Oral Tablet (Prinivil)Indicat ions:Hypertensive kidney disease with stage 3a chronic kidney disease (HCC),HTN, goal below 140/90 Take 1 Tablet by mouth in the morning. 90 Tablet 3 04/29/2023 06/16/2024 Discontinue d(Refill) documented as of this encounter [...] encounter Miscellaneous Notes * Telephone Encounter - Moriah Loo DO - 06/16/2024 8:33 AM EDTRefused Prescriptions: Disp Refills Lisinopril 10 MG Oral Tablet 90 Tab*0 Sig: Take 1 Tablet by mouth in the morning.Refused By: MORIAH LOO for Refusal: Duplicate Request documented in this encounter Plan of Treatment Upcoming Encounters Date Type Department Care Team (Late st Contact Info) Description 08/11/2024 8:30 AM EDT Cardiac Studies Cardiac Studies, [facility] [address] [place] [address] 09/01/2024 4:00 PM EST Office Visit Family Practice [address], [place] [facility] [phone] Moriah Loo, 293 [facility] [address] Health Maintenance Due Date Last Done Comments Adult Wellness Visit 06/17/2024 Postpon ed from 2002 (Patient Declined After Education) COVID-19 Vaccine ( season) 2024 10/10/2021, 12/27/2020, 11/29/2020 Postponed from 06/20/2023 (Unavailable) Influenza Vaccine (FLU shot) (#1) 2024 08/04/2023, 08/28/2022, 12/09/2015 Depression Monitoring 09/10/2024 09/10/2023 CKD HGB USE SMARTSET 13722 01/12/202501/12, 04/29/2023, 04/29/2023, Additional history exists Albumin/Creatinine Ratio 05/13/2025 05/13/2024, 06/2022 CKD PHOS USE SMARTSET 72012 05/13/202504/20, 04/29/2023, 03/22/2022 HbA1c 05/13/2025 05/13/2024, 12/19, [...] hypertension documented in this encounter Care Teams Photographer'S Model Relationship Specialty Start Date End Date Moriah Loo DO [address] [place] [address] PCP - General Internal Medicine 05/12/24 documented as of this encounter
--- OUTSIDE RECORDS SUMMARY | 2024-11-23 00:45 | External Medical Summary | Summary of Care ---
Author Name Unknown Organization [facility] Address [address] [place] [address] Phone [phone] Care Team Providers Care County Manager Name Role Phone Jam Loo Venecia HERNANDEZ Primary Care Provider [phone] Encounter Details Date Type Department Care Team (Late st Contact Info) Description 06/19/2024 New Patient Triage (COMPONENT TECHNICIAN USE ONLY) Neurology [address] [place] [phone] Victoria Mcclure PA-C [address] [place] [address] Allergies No known active allergiesdocumented as of this encounter (statuses as of 06/19/2024) Medications Medication Sig Dispensed Refills Start Date [...] as of this encounter (statuses as of 06/19/2024) Active Problems Problem Noted Date Diagnosed Date [...] as of this encounter (statuses as of 06/19/2024) Resolved Problems Problem Noted Date Diagnosed Date Resolved Date Seborrheic dermatitis 09/30/20022021 Overview: ICD-10 update of inactive term 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 (Household - for [...] as of this encounter Progress Notes * Victoria Mcclure PA-C - 06/19/2024 3:22 PM EDT Does patient need to be seen?: Yes Modality: First available Urgency: Within 30 days (routine) Discussed care plan with patient or proxy?: No sent to scheduling. Patient is appropriately scheduled with Dr. Hernadez on 06/29/2024. * Victoria Mcclure PA-C - 06/19/2024 3:21 PM EDT New Patient Triage What is the diagnosis/reason for referral?: memory loss Enter order ID here: [id number] Specialty specific documentation: Neuroscience: Neurology documented in this encounter Plan of Treatment Upcoming Encounters Date Type Department Care Team (Late st Contact Info) Description 06/29/2024 9:00 AM EDT Telemedicine Neurology [address] [place] [phone] Miya Hernadez, DO [address] [facility] [place] [address] [place] Telemed [facility] 200 [place] [address] 07/19/2024 8:00 AM EDT Office Visit Family [facility] 65 [facility] 293 [place] [address] Jam Loo, 293 [place] [address] 08/11/2024 8:30 AM EDT Cardiac Studies Cardiac Studies, [facility] 132 [place] [address] 09/01/2024 4:00 PM EST Office Visit [facility] 65 [facility] [address] [place] [address] Jam Loo, 293 [place] [address] Health Maintenance Due Date Last Done Comments Adult Wellness Visit 2002 COVID-19 Vaccine ( season) 2023 10/10/2021, 12/27/2020, 11/29/2020 Influenza Vaccine (FLU shot) (#1) 2024 08/04/2023, 08/28/2022, 12/09/2015 Depression Monitoring 09/10/2024 09/10/2023 CKD HGB USE SMARTSET 94772 01/12/202501/12, 04/29/2023, 04/29/2023, Additional history exists Albumin/Creatinine Ratio 05/13/2025 05/13/2024, 1106/2022 CKD PHOS USE SMARTSET 49583 05/13/202504/20, 04/29/2023, 03/22/2022 HbA1c 05/13/2025 05/13/2024, 12/19, [...] filedocumented as of this encounter Care Teams County Manager Relationship Specialty Start Date End Date Jam Loo DO 293 [facility] [place] [address] PCP - General Internal Medicine 05/12/24 documented as of this encounter
[2024-11-23 03:19] VITALS: RESP 18
[2024-11-23 04:21] LABS: Basophils # (auto) 0.01 K/uL (0.00-0.20); Basophils % (auto) 0.3 %; Hematocrit (blood only) 46.1 % (42.0-52.0); Hemoglobin 15.2 g/dl (14.0-18.0); Immature Granulocytes # (auto) 0.02 K/uL (0.01-0.20); Immature Granulocytes % (auto) 0.6 %; Lymphocytes # (auto) 0.52 K/uL (1.20-3.40); Lymphocytes % (auto) 14.9 %; Mean Corpuscular Hemoglobin 30.3 pg (25.0-34.0); Mean Corpuscular Volume 91.8 fL (80.0-100.0); Mean Platelet Volume 10.7 fL (9.4-12.4); Monocytes # (auto) 0.07 K/uL (0.11-0.59); Neutrophils # (auto) 2.86 K/uL (1.40-6.50); Neutrophils % (auto) 82.2 %; Platelet Count 218 K/uL (130-400); RDW Coefficient of Variation 13.2 % (11.5-14.5); RDW Standard Deviation 44.5 fL (36.4-46.3); Red Blood Count 5.02 M/uL (4.70-6.10); White Blood Count 3.48 K/ul (4.8-10.8)
[2024-11-23 04:33] LABS: Albumin Globulin Ratio 1.4 (0.9-2); BUN Creatinine Ratio 23.9 (10-20); Bilirubin,Total 0.7 mg/dl (0.2-1.0); Calcium 8.9 mg/dl (8.6-10.3); Creatinine Clr Calc Pharmacy 56.8 ml/min; Globulin 2.9 gm/dl (2.5-4.0); Magnesium 1.8 mg/dl (1.7-2.4); Total Protein 6.9 gm/dl (6.0-8.3)
[2024-11-23 07:16] VITALS: BP 178/98; TEMP 98.2; O2SAT 91
[2024-11-23] MEDS: allopurinoL 100 MG TAB PO SCH (08:27)
[2024-11-23] MEDS: CETIRIZINE HCL 10 MG TABLET PO SCH (08:28)
[2024-11-23] MEDS: predniSONE 20 MG TAB PO SCH (08:29)
[2024-11-23] MEDS: FUROSEMIDE 40 MG TAB PO SCH (08:29)
--- NOTE | 2024-11-23 09:10 | Electrocardiogram Report ---
Test Reason : Blood Pressure : */* mmHG Vent. Rate : 70 BPM Atrial Rate : 70 BPM P-R Int : 220 ms QRS Dur : 92 ms QT Int : 354 ms P-R-T Axes : 50 -18 27 degrees QTcB Int : 382 ms Sinus rhythm with 1st degree A-V block Minimal voltage criteria for LVH, may be normal variant ( R in aVL ) Poor R wave progression, consider anterior ME vs. lead placement vs. LVH Abnormal ECG When compared with ECG of 25-Jul-2023 09:19, No significant change was found Confirmed by Benson Dos Santos ([id number]) on 11/23/2024 9:10:32 AM Referred By: REFERRED SELF Confirmed By: Benson Dos Santos
[2024-11-23 11:41] VITALS: PULSE 90
--- NOTE | 2024-11-23 12:44 | Discharge Summary ---
Date of Service November 23, 2024 Admission HPI Per Admitting Provider This is an 89-year-old male who has significant past medical history of HTN, HLD, prediabetes, ascending aortic aneurysm, CKD stage III, gout, Alzheimer's, depression and tobacco use who presents to ED secondary to swelling of his upper lip. Daughter is at bedside who helps elicit history. was on the phone and also helped elicit history. Patient states he woke up this morning in his normal state of health. Approximately 30 minutes to 1 hour after taking his morning medications he noticed swelling and tingling to his upper lip. It progressed to the point he felt his upper lip was numb. When he looked in the mirror he saw significant swelling to the upper lip. At that time he denied any shortness of breath, drooling, inability to handle his own secretions. He did have difficulty eating noodles today but that was due to the swelling of his lip, not because he felt he had difficulty swallowing. He denies ever having similar symptoms in the past. The states approximately 3 weeks ago she noticed his upper lip swell, but resolved on its own. He was seen and evaluated by PCP today who recommended urgent ER evaluation. He had been on lisinopril for many years and it was recommended that he stop this as it could be the result of his angioedema. Otherwise there is no new foods or medications that he started. In ED patient remained hemodynamically stable. He is saturating well on room air. His CBC and CMP was unremarkable. He received IV Solu- Medrol, Zyrtec and tranexamic acid in the ED. He currently chews tobacco, but rarely. He denies any alcohol use. Admission Exam Per Admitting Provider constitutional: WD/WN, elderly, M, vitals as above, NAD, sitting up in bed, pleasant, conversing easily Head: Normocephalic, Atraumatic Eyes: PERRL, conjunctivae normal, anicteric sclerae ENMT: external ear and nose normal, oropharynx normal + angioedema of the upper lip Neck: trachea midline, no thyromegaly normal visual inspection Respiratory: normal respiratory effort, lungs clear to auscultation, no wheeze, rales, rhonchi. Normal insp/exp effort, no accessory muscle use Cardiovascular: RRR, no murmur, no edema Vessels: no JVD or carotid bruit Chest: normal inspection of chest Abdomen: normal bowel sounds, soft, nontender, no hepatosplenomegaly Musculoskeletal: no cyanosis or clubbing, extremities motor strength 5/5 Skin: +seborrheic dermatitis of facial hair region, no rashes, warm and dry normal turgor Neurologic: PERRL, EOMI, accommodation nl, no face palsy, no dysarthria CN's II-XI intact bilaterally and moves all extremities Psychiatric: A+Ox3, euthymic affect Lymphatic: no cervical or axillary lymphadenopathy : deferred Principal Diagnosis Angioedema Discharge Exam Constitutional: Alert oriented x 3; not in distress Mouth; minimal upper lip swelling. No stridor. Respiratory: Bilateral vesicular breath sound. Cardiovascular: RRR, no murmur, no edema Vessels: no JVD or carotid bruit Chest: normal inspection of chest Abdomen: normal bowel sounds, soft, nontender, no hepatosplenomegaly Musculoskeletal: no cyanosis or clubbing, extremities motor strength 5/5 Skin: no rashes, warm and dry normal turgor Neurologic: PERRL, EOMI, accommodation nl, no face palsy, no dysarthria CN's II- XI intact bilaterally and moves all extremities Psychiatric: A+Ox3, euthymic affec Discharge Data Allergies Allergy/AdvReac Type Severity Reaction Status Date / Time lisinopril Allergy Severe angioedema Verified 11/22/24 18:42 Consultations 11/22/24 18:05 ED Decision to Admit Stat Hospital Course (1) Angioedema: (2) HTN (hypertension): (3) CKD (chronic kidney disease), stage III: Plan This is an 89-year-old male who has significant past medical history of HTN, HLD, prediabetes, ascending aortic aneurysm, CKD stage III, gout, Alzheimer's, depression and tobacco use who presents to ED secondary to swelling of his upper lip. On presentation to the ED, vital signs were stable. The angioedema was thought likely secondary to lisinopril. Patient was started on steroid, Zyrtec and was admitted for observation. Patient's upper lip swelling since decreased significantly overnight and was very close to baseline at the time of the discharge. Patient and family was advised to not use JUAN MANUEL inhibitors going forward.. Lisinopril was discontinued and amlodipine was started. Patient was given prescription for prednisone and antihistamines for 1 week. Patient to follow-up with PCP after discharge. He may need allergy/immunology referral if he has recurrent episodes despite being off lisinopril. Please note the above document was generated using voice recognition software. It may contain grammatical, syntax or spelling errors. Any formal questions or concerns about the content, text or information contained within the body of this dictation should be directly addressed to the provider for clarification Total Time Total Time Spent Total Time Spent (In Minutes): 45 Total Time Includes: Examination of the Patient, Discharge Planning, Medication Reconciliation, Communication With Other Providers and Other Discharge Plan Discharge Items Patient Disposition: Home - Self-Care Reason For Visit: ANGIOEDEMA Discharge Diagnosis: Angioedema Activity: Resume your previous activity Non-emergency contact: Primary Care Provider Call non-emergency contact if: you have any medication questions and your symptoms worsen Follow-up/Referrals: Jam Loo, [Primary Care Provider] - (The office will call you with an appointment for follow up.) Diet: Regular Addtl Attending Provider Instructions: You were admitted to the hospital due to angioedema likely secondary to medication or lisinopril. Please avoid using this medication or any medication from this class from going forward. An appointment will be made with primary care doctor for follow-up. You are prescribed amlodipine 5 mg to be taken once a day for high blood pressure. Pending Studies at Discharge: No Stand-Alone Forms: [facility] 2U, Smoking Cessation Medications and DC Order Prescriptions: New cetirizine 10 mg Tablet 10 mg PO QAM 7 Days Qty: 7 0RF prednisone 20 mg Tablet See Taper PO DAILY Qty: 7 0RF Taper: Taper, Blank 40 mg DAILY for 2 Days 20 mg DAILY for 2 Days 10 mg DAILY for 2 Days famotidine [Pepcid] 20 mg tablet 20 mg PO BID Qty: 7 0RF amlodipine 5 mg tablet 5 mg PO DAILY Qty: 30 0RF Continued furosemide 40 mg tablet 40 mg PO DAILY potassium chloride 10 mEq capsule, extended release 10 meq PO DAILY allopurinol 200 mg Tablet 200 mg PO QAM acetaminophen [Tylenol Extra Strength] 500 mg Tablet 1,000 mg PO Q8 Qty: 60 0RF aspirin 81 mg Tablet,Delayed Release (Dr/Ec) 81 mg PO BID Qty: 60 0RF Discharge Orders: Discharge Order (Routine); Ordered 11/23/24 Ordered By: John Mercado Admission Data Admit Date/Time: 11/22/24 18:12 Attending Provider: John Mercado Admit Provider: Stephanie Villalba Primary Care Provider: Jam Loo Other Providers: Stephanie Villalba Other Interventions: Discharge Summary Assessment (RN) Last Done: 11/23/24 11:27
--- OUTSIDE RECORDS SUMMARY | 2024-11-23 18:13 | External Medical Summary | Summary of Care ---
Author Name Unknown Organization [facility] Address [address] [place] [address] Phone [phone] Care Team Providers Care Coconut Candy Maker Name Role Phone Jam Loo DO Primary Care Provider [phone] Reason for Visit * Reason Comments Acute Encounter Details Date Type Department Care Team (Latest Contact Info) Description 11/22/2024 3:40 PM EST Office Visit Family Practice [address] [place] [address] [place] [address] Jam Loo DO [address] [place] [address] Angioedema, initial encounter*; 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 behavioral disturbance, psychotic disturbance, mood disturbance, or anxiety (HCC); Current moderate episode of major depressive disorder without prior episode (HCC); Hypertensive kidney disease with stage 3a chronic kidney disease (HCC); Pure hypercholesterolemia; Exudative age-related macular degeneration, right eye, with active choroidal neovascularization (HCC); Prediabetes; Sensorineural hearing loss, bilateral Allergies No known active allergiesdocumented as of this encounter (statuses as of 11/23/2024) Medications Aspirin 81 MG Tablet Take 1 Tablet by mouth in the morning. Active Diclofenac Sodium 1 % External Gel (Voltaren) Apply topically to affected area 2 g in the morning AND 2 g before bedtime. Apply to bilateral knees. 100 g 3 05/07/20 22 Active Additional Information Patient not taking.Reported on 09/01/2024 Acetaminophen 500 MG Oral Tablet (Tylenol) Take 2 Tablets by mouth every 6 hours as needed for Pain, Moderate. 08/04/20 23 Active Furosemide 40 MG Oral Tablet (Lasix)Indicatio ns:Hypertensive kidney disease with stage 3a chronic kidney disease (HCC) Take 1 Tablet by mouth in the morning. 90 Tablet 1 04/13/20 24 Active Polyethylene Glycol 3350 17 GM/SCOOP Oral Powder (MiraLax)Indicat ions:Slow transit constipation Take 17 g by mouth in the morning. Dissolve one heaping tablespoon in 8 ounces of water or juice.. 510 g 3 06/16/20 24 Active Vitamin B12 500 MCG Oral TabletIndication s:B12 deficiency Take 1 Tablet by mouth daily. 06/17/20 24 Active Allopurinol 100 MG Oral Tablet (Zyloprim)Indica tions:Gouty arthropathy Take 2 Tablets by mouth in the morning. 200 Tablet 2 07/06/20 24 Active Potassium Chloride ER 10 MEQ Oral Capsule Extended ReleaseIndicatio ns:Hypertensive kidney disease with stage 3a chronic kidney disease (HCC),HTN, goal below 140/90 Take 1 Capsule by mouth in the morning. 90 Capsule 2 07/06/20 24 Active Lisinopril 10 MG Oral Tablet (Prinivil)Indica tions:Hypertensi ve kidney disease with stage 3a chronic kidney disease (HCC) Take 1 Tablet by mouth in the morning. 90 Tablet 3 06/16/20 24 025 Discontin ued(Adver se reaction) documented as of this encounter (statuses as of 11/23/2024) Active Problems Problem Noted Date Diagnosed Date [...] as of this encounter (statuses as of 11/23/2024) Resolved Problems Problem Noted Date Diagnosed Date Resolved Date ADVANCE DIRECTIVE INFORMATION 03/27/2007 08/23/2024 Overview (03/27/2007): Yes, Patient instructed to provide copy of advance directive for provider to review and to be scanned into Electronic Medical Record Seborrheic dermatitis 09/30/20022021 Overview (07/21/2017): ICD-10 update of inactive term Presbyacusis 01/30/2022 documented as of this encounter (statuses as of 11/23/2024) Immunizations Name Administration Dates Next Due COVID-19 [...] Current Snuff Tobacco Cessation:Ready to Q uit: Not Asked; Counseling Given: Yes Comments:chew-one can a week Alcohol Use Standard Drinks/Week Comments Yes 0 (1 standard drink = 0.6 oz pur e alcohol) rarely PHQ-2 Answer Date Recorded PHQ Adult Total Score 0 11/22/2024 Hunger Vital Sign Answer Date Recorded Within [...] 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 Not on file Not on fi le documented as of this encounter Last Filed Vital Signs Vital Sign Reading Time Taken Comments Blood Pressure 138/86 11/22/2024 3:30 PM EST Pulse 72 11/22/2024 3:30 PM EST Temperature 35.8 C (96.5 F) 11/22/2024 3:30 PM ES T Respiratory Rate 16 11/22/2024 3:30 PM EST Oxygen Saturation 93% 11/22/2024 3:30 PM EST Inhaled Oxygen Concentration - - Weight 115.2 kg (253 lb 14.4 oz) 11/22/2024 3:30 PM EST Height 175.3 cm (5' 9") 11/22/2024 3:30 PM EST Body Mass Index 37.49 11/22/2024 3:30 PM EST documented in this encounter Progress Notes * Jam Loo, DO - 11/22/2024 4:44 PM EST SUBJECTIVE: Star Macario is a 89 year old male. Chief Complaint Patient presents with Acute HPI: Patient is an 89 year old male with a history of HTN, Hyperlipidemia, CKD stage III, Prediabetes, Gout, right knee replacement, mild dementia, and leg edema that is seen for upper lip swelling that started this morning and is worsening. No chest pain or shortness of breath. No tongue swelling is present. He has not eaten any new foods today. No change in hygiene products. He is on lisinopril. He is able to eat and has not problems swallowing food. 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 510 g 3 Vitamin B12 500 MCG Oral Tablet [...] arthropathy 03/22/2022 HTN, goal below 140/90 01/30/2022 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 behavioral disturbance, psychotic disturbance, mood disturbance, or anxiety ([facility]) 09/02/2024 Other malignant neoplasm of skin, site unspecified Squamous Cell Carcinoma of Skin Prediabetes 08/28/2022 Presbyacusis 2006 Primary osteoarthritis of both knees 04/26/2022 Pulsatile tinnitus 2006 Pure hypercholesterolemia 01/30/2022 Seborrheic dermatitis, unspecified Seborrheic Dermatitis Sensorineural hearing loss, bilateral 2005 Status post total right knee replacement 09/10/2023 Past Surgical History: Procedure Laterality Date CA ARTHRP KNE CONDYLE&PLATU MEDIAL&LAT COMPARTMENTS Right 08/27/2023 REMOVAL OF APPENDIX age 12-14 REMOVAL OF KIDNEY STONE 2006 REMOVE CATARACT, INSERT LENS PROSTH Bilateral Dr. Nelson REPAIR INITIAL INGUINAL HERNIA REDUCIBLE AGE 6 OR MORE Repair initial hernia ,left inguinal hernia [facility] Dr Galindo 12/23/11 Review of patient's allergies indicates: No Known Allergies Review of Systems Constitutional: Negative for appetite change, chills, fatigue, fever and unexpected weight change. HENT: Negative for [...] dizziness, syncope and headaches. Psychiatric/Behavioral: Positive for decreased concentration. Negative for confusion. Memory loss is present OBJECTIVE: BP 138/86 | Pulse 72 | Temp 96.5 F (35.8 C) | Resp 16 | Ht 5' 9" (1.753 m) | Wt 253 lb 14.4 oz (115.2 kg) | SpO2 93% | BMI 37.49 kg/m | BSA 2.37 m Physical Exam Vitals and nursing note reviewed. Constitutional: General: He is not in acute distress. Appearance: Normal appearance. He is not toxic-appearing. HENT: Head: Normocephalic and atraumatic. Mouth/Throat: Mouth: Mucous membranes are moist. Comments: Upper lip swelling. No tongue edema Cardiovascular: Rate and Rhythm: Normal rate and regular rhythm. Neurological: Mental Status: He is alert. 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 behavioral disturbance, psychotic disturbance, mood disturbance, or anxiety (HCC) Current moderate episode of major depressive disorder without prior episode (HCC) Hypertensive kidney disease with stage 3a chronic kidney disease (HCC) Continue Furosemide Stop Lisinopril Pure hypercholesterolemia Exudative age-related macular degeneration, right eye, with active choroidal neovascularization (HCC) Prediabetes Sensorineural hearing loss, bilateral Jam Loo DO 4:44 PM 11/22/2024 documented in this encounter Nursing Notes * Josiane Slater LPN - 11/22/2024 3:29 PM EST Upper lip swollen, started today in the morning., documented in this encounter Plan of Treatment Upcoming Encounters Date Type Department Care Team (Late st Contact Info) Description 12/14/2024 8:40 AM EST Office Visit Family Practice [address] [facility] [address] [place] [phone] Jam Loo DO [address] [place] [address] 08/15/2025 8:30 AM EDT Cardiac Studies Cardiac Studies, [facility] [address] [facility] [place] [id number] Health Maintenance Due Date Last Done Comments Adult Wellness Visit 2002 CKD HGB USE SMARTSET 65195 01/12/202501/12, 04/29/2023, 04/29/2023, Additional history exists Albumin/Creatinine Ratio 05/13/2025 05/13/2024, 11/0 06/2022 CKD PHOS USE SMARTSET [id number] 05/13/202504/20, 04/29/2023, 03/22/2022 HbA1c 05/13/2025 05/13/2024, 12/19, 04/29/2023, Additional history exists Depression Monitoring 11/22/2025 11/22/2024 DTap/Tdap Vaccines (2 - Td or Tdap) [...] as of this encounter Visit Diagnoses Diagnosis Angioedema, initial encounter- Primary 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 behavioral disturbance, psychotic disturbance, mood disturbance, or anxiety (HCC) Current moderate episode of major depressive disorder without prior episode (HCC) Hypertensive kidney disease with stage 3a chronic kidney disease (HCC) Pure hypercholesterolemia Exudative age-related macular degeneration, right eye, with active choroidal neovascularization (HCC) Prediabetes Other abnormal glucose Sensorineural hearing loss, bilateral documented in this encounter Care Teams Coconut Candy Maker Relationship Specialty Start Date End Date Jam Loo DO [address] [place] [address] PCP - General Internal Medicine 05/12/24 documented as of this encounter
--- OUTSIDE RECORDS SUMMARY | 2024-11-23 18:13 | External Medical Summary | Summary of Care ---
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 * Telephone Encounter - Josiane Solano RN - 11/22/2024 3:12 PM EST Call to pt-no answer-message left that I hoped they were on their way to the office, but if he was having any difficulty breathing that they should go directly to the ER. Requested a call back at [phone]. * Telephone Encounter - Josiane Slater LPN - 11/22/2024 3:06 PM EST Called, left message for patient to return call. Unsure if problems breathing. * Telephone Encounter - Kary Gomez OSA - 11/22/2024 2:33 PM EST Nupur called to see if Star can be seen. She states she went away today and when she returned, she found Star's lip was swollen 5 times bigger than normal. She had him put ice on it but it did not help. Star was added to Dr. Loo's schedule for 3:40 today. documented in this encounter Plan of Treatment Upcoming Encounters Date Type Department Care Team (Late st Contact Info) Description 12/14/2024 8:40 AM EST Office Visit Family Practice [address] [place] [address] [place] [phone] [facility] [address] 08/15/2025 8:30 AM EDT Cardiac Studies Cardiac Studies, [facility] [address] [place] [address] Health Maintenance Due Date Last Done Comments Adult Wellness Visit 2002 CKD HGB USE SMARTSET [id number] 01/12/202501/12, 04/29/2023, 04/29/2023, Additional history exists Albumin/Creatinine Ratio 05/13/2025 05/13/2024, 11/0 06/2022 CKD PHOS USE SMARTSET 45107 05/13/202504/20, 04/29/2023, 03/22/2022 HbA1c 05/13/2025 05/13/2024, 12/19, [...] filedocumented as of this encounter Care Teams Curriculum And Assessment Director Relationship Specialty Start Date End Date Jam Loo DO [address] [place] [address] PCP - General Internal Medicine 05/12/24 documented as of this encounter
== END 2024-11-23 14:04 | disposition home or self-care (01) ==
LOC: 2E 16:22 → ED 16:22 → SUATTDRO 18:12 → 2E 20:35